=== PATIENT | female | born 1955 | race American Indian/Alaskan Native ===

== ENCOUNTER 2016-07-18 22:16 | Emergency (ER) | payer OTHER ==
[2016-07-18 22:27] VITALS: BMI 42.6
--- NOTE | 2016-07-18 23:24 | PDOC ---
History of Present Illness - History of Present Illness Initial Comments: 07/18/16 23:39 Patient is a 61 year old female with significant medical hx of asthma, HTN, and DVT who is presenting to the ED for concern of DVT. Patient reports a history of left lower extremity DVT nine months ago, for which she was treated with blood thinners up until six months ago. She states that her right leg is becoming restless and developing bruising similar to her last DVT. The patient put bengay on her leg with little relief. She was told by PMD to come to the ED for rule out ultrasound. Patient denies any lower extremity swelling or pain, shortness of breath, chest pain, lightheadedness, or dizziness. PMD: Edith Durant <Lesley Day - Last Filed: 07/19/16 01:17> <Portillo Swift - Last Filed: 07/19/16 01:23> - General Chief Complaint: Pain, Acute Stated Complaint: PAIN Time Seen by Provider: 07/18/16 23:08 Past History <Lesley Day - Last Filed: 07/19/16 01:17> - Past Medical History Asthma: Yes COPD: Yes HTN: Yes Suicide Attempt (Hx): No - Immunization History Immunization Up to Date: Yes - Psycho/Social/Smoking Cessation Hx Anxiety: No Suicidal Ideation: No Smoking Status: No Smoking History: Never smoked Have you smoked in the past 12 months: No Number of Cigarettes Smoked Daily: 0 If you are a former smoker, when did you quit?: 30 years ago Information on smoking cessation initiated: No Hx Alcohol Use: No Drug/Substance Use Hx: No Substance Use Type: None <Portillo Swift - Last Filed: 07/19/16 01:23> - Past Medical History Allergies/Adverse Reactions: Allergies Allergy/AdvReac Type Severity Reaction Status Date / Time erythromycin base Allergy Hives Verified 07/18/16 22:27 [Erythromycin Base] Home Medications: Ambulatory Orders Montelukast Na [Singulair -] 10 mg PO HS #0 tablet 01/03/13 Valsartan [Diovan] 160 mg PO DAILY #0 tablet 01/03/13 Albuterol Sulfate Inhaler - [Ventolin HFA Inhaler -] 2 inh PO Q4HWA PRN Aspirin [ASA -] 81 mg PO DAILY 08/20/14 Fluticasone/Salmeterol [Advair Hfa 230-21 Mcg Inhaler] 1 inh PO BID 08/20/14 Albuterol 2.5/Ipratropium 0.5 [Duoneb -] 1 neb IH BID 11/25/14 Review of Systems - Review of Systems Comments:: 07/18/16 23:46 GENERAL/CONSTITUTIONAL: No fever or chills. No weakness. HEAD, EYES, EARS, NOSE AND THROAT: No change in vision. No ear pain or discharge. No sore throat. CARDIOVASCULAR: No chest pain or shortness of breath. RESPIRATORY: No cough, wheezing, or hemoptysis. GASTROINTESTINAL: No nausea, vomiting, diarrhea or constipation. GENITOURINARY: No dysuria, frequency, or change in urination. MUSCULOSKELETAL: Right leg restlessness and bruising. No joint or muscle swelling or pain. No neck or back pain. SKIN: No rash NEUROLOGIC: No headache, vertigo, loss of consciousness, or change in strength/ sensation. <Lesley Day - Last Filed: 07/19/16 01:17> *Physical Exam - Vital Signs Last Vital Signs Temp Pulse Resp BP Pulse Ox 97.6 F 98 H 18 127/82 95 07/18/16 22:20 07/18/16 22:20 07/18/16 22:20 07/18/16 22:20 07/18/16 22:20 - Physical Exam Comments: 07/18/16 23:47 GENERAL: Awake, alert, and fully oriented, in no acute distress HEAD: No signs of trauma EYES: PERRLA, EOMI, sclera anicteric, conjunctiva clear ENT: Auricles normal inspection, hearing grossly normal, nares patent, oropharynx clear without exudates. Moist mucosa NECK: Normal ROM, supple, no lymphadenopathy, JVD, or masses LUNGS: Breath sounds equal, clear to auscultation bilaterally. No wheezes, and no crackles HEART: Regular rate and rhythm, normal S1 and S2, no murmurs, rubs or gallops ABDOMEN: Soft, nontender, normoactive bowel sounds. No guarding, no rebound. No masses EXTREMITIES: Two bruises, one on each leg just below the knees. No swelling, no pain. No clubbing or cyanosis. NEUROLOGICAL: Cranial nerves II through XII grossly intact. Normal speech, normal gait SKIN: Warm, Dry, normal turgor, no rashes or lesions noted. ENDOCRINE: No increased thirst. No abnormal weight change. HEMATOLOGIC/LYMPHATIC: No anemia, easy bleeding, or history of blood clots. ALLERGIC/IMMUNOLOGIC: No hives or skin allergy. <Lesley Day - Last Filed: 07/19/16 01:17> - Vital Signs Last Vital Signs Temp Pulse Resp BP Pulse Ox 97.6 F 98 H 18 127/82 95 07/18/16 22:20 07/18/16 22:20 07/18/16 22:20 07/18/16 22:20 07/18/16 22:20 <Portillo Swift - Filed: 07/19/16 01:23> ED Treatment Course - RADIOLOGY Radiograph Interpretation: 07/19/16 01:17 Net Developer Software Engineer C: (osman) Report Date: 07/18/2016 23:32:00 Report Status: Preliminary Begin of Report Content Referring Physician: Portillo Swift Patient Name: Paulette Kerr THIS IS A PRELIMINARYREPORT FROM [facility]LE OPERATOR EXAM: Venous duplex bilateral lower extremities IMAGES: 41 I NDICATION: Rule out DVT DATE OF SERVICE: 2016-07-18 23:32:46.0 COMPARISON: none FINDINGS: There is no DVT in the right or left lower extremity. IMPRESSION: No DVT. THIS DOCUMENT HAS BEEN ELECTRONICALLY SIGNED Tomy Velasco MD 07/19/2016 00:14 SHELBY Kessler Please call [facility] Installation Engineer [phone] with questions. End of Report Content <Lesley Day - Last Filed: 07/19/16 01:17> - RADIOLOGY Radiology Studies Ordered: Category Date Time Status DUPLEX VASCUL US-2LEGS [US] Stat Ultrasound 07/18/16 23:12 Ordered <Portillo Swift - Last Filed: 07/19/16 01:23> Medical Decision Making - Medical Decision Making 07/19/16 01:21 Duplex negative for both legs <Portillo Swift - Last Filed: 07/19/16 01:23> *DC/Admit/Observation/Transfer - Attestations Scribe Attestion: 07/18/16 23:55 Documentation prepared by Lesley Day, acting as medical radiation therapist for Portillo Swift MD. <Lesley Day - Last Filed: 07/19/16 01:17> - Discharge Dispostion Admit: No - Attestations Physician Attestion: 07/18/16 23:24 I, Dr. Portillo Swift, attest that this document has been prepared under my direction and personally reviewed by me in its entirety. I further attest, that it accurately reflects all work, treatment, procedures and medical decision -making performed by me. <Portillo Swift - Last Filed: 07/19/16 01:23> Diagnosis at time of Disposition: Multiple bruises - Discharge Dispostion Disposition: HOME Condition at time of disposition: Good - Referrals Referrals: Edith Durant [Primary Care Provider] - - Patient Instructions Printed Discharge Instructions: Easy Bruising (Alternative Therapy), DI for Contusion Additional Instructions: Ms. Kerr- Please follow up with your regular doctor. Your Ultrasounds were both negative. No Blood CLots Best- DR. Portillo Swift
[2016-07-19 01:47] VITALS: BP 123/80; PULSE 75; TEMP 98.3
== END 2016-07-19 01:46 | disposition home or self-care (01) ==
LOC: JER 22:16
DX: T14.8 Other injury of unspecified body region (principal); J45.909 Unspecified asthma, uncomplicated; I10 Essential (primary) hypertension; Z86.718 Personal history of other venous thrombosis and embolism; Z87.891 Personal history of nicotine dependence
CPT/HCPCS: 93970-TC; 99281-25

== ENCOUNTER 2016-11-11 20:32 | Emergency (ER) | payer OTHER ==
[2016-11-11 20:57] VITALS: BP 125/55; PULSE 80; TEMP 98.2; BMI 44.3
--- NOTE | 2016-11-11 21:23 | PDOC ---
Attending Attestation - Resident Resident Name: Agapito Vera - ED Attending Attestation I have performed the following: I have examined & evaluated the patient, The case was reviewed & discussed with the resident, I agree w/resident's findings & plan, Exceptions are as noted - HPI HPI: 11/11/16 21:21 "lung pain, on and off past 48Hours - Physicial Exam PE: 11/11/16 21:21 VSS/NAD No Hypoxia - Medical Decision Making 11/11/16 21:[address] Vera Assessment and plan
--- NOTE | 2016-11-11 21:45 | PDOC ---
History of Present Illness - General Chief Complaint: Pain Stated Complaint: LUNG PAIN Time Seen by Provider: 11/11/16 21:11 History Source: Patient Exam Limitations: No Limitations - History of Present Illness Initial Comments: 61yo F with PMH asthma/COPD, HTN, DVT presents c/o lung pain/chest pain. Pain started 3 hrs ago while pt was in a friend's basement office, and pt had chills at the time. Pt took her Ventolin inhaler which did not relieve pain. Pain is described as constant, pressure, radiating from Left lower lung to mid sub- sternum, rated 8/10. Pt has had similar lung pain before when she had bronchitis. Pt reports her asthma has been acting up for the last 2 days which she attributes to the change in weather and to trying to adjust her Singulair dosing to nighttime, but then she would forget to take it. Pt denies fever, SOB , sick contacts. 11/11/16 21:42 Timing/Duration: 1-3 hours Severity: moderate Associated Symptoms: reports: chest pain. denies: cough, diaphoresis, headaches , shortness of breath, syncope Past History - Past Medical History Allergies/Adverse Reactions: Allergies Allergy/AdvReac Type Severity Reaction Status Date / Time erythromycin base Allergy Hives Verified 11/11/16 20:54 [Erythromycin Base] Home Medications: Ambulatory Orders Montelukast Na [Singulair -] 10 mg PO HS #0 tablet 01/03/13 Valsartan [Diovan] 160 mg PO DAILY #0 tablet 01/03/13 Albuterol Sulfate Inhaler - [Ventolin HFA Inhaler -] 2 inh PO Q4HWA PRN Fluticasone/Salmeterol [Advair Hfa 230-21 Mcg Inhaler] 1 inh PO BID 08/20/14 Albuterol 2.5/Ipratropium 0.5 [Duoneb -] 1 neb IH BID 11/25/14 Celebrex 0 mg PO DAILY 11/11/16 Asthma: Yes COPD: Yes DVT: Yes HTN: Yes Suicide Attempt (Hx): No - Immunization History Immunization Up to Date: Yes - Psycho/Social/Smoking Cessation Hx Anxiety: No Suicidal Ideation: No Smoking Status: No Smoking History: Former smoker Have you smoked in the past 12 months: No Number of Cigarettes Smoked Daily: 0 If you are a former smoker, when did you quit?: 30 years ago Information on smoking cessation initiated: No Hx Alcohol Use: No Drug/Substance Use Hx: No Substance Use Type: None Review of Systems - Review of Systems Able to Perform ROS?: Yes Is the patient limited B[place]an proficient: No Constitutional: Yes: Chills. No: Diaphoresis, Fever HEENTM: No: Recent change in vision, Ear Pain, Nose Pain, Throat Pain Respiratory: No: Cough, Orthopnea, Shortness of Breath, Stridor, Wheezing, Hemoptysis Cardiac (ROS): Yes: Chest Pain. No: Edema, Irregular Heart Rate, Lightheadedness, Palpitations, Syncope ABD/GI: Yes: Nausea (earlier today, slight). No: Abdominal Distended, Constipated, Diarrhea, Rectal Bleeding, Vomiting, Abdominal cramping : No: Burning, Dysuria, Hematuria Musculoskeletal: Yes: Back Pain (chronic), Joint Pain (Right shoulder pain, pt reports hx of bursitis and attributes pain to injection wearing off). No: Muscle Pain Integumentary: No: Dryness, Lesions, Rash Neurological: No: Headache, Weakness, Dizziness *Physical Exam - Vital Signs Last Vital Signs Temp Pulse Resp BP Pulse Ox 98.2 F 80 20 125/55 97 11/11/16 20:55 11/11/16 20:55 11/11/16 20:55 11/11/16 20:55 11/11/16 20:55 - Physical Exam General Appearance: Yes: Nourished, Appropriately Dressed, Moderate Distress, Obese HEENT: positive: EOMI, Normal Voice, Other (moist mucous membranes). negative: Pale Conjunctivae, Scleral Icterus (R), Scleral Icterus (L) Neck: positive: Trachea midline, Supple Respiratory/Chest: positive: Lungs Clear, Normal Breath Sounds. negative: Chest Tender (non tender to palpation, pt could localize where chest/lung pain originated as Left lower lung in her back), Respiratory Distress, Accessory Muscle Use Cardiovascular: positive: Regular Rhythm, Regular Rate, S1, S2. negative: Murmur Vascular Pulses: Dorsalis-Pedis (R): 3+, Doralis-Pedis (L): 3+ Gastrointestinal/Abdominal: positive: Soft. negative: Distended, Guarding, Rebound, Tenderness Extremity: positive: Swelling (Left LE +1 pitting edema). negative: Calf Tenderness, Erythema Integumentary: positive: Dry, Warm. negative: Rash Neurologic: positive: Fully Oriented, Alert, Normal Response, Motor Strength 5/5 ED Treatment Course - LABORATORY CBC & Chemistry Diagram: 11/11/16 22:10 11/11/16 22:10 Medical Decision Making - Medical Decision Making 61yo F with PMH asthma/COPD, HTN, DVT presenting with lung pain/chest pain. Pt moderately distressed and tearful on exam. Chest non-tender to palpation. Pt localizes origin of pain to Left lower lung in her back radiating to mid sub sternal. Pt reports that pain feels similar to last time she had bronchitis. Left LE +1 pitting edema noted on exam. EKG CXR ignacio LE Duplex US CBC with diff, CMP Trop d-dimer INR 11/11/16 22:07 11/12/16 00:39 CBC with diff - WBC 12.0 CMP unremarkable Trop (-) d-dimer (-) INR wnl EKG - sinus rhythm with 1st degree AV block, prolonged QTc 483. 11/12/16 01:20 CXR sans acute pathology, official report pending. Duplex US negative bilaterally for DVT. Tylenol 1g IVPB given for pain. Pt resting comfortably on f/u. Pt can go home. Advised to take Tylenol for pain. *DC/Admit/Observation/Transfer Diagnosis at time of Disposition: Atypical chest pain - Discharge Dispostion Disposition: HOME Condition at time of disposition: Improved Admit: No - Patient Instructions Printed Discharge Instructions: DI for Atypical Chest Pain Additional Instructions: Please return to hospital for persistent or worsening symptoms. Please follow-up with Primary Care Doctor. Please take Tylenol for pain.
[2016-11-11 22:23] LABS: BASOPHIL 0.5 % (0-2.0); MCH 28.5 pg (25.7-33.7); MCHC 33.2 g/dl (32.0-36.0); MEAN CELL VOLUME 85.8 fl (80-96); MEAN PLT VOLUME 9.1 fl (7.5-11.1); NEUTROPHILS 65.2 % (42.8-82.8); PLATELET COUNT 222 K/MM3 (134-434); RDW 14.4 % (11.6-15.6)
[2016-11-11 22:35] LABS: INR 1.01 (0.82-1.09)
[2016-11-11 22:38] LABS: D-DIMER < 200 ng/ml (<200-235)
[2016-11-11 23:00] LABS: ALBUMIN 3.4 g/dl (3.4-5.0); ANION GAP 10 (8-16); BILIRUBIN,TOTAL 0.3 mg/dL (0.2-1.0); CALCIUM 8.9 mg/dL (8.5-10.1); CO2 25 mmol/L (21-32); CREATININE 1.2 mg/dL (0.55-1.02); GLUCOSE,RANDOM 108 mg/dL (74-106); SGOT/AST 15 U/L (15-37); SGPT/ALT 20 U/L (12-78); TOT PROT 6.6 g/dl (6.4-8.2)
[2016-11-11 23:02] LABS: ALK PHOS 113 U/L (45-117); CPK 159 IU/L (26-192); TROPONIN I < 0.02 ng/ml (0.00-0.05)
[2016-11-11] MEDS ORDERED: morphine CARPU-JECT 2 MG/1 ML DISP.SYRIN IVPUSH ONE (23:35)
[2016-11-11] MEDS ORDERED: KETOROLAC TROMETHAMINE 60 MG/2 ML VIAL IVPUSH ONE (23:47)
[2016-11-11] MEDS ORDERED: ACETAMINOPHEN 1000 MG/100 ML VIAL (NON FORMULARY) IVPB ONE (23:50)
[2016-11-11] MEDS ORDERED: ACETAMINOPHEN INJECTION 100 ML IVPB ONE (23:56)
--- NOTE | 2016-11-12 17:39 | EKG ---
Test Reason : Blood Pressure : / mmHG Vent. Rate : 082 BPM Atrial Rate : 082 BPM P-R Int : 250 ms QRS Dur : 088 ms QT Int : 414 ms P-R-T Axes : 059 006 016 degrees QTc Int : 483 ms SINUS RHYTHM WITH 1ST DEGREE A-V BLOCK NONSPECIFIC ST AND T WAVE ABNORMALITY PROLONGED QT ABNORMAL ECG WHEN COMPARED WITH ECG OF 05-NOV-2014 01:54, ST-T ABNORMALITIES IN PRECORDIAL LEADS REPEAT EKG IF CLINICALLY INDICATED Confirmed by JADA CARTER MD ([id number]) on 11/12/2016 5:39:17 PM Referred By: Confirmed By:JADA CARTER MD
== END 2016-11-12 01:49 | disposition home or self-care (01) ==
LOC: JER 20:32
PROC: 3E033NZ Introduction of Analgesics, Hypnotics, Sedatives into Peripheral Vein, Percutaneous Approach (ICD-10-PCS; principal; 2016-11-11)
DX: R07.89 Other chest pain (principal); J45.909 Unspecified asthma, uncomplicated; J44.9 Chronic obstructive pulmonary disease, unspecified; I10 Essential (primary) hypertension; Z86.718 Personal history of other venous thrombosis and embolism; Z87.891 Personal history of nicotine dependence
CPT/HCPCS: 36415; 71010-TC; 80053; 82553; 84484; 85025; 85379; 85610; 93005; 93010; 93970-TC; 99284-25

== ENCOUNTER 2017-06-02 08:00 | Inpatient (IN) | payer BC ==
[2017-05-29 15:03] VITALS: BMI 47.3
[2017-06-02] MEDS ORDERED: methylPREDNISolone NA SUCC 40 MG/1 ML VIAL ONE (10:47)
[2017-06-02] MEDS ORDERED: methylPREDNISolone NA SUCC 40 MG/1 ML VIAL IVPUSH ONE ×2 (10:52)
[2017-06-02] MEDS ORDERED: ALBUTEROL SO4 0.083% IH SOL 2.5 MG/3 ML VIAL.NEB. NEB ONE ×3 (11:33→21:18)
[2017-06-02] MEDS ORDERED: MIDAZOLAM HCL 2 MG/2 ML SINGLE DOSE VIAL ONE (12:31)
[2017-06-02] MEDS ORDERED: BUPIVACAINE HCL/PF 0.5% (5MG/ML) 10 ML VIAL ONE (12:37)
[2017-06-02] MEDS ORDERED: ceFAZolin SODIUM 1 GM VIAL ONE (12:49)
[2017-06-02] MEDS ORDERED: fentaNYL CITRATE 250 MCG/5 ML VIAL ONE (12:49)
[2017-06-02] MEDS ORDERED: LIDOCAINE HCL/PF 2% SDV 5ML VIAL ONE (12:49)
[2017-06-02] MEDS ORDERED: DEXAMETHASONE SOD PHOSPHATE 4 MG/1 ML VIAL ONE ×2 (12:49→15:14)
[2017-06-02] MEDS ORDERED: PROPOFOL 20 ML ONE ×2 (12:50)
[2017-06-02] MEDS ORDERED: ROCURONIUM BROMIDE 50 MG/5 ML VIAL ONE ×2 (12:50)
[2017-06-02] MEDS ORDERED: ceFAZolin SODIUM 1 GM VIAL IVPB ONE (13:28)
[2017-06-02] MEDS ORDERED: ONDANSETRON 4 MG/2 ML VIAL IVPUSH PRN ×2 (13:32→15:23)
[2017-06-02] MEDS ORDERED: SEVOFLURANE 250 ML BTL ONE (13:35)
[2017-06-02] MEDS ORDERED: BUPIVACAINE HCL/PF 0.5% (5MG/ML) 10 ML VIAL IJ ONE ×2 (14:02→15:12)
--- NOTE | 2017-06-02 15:34 | OP ---
Operative Note - Note: Operative Date: 06/02/17 Pre-Operative Diagnosis: Morbid Obesity. Hypertension. Sleep Apnea Operation: Laparoscopic Vertical Sleeve Gastrectomy. Wedge Biopsy of Liver. Diagnostic Laparoscopy Findings: Greater curve sleeve gastrectomy performed with #[address] Wedge Biopsy performed on enlarged left lobe of liver Post-Operative Diagnosis: Same as Pre-op (Hepatomegaly) Surgeon: Salas Farrell Author Agent: Sanjuanita Brown Anesthesia: General Specimens Removed: Greater curve of stomach. Wedge biopsy of left liver Estimated Blood Loss (mls): 30 Operative Report Dictated: Yes
[2017-06-02] MEDS ORDERED: ONDANSETRON 4 MG/2 ML VIAL ONE (15:45)
[2017-06-02] MEDS ORDERED: FAMOTIDINE 20 MG/50 ML IVPB 20 MG/50 ML MG IVPB ONE (15:46)
[2017-06-02] MEDS ORDERED: METOCLOPRAMIDE HCL INJECTION 10 MG/2 ML VIAL ONE (15:46)
--- NOTE | 2017-06-02 15:52 | SURG ---
Surgery Food Processing Chemist Note Food Processing Chemist: Sanjuanita rBown PA-C Date of Service: 06/02/17 Diagnosis: morbid obesity Procedure: Laparoscopic Vertical Sleeve Gastrectomy. Wedge Biopsy of Liver. Diagnostic Laparoscopy I was present for the entirety of the operative procedure. For further detail, please refer to operative report. Visit type - Case Type Case Type: Scheduled Admission - Emergency Emergency Visit: No - New patient This patient is new to me today: Yes Date on this admission: 06/02/17
[2017-06-02] MEDS ORDERED: FAMOTIDINE 20 MG PREMIXED IVPB IVPB ONE (15:55)
[2017-06-02] MEDS ORDERED: ONDANSETRON 4 MG/2 ML VIAL IVPUSH ONE (16:15)
[2017-06-02] MEDS ORDERED: ALBUTEROL SO4 0.083% IH SOL 2.5 MG/3 ML VIAL.NEB. NEB PRN (16:16)
--- NOTE | 2017-06-02 16:40 | OP ---
DATE OF OPERATION: 06/02/2017 PREOPERATIVE DIAGNOSES: 1. Morbid obesity. 2. Hypertension. 3. Sleep apnea. POSTOPERATIVE DIAGNOSES: 1. Morbid obesity. 2. Hypertension. 3. Sleep apnea. 4. Hepatomegaly. PROCEDURE PERFORMED: 1. Laparoscopic vertical sleeve gastrectomy. 2. Wedge biopsy of the left lobe of the liver. 3. Diagnostic laparoscopy. OPERATING SURGEON: Angie Farrell MD ADJUNCT PROFESSOR OF VOICE: QUAN Camacho ANESTHESIA: General. OPERATIVE PROCEDURE: The patient was brought in to the operating room, placed on the OR table in a supine position. All precautions were taken initially including padding for the back and the feet and Venodyne boots were placed on both lower extremities. At that point the abdomen was prepped and draped in the usual manner. A Veress needle was placed in the left upper quadrant and a pneumoperitoneum was established. A number 12 bladeless trocar was placed in the left upper quadrant. Through that trocar, a laparoscopic camera was placed. Under direct vision, a number 15 bladeless trocar was placed in the midline in a supraumbilical position, followed by a number 5 bladeless trocar in the right upper quadrant and a number 5 bladeless trocar below the left costal margin. A Erica liver retractor was placed in the epigastrium to retract the left lobe of the liver. The left lobe was noted to be extremely enlarged and very difficult to retract even with the liver retractor. The liver had a slightly irregular texture to it, although nothing obvious. It was decided that a biopsy would be performed. At that point, the LigaSure device was used to dissect a piece off the edge of the left lobe of the liver. This was a triangular-shaped piece and was sent to pathology as a specimen. The liver parenchyma, any minor oozing was easily controlled with the electrocautery. At this juncture, Anesthesia placed the patient in 20-degree reverse Trendelenburg position. The pylorus was noted on the distal stomach and, from there, 6 cm was measured proximally. Here, the operating surgeon lifted the stomach toward the anterior abdominal wall as the phlebotomy lab assistant surgeon retracted the gastrocolic ligament inferiorly. The LigaSure device was used to dissect the gastrocolic ligament off the greater curve of the stomach. This then continued in a superior and vertical direction, dissecting the short gastric vessels off the greater curve until a final short gastric vessel was divided between the superior pole of the spleen and the proximal fundus. At this juncture, Anesthesia advanced a number 40 bougie, which had been sitting in the proximal stomach. With the bougie held along the lesser curvature, a series of nat were performed, the 1st two being black load nat 6 cm in length along the bougie. This was followed by a series of purple load nat, also 6 cm in length, until a final staple was fired in the left upper quadrant and the greater curve was now completely detached from the lesser curve. It should be noted that prior to firing these nat, both the anterior and posterior gallagher were checked that they were equal, and in area of esophagogastric junction, approximately 1 to 1.5 cm of serosa remained on the anterior and posterior surfaces. At this juncture, saline was placed around the staple line. Anesthesia then inflated the bougie to 35 mm of pressure. There was found to be no leaks from anywhere in the staple line and the stomach distended all the way to the pylorus, showing no obstruction. At this juncture, Anesthesia removed the bougie and the resected greater curvature was removed through the number 15 trocar site, sent off the field as specimen to Pathology. Under direct vision, the number 15 trocar site was closed with endo-closure device to prevent internal hernia and to prevent bleeding. Under direct vision, all trocars were then removed and pneumoperitoneum was released. All trocar sites received 0.25% Marcaine, were closed with 4-0 Biosyn in subcuticular fashion. Dressings were applied. Patient awoke from anesthesia and transferred out of the operating room to the recovery room in stable condition. Anesthesia in the case was general. Surgeon, Dr. Farrell. Cistern Room Working Supervisor was Sanjuanita Brown, physician's phlebotomy lab assistant. Expected blood loss was 30 mL. Patient transferred to recovery room in stable condition. ANGIE FARRELL M.D. STEVEN/[id number]
[2017-06-02] MEDS ORDERED: METOCLOPRAMIDE HCL INJECTION 10 MG/2 ML VIAL IVPB ONE (16:53)
[2017-06-02 16:55] LABS: HEMOGLOBIN 14.2 GM/dL (10.7-15.3); MCH 29.6 pg (25.7-33.7); MCHC 33.8 g/dl (32.0-36.0); MEAN CELL VOLUME 87.6 fl (80-96); MEAN PLT VOLUME 9.3 fl (7.5-11.1); PLATELET COUNT 265 K/MM3 (134-434); RDW 14.8 % (11.6-15.6); WHITE BLOOD COUNT 10.4 K/mm3 (4.0-10.0)
[2017-06-02 17:38] LABS: ALBUMIN 3.6 g/dl (3.4-5.0); ANION GAP 10 (8-16); BILIRUBIN,TOTAL 0.3 mg/dL (0.2-1.0); BLOOD UREA NITROGEN 22 mg/dL (7-18); CALCIUM 8.7 mg/dL (8.5-10.1); CHLORIDE 104 mmol/L (98-107); CO2 26 mmol/L (21-32); CREATININE 1.2 mg/dL (0.55-1.02); GLUCOSE,RANDOM 214 mg/dL (74-106); POTASSIUM 3.9 mmol/L (3.5-5.1); SGOT/AST 68 U/L (15-37); SGPT/ALT 59 U/L (12-78); SODIUM 140 mmol/L (136-145); TOT PROT 6.8 g/dl (6.4-8.2)
[2017-06-02 17:39] LABS: ALK PHOS 94 U/L (45-117)
[2017-06-02] MEDS: ENOXAPARIN NA (PORCINE) 40 MG/0.4 ML DISP.SYRIN SQ SCH ×2 (18:30→21:17)
[2017-06-02] MEDS: LACTATED RINGERS SOLUTION 1,000 ML IV SCH (18:31)
[2017-06-02] MEDS: METOCLOPRAMIDE HCL INJECTION 10 MG/2 ML VIAL IVPUSH SCH ×2 (18:31→21:15)
[2017-06-02] MEDS: SODIUM CHLORIDE 1,000 ML IV SCH (18:31)
[2017-06-02] MEDS ORDERED: ALBUTEROL SO4 2.5/IPRATROPIUM 0.5 INH SOL 3 ML VIAL.NEB. NEB ONE (21:17)
[2017-06-02] MEDS: FAMOTIDINE 20 MG/50 ML IVPB 20 MG/50 ML MG IVPB SCH (21:20)
[2017-06-02] MEDS: MEPERIDINE HCL CARPU-JECT 50 MG/1 ML DISP.SYRIN IM PRN (21:37)
[2017-06-02] MEDS: ALBUTEROL SO4 0.083% IH SOL 2.5 MG/3 ML VIAL.NEB. NEB PRN (22:00)
[2017-06-03] MEDS: METOCLOPRAMIDE HCL INJECTION 10 MG/2 ML VIAL IVPUSH SCH ×4 (03:42→22:33)
[2017-06-03] MEDS: MEPERIDINE HCL CARPU-JECT 50 MG/1 ML DISP.SYRIN IM PRN ×2 (03:50→16:27)
[2017-06-03] MEDS ORDERED: ALBUTEROL SO4 0.083% IH SOL 2.5 MG/3 ML VIAL.NEB. NEB ONE ×2 (05:30→14:33)
[2017-06-03] MEDS: ALBUTEROL SO4 0.083% IH SOL 2.5 MG/3 ML VIAL.NEB. NEB PRN ×3 (05:40→20:35)
[2017-06-03 07:22] LABS: HEMATOCRIT 39.2 % (32.4-45.2); HEMOGLOBIN 12.9 GM/dL (10.7-15.3); MCHC 32.9 g/dl (32.0-36.0); MEAN CELL VOLUME 88.4 fl (80-96); MEAN PLT VOLUME 9.2 fl (7.5-11.1); PLATELET COUNT 248 K/MM3 (134-434); RBC 4.44 M/mm3 (3.60-5.2); RDW 14.8 % (11.6-15.6); WHITE BLOOD COUNT 13.9 K/mm3 (4.0-10.0)
[2017-06-03] MEDS ORDERED: INSULIN (NOVOLOG) ASPART 100 UNITS/ML 10ML VIAL ONE (07:44)
[2017-06-03 07:49] LABS: ALBUMIN 3.3 g/dl (3.4-5.0); ANION GAP 8 (8-16); BILIRUBIN,TOTAL 0.5 mg/dL (0.2-1.0); BLOOD UREA NITROGEN 20 mg/dL (7-18); CALCIUM 8.1 mg/dL (8.5-10.1); CHLORIDE 108 mmol/L (98-107); CO2 28 mmol/L (21-32); CREATININE 1.1 mg/dL (0.55-1.02); GLUCOSE,RANDOM 126 mg/dL (74-106); POTASSIUM 4.1 mmol/L (3.5-5.1); SGOT/AST 47 U/L (15-37); SGPT/ALT 50 U/L (12-78); SODIUM 144 mmol/L (136-145); TOT PROT 6.3 g/dl (6.4-8.2)
[2017-06-03 07:50] LABS: ALK PHOS 82 U/L (45-117)
[2017-06-03] MEDS: FAMOTIDINE 20 MG/50 ML IVPB 20 MG/50 ML MG IVPB SCH ×2 (09:19→22:33)
[2017-06-03] MEDS: ENOXAPARIN NA (PORCINE) 40 MG/0.4 ML DISP.SYRIN SQ SCH ×2 (09:19→22:33)
[2017-06-03] MEDS: SODIUM CHLORIDE 1,000 ML IV SCH ×2 (09:20→12:00)
--- NOTE | 2017-06-03 11:43 | PN ---
Progress Note (short form) - Note Progress Note: Patient asleep in chair easily aroused . States she feeling better than last nite. Denies any nausea. Incisions intact. Upper GI reviewed will start clear liquids. Encouraged patient to ambulate every hour around the unit. reviewed with patient post op diet and plan for discharge. Patient lives alone plan for discharge in AM Friday.
--- NOTE | 2017-06-03 15:17 | PN ---
Progress Note (short form) - Note Progress Note: Post op day#1.S/P Laproscopic gastric sleeve placement under Ga uneventful.Patient stable.No any anesthesia related problem.Patient DC from the anesthesia care.
[2017-06-03] MEDS: LACTATED RINGERS SOLUTION 1,000 ML IV SCH (16:42)
--- NOTE | 2017-06-03 17:52 | PN ---
Progress Note (short form) - Note Progress Note: POD#1 Afebrile; VSS P- 81-88 BP-110/71 Pt doing well No N/V Tolerating po clear liquids- 2 oz po tid Ambulating ok- slightly limited UGI- no leak, no obstruction WBC-13.9 (slight increase) H/H-12.9/39.2 P- Increase ambulation Cont DVT prophylaxis- SCD, Lovenox Check labs tomorrow
[2017-06-04] MEDS: METOCLOPRAMIDE HCL INJECTION 10 MG/2 ML VIAL IVPUSH SCH ×4 (03:30→21:07)
[2017-06-04 07:07] LABS: HEMATOCRIT 37.9 % (32.4-45.2); HEMOGLOBIN 12.4 GM/dL (10.7-15.3); MCH 28.8 pg (25.7-33.7); MCHC 32.7 g/dl (32.0-36.0); MEAN CELL VOLUME 88.1 fl (80-96); PLATELET COUNT 227 K/MM3 (134-434); RDW 15.1 % (11.6-15.6); WHITE BLOOD COUNT 12.9 K/mm3 (4.0-10.0)
[2017-06-04 07:26] LABS: ALBUMIN 3.4 g/dl (3.4-5.0); ANION GAP 7 (8-16); BLOOD UREA NITROGEN 17 mg/dL (7-18); CALCIUM 8.3 mg/dL (8.5-10.1); CHLORIDE 111 mmol/L (98-107); CO2 27 mmol/L (21-32); GLUCOSE,RANDOM 96 mg/dL (74-106); POTASSIUM 3.6 mmol/L (3.5-5.1); SGOT/AST 34 U/L (15-37); SGPT/ALT 43 U/L (12-78); SODIUM 145 mmol/L (136-145)
[2017-06-04 07:28] LABS: ALK PHOS 77 U/L (45-117); BILIRUBIN,TOTAL 0.4 mg/dL (0.2-1.0); TOT PROT 6.2 g/dl (6.4-8.2)
[2017-06-04] MEDS: ALBUTEROL SO4 0.083% IH SOL 2.5 MG/3 ML VIAL.NEB. NEB PRN ×3 (09:00→20:21)
[2017-06-04] MEDS ORDERED: PT OWN MED DRAWER 7, Y5N ONE (09:26)
[2017-06-04] MEDS: FAMOTIDINE 20 MG/50 ML IVPB 20 MG/50 ML MG IVPB SCH ×2 (09:27→21:08)
[2017-06-04] MEDS: VALSARTAN 160 MG TABLET (UD) PO SCH (09:27)
[2017-06-04] MEDS: ENOXAPARIN NA (PORCINE) 40 MG/0.4 ML DISP.SYRIN SQ SCH ×3 (09:28→21:07)
--- NOTE | 2017-06-04 16:00 | PATH ---
Surgical Pathology Report Patient Name: ASHISH NGO Med. Rec. #: [id number] /Age/Gender: 1955 (Age: 62) / F Account: [id number] Location: 4 W TELEMETRY U Taken: 06/01/2017 Received: 06/03/2017 Reported: 06/04/2017 Physicians: Salas Farrell M.D. Specimen(s) Received A: GREATER CURVATURE STOMACH B: LIVER BIOPSY Clinical History Morbid obesity Final Diagnosis A. STOMACH, GREATER CURVATURE, LAPAROSCOPIC VERTICAL SLEEVE GASTRECTOMY: PORTION OF STOMACH WITH MILD CHRONIC GASTRITIS. IMMUNOHISTOCHEMICAL STAIN FOR H. PYLORI IS NEGATIVE. B. LIVER, BIOPSY: LIVER PARENCHYMA WITH MILD STEATOSIS (~20%). MILD FOCAL INCREASE IN IRON SEEN WITHIN RARE HEPATOCYTES AND KUPFFER CELLS HIGHLIGHTED BY IRON SPECIAL STAIN. NO INCREASE IN FIBROSIS ON TRICHROME STAIN. Electronically Signed Mami Carter M.D. Gross Description A. Received in formalin, labeled "greater curvature of stomach," is a 86 gram, 15.0 x 3.8 x 3.0 cm. portion of stomach with a stapled margin of resection. The serosa is graf-terrazas with minimal attached fat. The mucosa is graf-pink with normal folds. No mucosal masses are identified. Disaster Recovery Consultant sections are submitted in one cassette. B. Received in formalin labeled "liver biopsy," graf, irregular portion of soft tissue, consistent with a liver biopsy. Disaster Recovery Consultant sections are submitted in one cassette. /06/03/2017 saudi06/03/2017
[2017-06-04] MEDS: ACETAMINOPHEN 325 MG TABLET (FP) PO PRN (16:31)
[2017-06-04] MEDS: oxyCODONE HCL 5 MG TABLET PO PRN (16:31)
[2017-06-04] MEDS: SODIUM CHLORIDE 1,000 ML IV SCH (16:40)
[2017-06-04] MEDS: LACTATED RINGERS SOLUTION 1,000 ML IV SCH (16:40)
[2017-06-05] MEDS: ACETAMINOPHEN 325 MG TABLET (FP) PO PRN ×2 (01:06→08:57)
[2017-06-05] MEDS: oxyCODONE HCL 5 MG TABLET PO PRN ×2 (01:06→08:57)
[2017-06-05 03:16] VITALS: PULSE 79
[2017-06-05] MEDS: METOCLOPRAMIDE HCL INJECTION 10 MG/2 ML VIAL IVPUSH SCH ×2 (03:45→08:57)
--- NOTE | 2017-06-05 08:25 | PN ---
Progress Note (short form) - Note Progress Note: POD#3 Afebrile; VSS Pt OOB-chair Tolerating po clear liquids- 3oz po TID P/E- Ext- no swelling Abd- trocar sites healing well WBC-12.9 (06/04/)(slight decrease) H/H-12.4/37.9 BUN/CR- 17/1.0 (decreased) P- D/C home Cont Lovenox at home F/U in 1 week
[2017-06-05] MEDS: ALBUTEROL SO4 0.083% IH SOL 2.5 MG/3 ML VIAL.NEB. NEB PRN (08:28)
[2017-06-05 08:54] VITALS: BP 142/88; TEMP 98.5
[2017-06-05] MEDS: FAMOTIDINE 20 MG/50 ML IVPB 20 MG/50 ML MG IVPB SCH (08:59)
[2017-06-05] MEDS: ENOXAPARIN NA (PORCINE) 40 MG/0.4 ML DISP.SYRIN SQ SCH (08:59)
[2017-06-05] MEDS: VALSARTAN 160 MG TABLET (UD) PO SCH (08:59)
== END 2017-06-05 11:17 | disposition home or self-care (01) | DRG 621 ==
LOC: EDSTATUS 08:00 → JSAMEDAYSX 09:25 → J4W 17:35
PROVIDERS: ADMIT Surgery; ATTEND Surgery
PROC: 0DB64Z3 Excision of Stomach, Percutaneous Endoscopic Approach, Vertical (ICD-10-PCS; principal; 2017-06-02 11:00)
PROC: 0FB24ZX Excision of Left Lobe Liver, Percutaneous Endoscopic Approach, Diagnostic (ICD-10-PCS; 2017-06-02 11:00)
DX: E66.01 Morbid (severe) obesity due to excess calories (principal); I10 Essential (primary) hypertension; R16.0 Hepatomegaly, not elsewhere classified; Z68.42 Body mass index [BMI] 45.0-49.9, adult; G47.30 Sleep apnea, unspecified
CPT/HCPCS: 36415; 74241-TC-FY; 80053; 85027; 86850; 86900; 86901; 88307-TC; 94010; 94640; 94760; J7030

== ENCOUNTER 2017-06-11 00:45 | Inpatient (IN) | payer BC ==
--- NOTE | 2017-06-11 02:21 | PDOC ---
History of Present Illness - General History Source: Patient, Old Records Exam Limitations: No Limitations - History of Present Illness Initial Comments: 06/11/17 03:52 Patient is a 62 year old female with a significant past medical history of HTN, and Asthma, s/p gastric sleeve may 27, 2017. who presents to the ED with complaints of shortness of breath that began 2 days ago. Patient reports experiencing increased Sob on exertion, as well as at baseline. She reports experiencing associated symptoms of decreased appetite of both liquid and solid ingestion, lethargy, and left lower extremity pain. Patient reports having a hx of DVT in her LLE, but is unsure if this pain is similar to past experiences. Patient states while in the ED, while the Nurse was administering the nasal cannula she began to feel better. As per patient, Post gastric sleeve, youre not supposed to eat solids, and she is able to do that. Stating the Real pain is the left lower extremity. Denies chest pain. Denies fevers, chills. Denies contact with sick individuals, out of state travelling. Denies any other symptoms. Allergies: Erythromycin. Social history: No smoking. No alcohol. No illicit drugs. Surgical history: Gastric sleeve. PMD: Dr. Durant <Girish Lyle - Last Filed: 06/11/17 06:28> - General History Source: Patient <Fabricio Thao - Last Filed: 06/11/17 19:44> - General Chief Complaint: Shortness of Breath Stated Complaint: WEAKNESS Time Seen by Provider: 06/11/17 02:17 Past History <Girish Lyle - Last Filed: 06/11/17 06:28> - Past Medical History Anemia: No Asthma: Yes Cancer: No Cardiac Disorders: No CVA: No COPD: Yes CHF: No DVT: Yes Dementia: No Diabetes: No GI Disorders: No Disorders: No HTN: Yes Hypercholesterolemia: No Liver Disease: No Seizures: No Thyroid Disease: No - Immunization History Immunization Up to Date: Yes - Suicide/Smoking/Psychosocial Hx Smoking Status: No Smoking History: Never smoked Have you smoked in the past 12 months: No Number of Cigarettes Smoked Daily: 0 If you are a former smoker, when did you quit?: 30 years ago Information on smoking cessation initiated: No Hx Alcohol Use: No Drug/Substance Use Hx: No Substance Use Type: None Hx Substance Use Treatment: No <MianletyFabricio - Last Filed: 06/11/17 19:44> - Past Medical History Allergies/Adverse Reactions: Allergies Allergy/AdvReac Type Severity Reaction Status Date / Time erythromycin base Allergy Hives Verified 06/11/17 01:54 [Erythromycin Base] Home Medications: Ambulatory Orders Montelukast Na [Singulair -] 10 mg PO HS #0 tablet 01/03/13 Valsartan [Diovan] 160 mg PO DAILY #0 tablet 01/03/13 Albuterol 0.083% Nebulizer Lorna [Ventolin 0.083%] 1 neb NEB Q4H PRN 06/11/17 Albuterol Sulfate Inhaler - [Ventolin Hfa Inhaler -] 1 - 2 inh PO Q4H PRN Famotidine [Pepcid] 20 mg PO DAILY 06/11/17 Oxycodone HCl/Acetaminophen [Percocet 5-325 mg Tablet] 1 tab PO Q6H PRN Review of Systems - Review of Systems Able to Perform ROS?: Yes Comments:: 06/11/17 03:52 CONSTITUTIONAL: Absent: fever, no chills, no fatigue EYES: Absent: visual changes ENT: Absent: ear pain, no sore throat CARDIOVASCULAR: Absent: chest pain, no palpitations RESPIRATORY: Absent: cough, no SOB GI: +Nausea. +vomiting. Absent: abdominal pain, no constipation, no diarrhea GENITOURINARY: Absent: dysuria, no frequency, no hematuria MUSCULOSKELETAL: +Left lower extremity pain. Absent: back pain, SKIN: Absent: rash <Girish Lyle - Last Filed: 06/11/17 06:28> *Physical Exam - Vital Signs Last Vital Signs Temp Pulse Resp BP Pulse Ox 97.5 F L 75 18 139/68 98 06/11/17 01:51 06/11/17 01:51 06/11/17 01:51 06/11/17 01:51 06/11/17 01:51 - Physical Exam Comments: 06/11/17 03:53 GENERAL: +Morbidly obese. Well-appearing, well-nourished. No apparent distress. HEENT: Normocephalic, atraumatic. PERRL, EOM intact. CARDIOVASCULAR: Normal S1, S2. Regular rate and rhythm. PULMONARY: Clear to auscultation bilaterally. ABDOMEN: +Well healed wound on abdomen. +Mild tenderness throughout abdomen. Soft, non-distended, non-tender. EXTREMITIES: +Left lower extremity tenderness to left calf. Normal ROM in all four extremities. No gross deformities. SKIN: Warm, dry. No rash NEUROLOGICAL: No focal neurological deficits. <Girish Lyle - Last Filed: 06/11/17 06:28> - Vital Signs Last Vital Signs Temp Pulse Resp BP Pulse Ox 97.5 F L 75 18 139/68 98 06/11/17 01:51 06/11/17 01:51 06/11/17 01:51 06/11/17 01:51 06/11/17 01:51 <Fabricio Thao - Last Filed: 06/11/17 19:44> Heart Score/ECG Review - ECG Intrepretation Comment:: 06/11/17 06:28 Sinus rhythm with 1st degress AV block ST & T wave abnormality, consider inferior ischemia ST & T wave abnormality, consider anterolateral ischemia Prolonged QT Abnormal ECG Vent. rate 79 bpm [place] interval 216 ms QRS duration 90 ms <Girish Lyle - Last Filed: 06/11/17 06:28> ED Treatment Course - LABORATORY CBC & Chemistry Diagram: 06/11/17 02:35 06/11/17 02:35 - ADDITIONAL ORDERS Additional order review: Laboratory Results 06/11/17 06/11/17 06/11/17 02:35 02:35 02:35 PT with INR 13.90 H INR 1.23 H D-Dimer 1705 H Sodium 141 Potassium 3.6 Chloride 102 Carbon Dioxide 24 Anion Gap 15 BUN 33 H Creatinine 2.2 H Creat Clearance w eGFR 22.69 Random Glucose 83 Calcium 8.9 Magnesium 2.1 Total Bilirubin 0.6 D AST 17 ALT 32 Alkaline Phosphatase 99 Creatine Kinase 211 H Troponin I < 0.02 B-Natriuretic Peptide 47.9 Total Protein 6.7 Albumin 3.6 Lipase 140 06/11/17 02:35 RBC 4.52 MCV 87.5 MCHC 33.5 RDW 14.7 MPV 8.8 Neutrophils % 71.3 Lymphocytes % 17.7 D Monocytes % 8.7 Eosinophils % 1.7 Basophils % 0.6 <Girish Lyle - Last Filed: 06/11/17 06:28> - LABORATORY CBC & Chemistry Diagram: 06/11/17 02:35 06/11/17 02:35 <Fabricio Thao - Last Filed: 06/11/17 19:44> Medical Decision Making - Medical Decision Making 06/11/17 19:44 Dr. Thao: The scribe's documentation has been prepared under my direction and personally reviewed by me in its entirery. I confirm that the note above accurately reflects all work, treatment, procedures, and medical decision making performed by me. <Fabricio Thao - Last Filed: 06/11/17 19:44> *DC/Admit/Observation/Transfer - Attestations Scribe Attestion: 06/11/17 03:54 Documentation prepared by Girish Lyle, acting as medical unit secretary for Fabricio Thao MD/DO. <Girish Lyle - Last Filed: 06/11/17 06:28> <Fabricio Thao - Last Filed: 06/11/17 19:44> Diagnosis at time of Disposition: Shortness of breath Acute renal failure Qualifiers: Acute renal failure type: unspecified Qualified Code(s): N17.9 - Acute kidney failure, unspecified - Discharge Dispostion Condition at time of disposition: Stable
[2017-06-11 02:53] LABS: BASO % 0.6 % (0-2.0); EOS % 1.7 % (0-4.5); HEMATOCRIT 39.6 % (32.4-45.2); HEMOGLOBIN 13.3 GM/dL (10.7-15.3); LYMPH % 17.7 % (8-40); MCH 29.4 pg (25.7-33.7); MCHC 33.5 g/dl (32.0-36.0); MEAN CELL VOLUME 87.5 fl (80-96); MEAN PLT VOLUME 8.8 fl (7.5-11.1); MONO % 8.7 % (3.8-10.2); NEUT % 71.3 % (42.8-82.8); PLATELET COUNT 260 K/MM3 (134-434); RBC 4.52 M/mm3 (3.60-5.2); RDW 14.7 % (11.6-15.6); WHITE BLOOD COUNT 13.6 K/mm3 (4.0-10.0)
[2017-06-11 03:13] LABS: INR 1.23 (0.82-1.09); PROTHROMBIN TIME (PATIENT) 13.9 SEC (9.98-11.88)
[2017-06-11 03:37] LABS: ALBUMIN 3.6 g/dl (3.4-5.0); ANION GAP 15 (8-16); BLOOD UREA NITROGEN 33 mg/dL (7-18); CALCIUM 8.9 mg/dL (8.5-10.1); CHLORIDE 102 mmol/L (98-107); CO2 24 mmol/L (21-32); CREATININE 2.2 mg/dL (0.55-1.02); GLUCOSE,RANDOM 83 mg/dL (74-106); MAGNESIUM 2.1 mg/dL (1.8-2.4); POTASSIUM 3.6 mmol/L (3.5-5.1); SGOT/AST 17 U/L (15-37); SGPT/ALT 32 U/L (12-78); SODIUM 141 mmol/L (136-145)
[2017-06-11 03:40] LABS: ALK PHOS 99 U/L (45-117); BILIRUBIN,TOTAL 0.6 mg/dL (0.2-1.0); TOT PROT 6.7 g/dl (6.4-8.2)
[2017-06-11 03:41] LABS: N-TERMINAL BNP 47.9 pg/ml (5-125)
[2017-06-11] MEDS ORDERED: ENOXAPARIN NA (PORCINE) 60 MG/0.6 ML DISP.SYRIN SQ ONE (03:56)
[2017-06-11] MEDS ORDERED: ENOXAPARIN NA (PORCINE) 120 MG/0.8 ML DISP.SYRIN SQ SCH (04:00)
[2017-06-11] MEDS ORDERED: SODIUM CHLORIDE 500 ML IV STA ×2 (07:27→09:55)
--- NOTE | 2017-06-11 11:35 | PDOC ---
*Physical Exam - Vital Signs Last Vital Signs Temp Pulse Resp BP Pulse Ox 98.4 F 95 H 18 117/72 98 06/11/17 06:52 06/11/17 06:52 06/11/17 06:52 06/11/17 06:52 06/11/17 08:11 - Physical Exam Comments: 06/11/17 11:32 Patient was endorsed to me by Dr. willoughby. Patient is a 62-year-old female with history of morbid obesity, hypertension, asthma, status post gastric sleeve 2 weeks previously who presented to the ER with atraumatic bilateral lower extremity pain (left greater than right) as well as worsening shortness of breath. Patient reports that she missed a dose of subcutaneous Lovenox the day after receiving the gastric sleeve. Patient also reports significantly decreased intake of by mouth solids and liquids. In the ER, patient is awake and alert, normotensive, with EKG showing sinus rhythm with first-degree AV block and T wave inversions in V3-v6 which appear new when compared to an EKG from November 2016. D-dimer is also significantly elevated. Chest x-ray reveals no evidence of infiltrate or effusion and first set of cardiac enzymes is within normal limit. Left lower extremity Doppler ultrasound shows no evidence of DVT. Patient's BUN and creatinine is elevated when compared to baseline consistent with acute renal insufficiency. I suspect PE. Patient has received a dose of Lovenox-120 mg subcutaneous at 4 AM for suspected DVT/PE. Case discussed with Dr. De La Torre. We will continue to hydrate. Patient will be admitted to telemetry further evaluation and treatment. ED Treatment Course - LABORATORY CBC & Chemistry Diagram: 06/11/17 02:35 06/11/17 02:35 - ADDITIONAL ORDERS Additional order review: Laboratory Results 06/11/17 06/11/17 06/11/17 02:35 02:35 02:35 PT with INR 13.90 H INR 1.23 H D-Dimer 1705 H Sodium Potassium Chloride Carbon Dioxide Anion Gap BUN Creatinine Creat Clearance w eGFR Random Glucose Calcium Magnesium Total Bilirubin AST ALT Alkaline Phosphatase Creatine Kinase Creatine Kinase Index CK-MB (CK-2) Troponin I B-Natriuretic Peptide 47.9 Total Protein Albumin Lipase 140 Blood Type O POSITIVE Antibody Screen Negative 06/11/17 02:35 PT with INR INR D-Dimer Sodium 141 Potassium 3.6 Chloride 102 Carbon Dioxide 24 Anion Gap 15 BUN 33 H Creatinine 2.2 H Creat Clearance w eGFR 22.69 Random Glucose 83 Calcium 8.9 Magnesium 2.1 Total Bilirubin 0.6 D AST 17 ALT 32 Alkaline Phosphatase 99 Creatine Kinase 211 H Creatine Kinase Index 0.8 CK-MB (CK-2) 1.714 Troponin I < 0.02 B-Natriuretic Peptide Total Protein 6.7 Albumin 3.6 Lipase Blood Type Antibody Screen 06/11/17 02:35 RBC 4.52 MCV 87.5 MCHC 33.5 RDW 14.7 MPV 8.8 Neutrophils % 71.3 Lymphocytes % 17.7 D Monocytes % 8.7 Eosinophils % 1.7 Basophils % 0.6 - Medications Given in the ED: ED Medications Discontinued Medications Generic Name Dose Route Start Last Admin Trade Name Freq PRN Reason Stop Dose Admin Sodium Chloride 500 mls @ 500 mls/hr 06/11/17 07:27 06/11/17 09:18 Normal Saline - IV 06/11/17 08:26 500 mls/hr ASDIR STA Administration Sodium Chloride 500 mls @ 500 mls/hr 06/11/17 09:55 06/11/17 10:00 Normal Saline - IV 06/11/17 10:54 500 mls/hr ASDIR STA Administration *DC/Admit/Observation/Transfer Diagnosis at time of Disposition: Shortness of breath Acute renal failure Qualifiers: Acute renal failure type: unspecified Qualified Code(s): N17.9 - Acute kidney failure, unspecified - Discharge Dispostion Condition at time of disposition: Fair Admit: Yes - Referrals Referrals: Edith Durant [Primary Care Provider] - - Patient Instructions - Post Discharge Activity
--- NOTE | 2017-06-11 12:25 | EKG ---
Test Reason : Blood Pressure : / mmHG Vent. Rate : 079 BPM Atrial Rate : 079 BPM P-R Int : 216 ms QRS Dur : 090 ms QT Int : 426 ms P-R-T Axes : 066 005 -34 degrees QTc Int : 488 ms SINUS RHYTHM WITH 1ST DEGREE A-V BLOCK PROLONGED QT ABNORMAL ECG WHEN COMPARED WITH ECG OF 12-NOV-2016 00:26, T WAVE INVERSION NOW EVIDENT IN LATERAL LEADS Confirmed by BRONSON MUSE, ERLIN ([id number]) on 06/11/2017 12:24:51 PM Referred By: Confirmed By:ERLIN DOBSON MD
--- NOTE | 2017-06-11 13:05 | CONSULT ---
Consult Consult Specialty:: Nephrology Reason for Consultation:: COOKIE - History of Present Illness Chief Complaint: shortness of breath and lower ext edema History of Present Illness: Pt is a 62 year old female with pmhx of obesity, HTN, asthma and gastric sleeve on 05/27/17 who presents to the ER with shortness of breath and with lower ext edema. She says that she gets the edema when she stands and that is goes awake when she lays down. She was found to have elevated creatinine and I was called to evaluate her. She denies dysuria or hematuria. She say that she has not been eating or drinking for the last several days. She is currently being treated and worked up for PE. She denies history of kidney disease. She denies nsaid use. She does have abdominal discomfort. 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 History of Recent Travel: No Home Medications - Allergies Allergies/Adverse Reactions: Allergies Allergy/AdvReac Type Severity Reaction Status Date / Time erythromycin base Allergy Hives Verified 06/11/17 01:54 [Erythromycin Base] - Home Medications Home Medications: Ambulatory Orders Montelukast Na [Singulair -] 10 mg PO HS #0 tablet 01/03/13 Valsartan [Diovan] 160 mg PO DAILY #0 tablet 01/03/13 Albuterol 0.083% Nebulizer Lorna [Ventolin 0.083%] 1 neb NEB Q4H PRN 06/11/17 Albuterol Sulfate Inhaler - [Ventolin Hfa Inhaler -] 1 - 2 inh PO Q4H PRN Famotidine [Pepcid] 20 mg PO DAILY 06/11/17 Oxycodone HCl/Acetaminophen [Percocet 5-325 mg Tablet] 1 tab PO Q6H PRN Family Disease History - Family Disease History Family Disease History: Diabetes: Father ([place]), Mother ([place]), Heart Disease: Father, Mother, Respiratory: Brother, Sister Review of Systems - Review of Systems Constitutional: reports: Malaise Eyes: reports: No Symptoms HENT: reports: No Symptoms Neck: reports: No Symptoms Cardiovascular: reports: Edema, Shortness of Breath. denies: Palpitations Respiratory: reports: SOB, SOB on Exertion. denies: Cough Gastrointestinal: reports: Abdominal Pain Genitourinary: reports: No Symptoms Musculoskeletal: reports: No Symptoms Integumentary: reports: No Symptoms Neurological: reports: No Symptoms Endocrine: reports: No Symptoms Hematology/Lymphatic: reports: No Symptoms Psychiatric: reports: No Symptoms Physical Exam Vital Signs: Vital Signs Temperature 98.4 F 06/11/17 06:52 Pulse Rate 95 H 06/11/17 06:52 Respiratory Rate 18 06/11/17 06:52 Blood Pressure 117/72 06/11/17 06:52 O2 Sat by Pulse Oximetry (%) 98 06/11/17 08:11 Constitutional: Yes: Calm Eyes: Yes: Conjunctiva Clear HENT: Yes: Atraumatic Neck: Yes: Supple Cardiovascular: Yes: S1, S2 Respiratory: Yes: CTA Bilaterally, On Nasal O2 Gastrointestinal: Yes: Soft, Abdomen, Obese, Tenderness Renal/: Yes: WNL Musculoskeletal: Yes: WNL Edema: Yes Edema: LLE: Trace, RLE: Trace Neurological: Yes: Oriented Psychiatric: Yes: Oriented Labs: CBC, BMP 06/11/17 02:35 06/11/17 02:35 Laboratory Tests 11/05/14 11/25/14 05/21/17 07:40 01:41 18:27 WBC Hgb Plt Count Sodium Potassium BUN Creatinine 0.9 D 1.2 D 1.1 H 06/02/17 06/03/17 06/04/17 16:15 06:57 06:40 WBC Hgb Plt Count Sodium Potassium BUN Creatinine 1.2 H 1.1 H 1.0 06/11/17 06/11/17 02:35 02:35 WBC 13.6 H Hgb 13.3 Plt Count 260 Sodium 141 Potassium 3.6 BUN 33 H Creatinine 2.2 H Imaging - Results Chest X-ray: Report Reviewed Ultrasound: Report Reviewed (neg dvt) Problem List - Problems (1) Acute renal failure Code(s): N17.9 - ACUTE KIDNEY FAILURE, UNSPECIFIED Qualifiers: Acute renal failure type: unspecified Qualified Code(s): N17.9 - Acute kidney failure, unspecified (2) Shortness of breath Code(s): R06.02 - SHORTNESS OF BREATH (3) Benign essential hypertension Code(s): I10 - ESSENTIAL (PRIMARY) HYPERTENSION (4) Morbid obesity Code(s): E66.01 - MORBID (SEVERE) OBESITY DUE TO EXCESS CALORIES Assessment/Plan Current Medications Generic Name Dose Route Start Last Admin Trade Name Freq PRN Reason Stop Dose Admin Enoxaparin Sodium 120 mg 06/11/17 04:00 06/11/17 04:00 Lovenox - SQ 120 mg ONCE VINNIE Administration Impression 1. COOKIE 2. obesity 3. dyspnea 4. r/o PE 5. HTN Plan - agree with hydration - will restart fluids - check ua and lytes - will get renal ultrasound once abd pain is improved - will follow Dr Jimenez
[2017-06-11 13:38] VITALS: BMI 43.4
--- NOTE | 2017-06-11 15:45 | PN ---
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
[2017-06-11] MEDS: SODIUM CHLORIDE 1,000 ML IV SCH (15:55)
[2017-06-11] MEDS: ALBUTEROL SO4 2.5/IPRATROPIUM 0.5 INH SOL 3 ML VIAL.NEB. NEB SCH ×2 (16:05→21:14)
--- NOTE | 2017-06-11 16:43 | CONS ---
DATE OF CONSULTATION: 06/11/2017 PULMONARY CONSULTATION REFERRING PHYSICIAN: Leisa De La Torre M.D. HISTORY OF PRESENT ILLNESS: The patient is a 62-year-old black female known to me from previous hospitalization as well as followup, with past medical history of morbid obesity, status post laparoscopic gastric sleeve 2 weeks ago, hypertension, asthma, intubated, nonsmoker, admitted to [facility] with a complaint of a 1-day history of increasing shortness of breath, dyspnea on exertion and palpitations. The patient states she was doing well since surgery, but having difficulty eating and drinking liquids. The past day or so, she started noticing increasing lower extremity edema, which increases when sitting and standing, and resolves when lying down. She apparently was on subcutaneous Lovenox at home, but missed a dose the day after receiving the gastric sleeve. She states that she has had increased shortness of breath. She always mild shortness of breath which is relieved by her inhaled bronchodilator. Yesterday she started developing marked dyspnea with minimal exertion, and chest heaviness as well as palpitations, at which time she presented to the emergency room. In the ER, she received a dose of Lovenox 120 mg. She underwent a duplex of her lower extremities, which revealed no evidence of DVT. So she was transferred to the medical telemetry unit for monitoring. She denies any history of tobacco use earlier. There is no history of occupational exposure to chemicals or fumes. PAST MEDICAL HISTORY: Again, includes chronic asthma, maintained on inhaled bronchodilators, hypertension, morbid obesity, status post laparoscopic gastric sleeve. REVIEW OF SYSTEMS: Positive dyspnea. No cough. No chest pain. No palpitations. Positive chest heaviness. No nausea. No vomiting. Positive decreased p.o. intake. Positive lower extremity edema. CURRENT MEDICATIONS: Lovenox 120 x1, normal saline. PHYSICAL EXAMINATION: General: The patient is an obese female, awake, alert, in no acute distress. Vitals: She is currently afebrile. Blood pressure is 99/55. Respiratory rate is 18. Weight is 312 pounds. O2 saturation is 97% on 3 L. HEENT: Normocephalic, atraumatic. Neck: Supple. Heart: Regular S1, S2. Chest: Clear. Abdomen: Soft. Bowel sounds are positive. Extremities: No cyanosis or edema. LABORATORY STUDIES: WBC is 13.6, hemoglobin 13.3, hematocrit 39.6, platelet count 260,000. INR is 1.23. D-dimer is 1705. Chemistry: BUN 33, creatinine 2.2. BNP is 47. Chest x-ray reveals no infiltrates and no effusions. IMPRESSION: 1. Dyspnea. Possible pulmonary embolism. The patient is at increased risk secondary to recent surgery as well as morbid obesity. 2. History of asthma. 3. Mild obstructive sleep apnea on sleep study, apnea-hypopnea index 5.1. 4. Acute kidney injury. 5. Hypertension. PLAN: IV fluids, inhaled bronchodilators, anticoagulation until the patient can undergo a CTA and/or VQ scan. Monitor electrolytes, renal function. MARSHA ALLEN M.D. [id number]
[2017-06-11] MEDS: HEPARIN NA (PORCINE) 5,000 UNITS/ML 1ML VIAL IVPUSH PRN (21:33)
[2017-06-11] MEDS: HEPARIN SOD,PORK IN 0.45% NACL 25,000 UNITS/500 ML INFUS.BAG IVPB SCH (21:33)
[2017-06-12] MEDS: ALBUTEROL SO4 2.5/IPRATROPIUM 0.5 INH SOL 3 ML VIAL.NEB. NEB SCH ×4 (07:50→20:06)
[2017-06-12 07:58] LABS: CHLORIDE 106 mmol/L (98-107); POTASSIUM 3.6 mmol/L (3.5-5.1); SODIUM 145 mmol/L (136-145)
[2017-06-12 08:04] LABS: ANION GAP 16 (8-16); BLOOD UREA NITROGEN 24 mg/dL (7-18); CALCIUM 8.6 mg/dL (8.5-10.1); CO2 23 mmol/L (21-32); CREATININE 1.1 mg/dL (0.55-1.02); GLUCOSE,RANDOM 76 mg/dL (74-106)
[2017-06-12] MEDS: FAMOTIDINE 20 MG/50 ML IVPB 20 MG/50 ML MG IVPB SCH ×2 (09:08→21:37)
[2017-06-12 09:38] LABS: TOT PROT 6.2 g/dl (6.4-8.2)
[2017-06-12 09:39] LABS: ALBUMIN 3.2 g/dl (3.4-5.0); ALK PHOS 88 U/L (45-117); BILIRUBIN,TOTAL 0.8 mg/dL (0.2-1.0); MAGNESIUM 2.2 mg/dL (1.8-2.4); SGOT/AST 16 U/L (15-37); SGPT/ALT 27 U/L (12-78)
[2017-06-12] MEDS ORDERED: FAMOTIDINE IV 20 MG/12 ML VIAL IVPUSH SCH (10:00)
--- NOTE | 2017-06-12 11:25 | HP ---
Admitting History and Physical - Primary Care Physician PCP: Leisa De La Torre - Admission Chief Complaint: SOB History of Present Illness: Patient was endorsed to me by Dr. willoughby. Patient is a 62-year-old female with history of morbid obesity, hypertension, asthma, status post gastric sleeve 2 weeks previously who presented to the ER with atraumatic bilateral lower extremity pain (left greater than right) as well as worsening shortness of breath. Patient reports that she missed a dose of subcutaneous Lovenox the day after receiving the gastric sleeve. Patient also reports significantly decreased intake of by mouth solids and liquids. In the ER, patient is awake and alert, normotensive, with EKG showing sinus rhythm with first-degree AV block and T wave inversions in V3-v6 which appear new when compared to an EKG from November 2016. D-dimer is also significantly elevated. Chest x-ray reveals no evidence of infiltrate or effusion and first set of cardiac enzymes is within normal limit. Left lower extremity Doppler ultrasound shows no evidence of DVT. Patient's BUN and creatinine is elevated when compared to baseline consistent with acute renal insufficiency. I suspect PE. Patient has received a dose of Lovenox-120 mg subcutaneous at 4 AM for suspected DVT/PE. Case discussed with Dr. De La Torre. We will continue to hydrate. Patient will be admitted to telemetry further evaluation and treatment. 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 History of Recent Travel: No Home Medications - Allergies Allergies/Adverse Reactions: Allergies Allergy/AdvReac Type Severity Reaction Status Date / Time erythromycin base Allergy Hives Verified 06/11/17 01:54 [Erythromycin Base] - Home Medications Home Medications: Ambulatory Orders Montelukast Na [Singulair -] 10 mg PO HS #0 tablet 01/03/13 Valsartan [Diovan] 160 mg PO DAILY #0 tablet 01/03/13 Albuterol 0.083% Nebulizer Lorna [Ventolin 0.083%] 1 neb NEB Q4H PRN 06/11/17 Albuterol Sulfate Inhaler - [Ventolin Hfa Inhaler -] 1 - 2 inh PO Q4H PRN Famotidine [Pepcid] 20 mg PO DAILY 06/11/17 Oxycodone HCl/Acetaminophen [Percocet 5-325 mg Tablet] 1 tab PO Q6H PRN Family Disease History - Family Disease History Family Disease History: Diabetes: Father ([place]), Mother ([place]), Heart Disease: Father, Mother, Respiratory: Brother, Sister Review of Systems - Review of Systems Constitutional: reports: Lethargy, Malaise, Weakness Eyes: reports: No Symptoms HENT: reports: No Symptoms Neck: reports: No Symptoms Cardiovascular: reports: Chest Pain, Palpitations, Shortness of Breath Respiratory: reports: Cough, SOB Gastrointestinal: reports: No Symptoms Genitourinary: reports: No Symptoms Musculoskeletal: reports: Muscle Weakness Integumentary: reports: No Symptoms Neurological: reports: No Symptoms Endocrine: reports: No Symptoms Hematology/Lymphatic: reports: No Symptoms Psychiatric: reports: No Symptoms Physical Examination Vital Signs: Vital Signs Temperature 97.2 F L 06/12/17 10:18 Pulse Rate 81 06/12/17 10:18 Respiratory Rate 20 06/12/17 10:18 Blood Pressure 93/54 06/12/17 10:18 O2 Sat by Pulse Oximetry (%) 100 06/12/17 09:00 Constitutional: Yes: Mild Distress Eyes: Yes: WNL HENT: Yes: WNL Neck: Yes: WNL Cardiovascular: Yes: WNL Respiratory: Yes: WNL, On Nasal O2 Gastrointestinal: Yes: WNL Renal/: Yes: WNL Musculoskeletal: Yes: WNL Extremities: Yes: WNL Peripheral Pulses WNL: Yes Wound/Incision: Yes: Open to air, Excoriated Neurological: Yes: WNL ...Motor Strength: WNL Psychiatric: Yes: WNL Labs: CBC, BMP 06/11/17 02:35 06/12/17 05:35 Imaging - Results X-ray: Report Reviewed Problem List - Problems (1) Pulmonary embolism Assessment/Plan: TO RULE OUT Code(s): I26.99 - OTHER PULMONARY EMBOLISM WITHOUT ACUTE COR PULMONALE Qualifiers: Pulmonary embolism type: other Chronicity: unspecified (2) Acute renal failure Code(s): N17.9 - ACUTE KIDNEY FAILURE, UNSPECIFIED Qualifiers: Acute renal failure type: unspecified Qualified Code(s): N17.9 - Acute kidney failure, unspecified (3) Asthma Code(s): J45.909 - UNSPECIFIED ASTHMA, UNCOMPLICATED (4) HTN (hypertension) Code(s): I10 - ESSENTIAL (PRIMARY) HYPERTENSION (5) S/P laparoscopic sleeve gastrectomy Code(s): Z98.84 - BARIATRIC SURGERY STATUS (6) Shortness of breath Code(s): R06.02 - SHORTNESS OF BREATH (7) Angina Code(s): I20.9 - ANGINA PECTORIS, UNSPECIFIED (8) Morbid obesity Code(s): E66.01 - MORBID (SEVERE) OBESITY DUE TO EXCESS CALORIES Assessment/Plan IV HEPARIN FOR PE SUSPECTED CAN NOT HAVE CT ANGIO BECAUSE OF RENAL FAILURE AWAIT V/Q SCAN RENAL/PULM DIET TELE NO ALARMS 02 SUPPORT
--- NOTE | 2017-06-12 12:54 | PN ---
Progress Note (short form) - Note Progress Note: PULMONARY States breathing is improving. +cough with yellow sputum. No fevers or chills. Last Vital Signs Temp Pulse Resp BP Pulse Ox 97.2 F L 81 20 93/54 100 06/12/17 10:18 06/12/17 10:18 06/12/17 10:18 06/12/17 10:18 06/12/17 09:00 Gen: NAD at rest Heart: RRR Lung: distant breath sounds Abd: soft, nontender Ext: no edema CBC, BMP 06/11/17 02:35 06/12/17 05:35 Active Medications Albuterol/Ipratropium (Duoneb -) 1 amp NEB RQID VINNIE Last Admin: 06/12/17 11:30 Dose: Not Given Amino Acids (Prosource No Carb Liquid Pkt) 30 ml PO BID@0800,1730 VINNIE Heparin Sodium (Porcine) (Heparin -) 1,000 unit IVPUSH PRN PRN PRN Reason: Heparin Heparin Sodium (Porcine) (Heparin -) 5,000 unit IVPUSH PRN PRN PRN Reason: Heparin Last Admin: 06/11/17 21:33 Dose: 5,000 unit Sodium Chloride (Normal Saline -) 1,000 mls @ 100 mls/hr IV ASDIR VINNIE Last Admin: 06/11/17 15:55 Dose: 100 mls/hr HEPARIN SOD,PORK IN 0.45% NACL (Heparin-1/2ns 25,000 Units/500) 25,000 units in 500 mls @ 20 mls/hr IVPB TITR VINNIE; 1,000 UNITS/HR PRN Reason: Protocol Last Admin: 06/11/17 21:33 Dose: 1,000 units/hr, 20 mls/hr Famotidine/Sodium Chloride (Pepcid 20 Mg Premixed Ivpb -) 20 mg in 50 mls @ 100 mls/hr IVPB BID VINNIE Last Admin: 06/12/17 09:08 Dose: 100 mls/hr A/P Acute Bronchitis Asthma Morbid Obesity Acute Kidney Injury improving HTN - will start azithromycin - IVF - monitor urine output, creatinine - for CTA when renal function improved
[2017-06-12] MEDS: BUDESONIDE/FORMETEROL FUMARATE 160/4.5 mcg INHALER IH SCH ×2 (13:19→21:39)
--- NOTE | 2017-06-12 16:24 | PN ---
Progress Note, Physician History of Present Illness: Pt seen and examined at bedside. She is awake and alert. She feels that her breathing is improved. - Current Medication List Current Medications: Active Medications Albuterol/Ipratropium (Duoneb -) 1 amp NEB RQID [facility] Last Admin: 06/12/17 11:30 Dose: Not Given Amino Acids (Prosource No Carb Liquid Pkt) 30 ml PO BID@0800,1730 [facility] Budesonide/Formoterol Fumarate (Symbicort 160/4.5mcg -) 2 puff IH BID [facility] Last Admin: 06/12/17 13:19 Dose: Not Given Heparin Sodium (Porcine) (Heparin -) 1,000 unit IVPUSH PRN PRN PRN Reason: Heparin Heparin Sodium (Porcine) (Heparin -) 5,000 unit IVPUSH PRN PRN PRN Reason: Heparin Last Admin: 06/11/17 21:33 Dose: 5,000 unit Sodium Chloride (Normal Saline -) 1,000 mls @ 100 mls/hr IV ASDIR [facility] Last Admin: 06/11/17 15:55 Dose: 100 mls/hr HEPARIN SOD,PORK IN 0.45% NACL (Heparin-1/2ns 25,000 Units/500) 25,000 units in 500 mls @ 20 mls/hr IVPB TITR VINNIE; 1,000 UNITS/HR PRN Reason: Protocol Last Admin: 06/11/17 21:33 Dose: 1,000 units/hr, 20 mls/hr Famotidine/Sodium Chloride (Pepcid 20 Mg Premixed Ivpb -) 20 mg in 50 mls @ 100 mls/hr IVPB BID [facility] Last Admin: 06/12/17 09:08 Dose: 100 mls/hr Levofloxacin (Levaquin -) 250 mg PO DAILY@0600 [facility] Stop: 06/16/17 06:01 Last Admin: 06/12/17 13:19 Dose: 250 mg - Objective Vital Signs: Vital Signs Temperature 97.2 F L 06/12/17 10:18 Pulse Rate 81 06/12/17 10:18 Respiratory Rate 20 06/12/17 10:18 Blood Pressure 93/54 06/12/17 10:18 O2 Sat by Pulse Oximetry (%) 100 06/12/17 09:00 Constitutional: Yes: Calm Eyes: Yes: Conjunctiva Clear HENT: Yes: Atraumatic Neck: Yes: Supple Cardiovascular: Yes: S1, S2 Respiratory: Yes: CTA Bilaterally Gastrointestinal: Yes: Soft, Abdomen, Obese Genitourinary: Yes: WNL Musculoskeletal: Yes: WNL Edema: Yes Edema: LLE: 1+, RLE: 1+ Neurological: Yes: Oriented Psychiatric: Yes: Oriented Labs: CBC, BMP 06/11/17 02:35 06/12/17 05:35 INR, PTT INR 1.23 (0.82-1.09) H 06/11/17 02:35 Problem List - Problems (1) Acute renal failure Code(s): N17.9 - ACUTE KIDNEY FAILURE, UNSPECIFIED Qualifiers: Acute renal failure type: unspecified Qualified Code(s): N17.9 - Acute kidney failure, unspecified (2) Shortness of breath Code(s): R06.02 - SHORTNESS OF BREATH (3) Benign essential hypertension Code(s): I10 - ESSENTIAL (PRIMARY) HYPERTENSION (4) Morbid obesity Code(s): E66.01 - MORBID (SEVERE) OBESITY DUE TO EXCESS CALORIES Assessment/Plan Current Medications Generic Name Dose Route Start Last Admin Trade Name Freq PRN Reason Stop Dose Admin Albuterol/Ipratropium 1 amp 06/11/17 16:00 06/12/17 11:30 Duoneb - NEB Not Given RQID VINNIE Amino Acids 30 ml 06/12/17 17:30 Prosource No Carb Liquid Pkt PO BID@0800,1730 [facility] Budesonide/Formoterol Fumarate 2 puff 06/12/17 13:30 06/12/17 13:19 Symbicort 160/4.5mcg - IH Not Given BID VINNIE Heparin Sodium (Porcine) 1,000 unit 06/11/17 15:49 Heparin - IVPUSH PRN PRN Heparin Heparin Sodium (Porcine) 5,000 unit 06/11/17 15:49 06/11/17 21:33 Heparin - IVPUSH 5,000 unit PRN PRN Administration Heparin Sodium Chloride 1,000 mls @ 100 mls/hr 06/11/17 13:45 06/11/17 15:55 Normal Saline - IV 100 mls/hr ASDIR VINNIE Administration HEPARIN SOD,PORK IN 0.45% NACL 25,000 units in 500 mls @ 20 mls/hr 06/11/17 16 :00 06/11/17 21:33 Heparin-1/2ns 25,000 Units/500 IVPB 1,000 units/hr TITR VINNIE 20 mls/hr Protocol Administration 1,000 UNITS/HR Famotidine/Sodium Chloride 20 mg in 50 mls @ 100 mls/hr 06/12/17 10:00 09:08 Pepcid 20 Mg Premixed Ivpb - IVPB 100 mls/hr BID VINNIE Administration Levofloxacin 250 mg 06/12/17 13:00 06/12/17 13:19 Levaquin - PO 06/16/17 06:01 250 mg DAILY@0600 VINNIE Administration Impression 1. COOKIE 2. obesity 3. dyspnea 4. r/o PE 5. HTN 6. hx DVT 7. dehydration Plan - will change fluids to 1/2 ns today as sodium is rising - repeat labs in am - urine studies are not back - likely COOKIE from dehydration and pre-renal disease - check renal ultrasound - will follow Dr Jimenez
[2017-06-12] MEDS: SODIUM CHLORIDE 1,000 ML IV SCH (16:48)
[2017-06-12] MEDS: SODIUM CHLORIDE 0.45% 1,000 ML IV SCH (16:52)
[2017-06-12] MEDS: AMINO ACIDS/PROTEIN HYDROLYS 30 ML LIQUID.PKT PO SCH (16:53)
--- NOTE | 2017-06-12 17:39 | CONSULT ---
Consult - text type - Consultation Consultation Note: 62 yo woman 10 days S/P SLeeve Gastrectomy Pt c/o leg swelling (R>L) and was instructed to arrive to ER Pt with previous hx of DVT Pt discharged 06/05/2017 on sub-Q injections of Lovenox at home Pt not taking adequate PO at home though she denies Vomiting BUN/CR-33/2.2 on arrival After hydration, 24/1.1 today Pt tolerating PO liquids plus apple sauce No N/V Pt in bed, encouraged to be OOB to chair and ambulate P/E-Abd- all incisions clean, dry Ext- no swelling or edema Mouth- dry mucosa I- Dehydration- now improved R/O DVT, PE Rec- full liquid diet, will advance to soft in 3 days Pul to evaluate for PE Will follow
[2017-06-12] MEDS: HEPARIN SOD,PORK IN 0.45% NACL 25,000 UNITS/500 ML INFUS.BAG IVPB SCH (20:11)
[2017-06-13 06:55] LABS: HEMATOCRIT 36.5 % (32.4-45.2); HEMOGLOBIN 12.3 GM/dL (10.7-15.3); MCH 29.5 pg (25.7-33.7); MCHC 33.6 g/dl (32.0-36.0); MEAN CELL VOLUME 87.7 fl (80-96); MEAN PLT VOLUME 9.8 fl (7.5-11.1); PLATELET COUNT 218 K/MM3 (134-434); RBC 4.16 M/mm3 (3.60-5.2); RDW 14.4 % (11.6-15.6); WHITE BLOOD COUNT 8.7 K/mm3 (4.0-10.0)
[2017-06-13] MEDS: ALBUTEROL SO4 2.5/IPRATROPIUM 0.5 INH SOL 3 ML VIAL.NEB. NEB SCH ×4 (07:04→20:40)
[2017-06-13 07:13] LABS: ANION GAP 13 (8-16); BLOOD UREA NITROGEN 13 mg/dL (7-18); CALCIUM 8.4 mg/dL (8.5-10.1); CHLORIDE 104 mmol/L (98-107); CO2 24 mmol/L (21-32); GLUCOSE,RANDOM 83 mg/dL (74-106); MAGNESIUM 1.7 mg/dL (1.8-2.4); POTASSIUM 3.3 mmol/L (3.5-5.1); SODIUM 141 mmol/L (136-145)
[2017-06-13 07:16] LABS: CREATININE 0.8 mg/dL (0.55-1.02)
[2017-06-13] MEDS: AMINO ACIDS/PROTEIN HYDROLYS 30 ML LIQUID.PKT PO SCH ×2 (07:57→17:12)
[2017-06-13] MEDS: HEPARIN NA (PORCINE) 5,000 UNITS/ML 1ML VIAL IVPUSH PRN ×3 (08:59→23:00)
[2017-06-13] MEDS: HEPARIN SOD,PORK IN 0.45% NACL 25,000 UNITS/500 ML INFUS.BAG IVPB SCH ×2 (08:59→14:41)
[2017-06-13] MEDS ORDERED: POTASSIUM CHLORIDE TABS 20 MEQ TABLET.ER (FP) PO ONE (09:30)
[2017-06-13] MEDS: FAMOTIDINE 20 MG/50 ML IVPB 20 MG/50 ML MG IVPB SCH ×2 (10:40→21:34)
[2017-06-13] MEDS: MAGNESIUM OXIDE 400 MG TABLET (FP) PO SCH ×2 (10:40→21:34)
[2017-06-13] MEDS: BUDESONIDE/FORMETEROL FUMARATE 160/4.5 mcg INHALER IH SCH ×2 (10:44→21:35)
--- NOTE | 2017-06-13 11:17 | PN ---
Progress Note, Physician Chief Complaint: CTA NEGATIVE FOR PE AWAKE ALERT SITTING UP FEELING BETTER - Current Medication List Current Medications: Active Medications Albuterol/Ipratropium (Duoneb -) 1 amp NEB RQID [facility] Last Admin: 06/13/17 11:01 Dose: 1 amp Amino Acids (Prosource No Carb Liquid Pkt) 30 ml PO BID@0800,1730 [facility] Last Admin: 06/13/17 07:57 Dose: 30 ml Budesonide/Formoterol Fumarate (Symbicort 160/4.5mcg -) 2 puff IH BID [facility] Last Admin: 06/13/17 10:44 Dose: Not Given Heparin Sodium (Porcine) (Heparin -) 1,000 unit IVPUSH PRN PRN PRN Reason: Heparin Heparin Sodium (Porcine) (Heparin -) 5,000 unit IVPUSH PRN PRN PRN Reason: Heparin Last Admin: 06/13/17 08:59 Dose: 5,000 unit HEPARIN SOD,PORK IN 0.45% NACL (Heparin-1/2ns 25,000 Units/500) 25,000 units in 500 mls @ 20 mls/hr IVPB TITR VINNIE; 1,000 UNITS/HR PRN Reason: Protocol Last Admin: 06/13/17 08:59 Dose: 1,150 units/hr, 23 mls/hr Famotidine/Sodium Chloride (Pepcid 20 Mg Premixed Ivpb -) 20 mg in 50 mls @ 100 mls/hr IVPB BID [facility] Last Admin: 06/13/17 10:40 Dose: 100 mls/hr Sodium Chloride (1/2 Normal Saline) 1,000 mls @ 115 mls/hr IV ASDIR [facility] Last Admin: 06/12/17 16:52 Dose: 115 mls/hr Levofloxacin (Levaquin -) 250 mg PO DAILY@0600 [facility] Stop: 06/16/17 06:01 Last Admin: 06/13/17 05:37 Dose: 250 mg Magnesium Oxide (Mag-Ox -) 400 mg PO BID [facility] Last Admin: 06/13/17 10:40 Dose: 400 mg - Objective Vital Signs: Vital Signs Temperature 98 F 06/13/17 10:00 Pulse Rate 78 06/13/17 10:00 Respiratory Rate 18 06/13/17 10:00 Blood Pressure 136/74 06/13/17 10:00 O2 Sat by Pulse Oximetry (%) 99 06/12/17 21:00 Constitutional: Yes: Mild Distress Eyes: Yes: WNL HENT: Yes: WNL Neck: Yes: WNL Cardiovascular: Yes: WNL Respiratory: Yes: WNL Gastrointestinal: Yes: WNL Musculoskeletal: Yes: WNL Extremities: Yes: WNL Edema: Yes Edema: LLE: 1+, RLE: 1+ Peripheral Pulses WNL: Yes Integumentary: Yes: WNL Wound/Incision: Yes: Clean/Dry Neurological: Yes: WNL ...Motor Strength: WNL Psychiatric: Yes: WNL Labs: CBC, BMP 06/13/17 06:15 06/13/17 06:15 INR, PTT INR 1.23 (0.82-1.09) H 06/11/17 02:35 Problem List - Problems (1) Pulmonary embolism Code(s): I26.99 - OTHER PULMONARY EMBOLISM WITHOUT ACUTE COR PULMONALE Qualifiers: Pulmonary embolism type: other Chronicity: unspecified (2) Acute renal failure Code(s): N17.9 - ACUTE KIDNEY FAILURE, UNSPECIFIED Qualifiers: Acute renal failure type: unspecified Qualified Code(s): N17.9 - Acute kidney failure, unspecified (3) Asthma Code(s): J45.909 - UNSPECIFIED ASTHMA, UNCOMPLICATED (4) HTN (hypertension) Code(s): I10 - ESSENTIAL (PRIMARY) HYPERTENSION (5) S/P laparoscopic sleeve gastrectomy Code(s): Z98.84 - BARIATRIC SURGERY STATUS (6) Shortness of breath Code(s): R06.02 - SHORTNESS OF BREATH (7) Angina Code(s): I20.9 - ANGINA PECTORIS, UNSPECIFIED (8) Morbid obesity Code(s): E66.01 - MORBID (SEVERE) OBESITY DUE TO EXCESS CALORIES Assessment/Plan CTA NEGATIVE FOR PE STOP HEPARIN LOVENOC DVT PROPHYLAXIS RENAL AND PULM FOLLOW UP 02 SUPPORT/NEBS DC PLANNING TOMORROW CHECK BUN/CREAT POST CTA CONTRAST
--- NOTE | 2017-06-13 11:23 | PN ---
Progress Note, Physician History of Present Illness: PULMONARY ALERT,FEELING BETTER,LESS DYSPNEIC,+ COUGH - Current Medication List Current Medications: Active Medications Albuterol/Ipratropium (Duoneb -) 1 amp NEB RQID [facility] Last Admin: 06/13/17 11:01 Dose: 1 amp Amino Acids (Prosource No Carb Liquid Pkt) 30 ml PO BID@0800,1730 [facility] Last Admin: 06/13/17 07:57 Dose: 30 ml Budesonide/Formoterol Fumarate (Symbicort 160/4.5mcg -) 2 puff IH BID [facility] Last Admin: 06/13/17 10:44 Dose: Not Given Heparin Sodium (Porcine) (Heparin -) 1,000 unit IVPUSH PRN PRN PRN Reason: Heparin Heparin Sodium (Porcine) (Heparin -) 5,000 unit IVPUSH PRN PRN PRN Reason: Heparin Last Admin: 06/13/17 08:59 Dose: 5,000 unit HEPARIN SOD,PORK IN 0.45% NACL (Heparin-1/2ns 25,000 Units/500) 25,000 units in 500 mls @ 20 mls/hr IVPB TITR VINNIE; 1,000 UNITS/HR PRN Reason: Protocol Last Admin: 06/13/17 08:59 Dose: 1,150 units/hr, 23 mls/hr Famotidine/Sodium Chloride (Pepcid 20 Mg Premixed Ivpb -) 20 mg in 50 mls @ 100 mls/hr IVPB BID [facility] Last Admin: 06/13/17 10:40 Dose: 100 mls/hr Sodium Chloride (1/2 Normal Saline) 1,000 mls @ 115 mls/hr IV ASDIR [facility] Last Admin: 06/12/17 16:52 Dose: 115 mls/hr Levofloxacin (Levaquin -) 250 mg PO DAILY@0600 [facility] Stop: 06/16/17 06:01 Last Admin: 06/13/17 05:37 Dose: 250 mg Magnesium Oxide (Mag-Ox -) 400 mg PO BID [facility] Last Admin: 06/13/17 10:40 Dose: 400 mg - Objective Vital Signs: Vital Signs Temperature 98 F 06/13/17 10:00 Pulse Rate 78 06/13/17 10:00 Respiratory Rate 18 06/13/17 10:00 Blood Pressure 136/74 06/13/17 10:00 O2 Sat by Pulse Oximetry (%) 99 06/12/17 21:00 Constitutional: Yes: Calm, Obese Eyes: Yes: WNL HENT: Yes: WNL Neck: Yes: WNL Cardiovascular: Yes: Regular Rate and Rhythm, S1, S2 Respiratory: Yes: Diminished Gastrointestinal: Yes: Normal Bowel Sounds, Soft Extremities: Yes: WNL Edema: No Labs: CBC, BMP 06/13/17 06:15 06/13/17 06:15 INR, PTT INR 1.23 (0.82-1.09) H 06/11/17 02:35 Problem List - Problems (1) S/P laparoscopic sleeve gastrectomy Code(s): Z98.84 - BARIATRIC SURGERY STATUS (2) Acute renal failure Code(s): N17.9 - ACUTE KIDNEY FAILURE, UNSPECIFIED Qualifiers: Acute renal failure type: unspecified Qualified Code(s): N17.9 - Acute kidney failure, unspecified (3) Shortness of breath Code(s): R06.02 - SHORTNESS OF BREATH (4) Morbid obesity Code(s): E66.01 - MORBID (SEVERE) OBESITY DUE TO EXCESS CALORIES (5) Asthma Code(s): J45.909 - UNSPECIFIED ASTHMA, UNCOMPLICATED (6) HTN (hypertension) Code(s): I10 - ESSENTIAL (PRIMARY) HYPERTENSION Assessment/Plan IMP DYSPNEA /TACHYCARDIA, R/O PE ASTHMA MORBID OBESITY S/P LAP SLEEVE MILD OSAS HTN COOKIE PLAN IV FLUIDS INHALED BRONCHODILATORS AC V/Q vs CTA WHEN RENAL FUNCTION IMPROVES O2 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
[2017-06-13] MEDS: SODIUM CHLORIDE 0.45% 1,000 ML IV SCH (12:30)
[2017-06-13] MEDS ORDERED: PT OWN MED DRAWER 7, Y5N ONE ×2 (14:37→16:44)
--- NOTE | 2017-06-13 15:55 | PN ---
Progress Note, Physician History of Present Illness: Pt seen and examined at bedside. She is awake and alert. She is willing to go for CTA, she understands the risks of contrast. - Current Medication List Current Medications: Active Medications Albuterol/Ipratropium (Duoneb -) 1 amp NEB RQID [facility] Last Admin: 06/13/17 11:01 Dose: 1 amp Amino Acids (Prosource No Carb Liquid Pkt) 30 ml PO BID@0800,1730 [facility] Last Admin: 06/13/17 07:57 Dose: 30 ml Budesonide/Formoterol Fumarate (Symbicort 160/4.5mcg -) 2 puff IH BID [facility] Last Admin: 06/13/17 10:44 Dose: Not Given Heparin Sodium (Porcine) (Heparin -) 1,000 unit IVPUSH PRN PRN PRN Reason: Heparin Last Admin: 06/13/17 14:41 Dose: 1,000 unit Heparin Sodium (Porcine) (Heparin -) 5,000 unit IVPUSH PRN PRN PRN Reason: Heparin Last Admin: 06/13/17 08:59 Dose: 5,000 unit HEPARIN SOD,PORK IN 0.45% NACL (Heparin-1/2ns 25,000 Units/500) 25,000 units in 500 mls @ 20 mls/hr IVPB TITR VINNIE; 1,000 UNITS/HR PRN Reason: Protocol Last Admin: 06/13/17 14:41 Dose: 1,250 units/hr, 25 mls/hr Famotidine/Sodium Chloride (Pepcid 20 Mg Premixed Ivpb -) 20 mg in 50 mls @ 100 mls/hr IVPB BID [facility] Last Admin: 06/13/17 10:40 Dose: 100 mls/hr Sodium Chloride (1/2 Normal Saline) 1,000 mls @ 115 mls/hr IV ASDIR [facility] Last Admin: 06/13/17 12:30 Dose: 115 mls/hr Levofloxacin (Levaquin -) 250 mg PO DAILY@0600 [facility] Stop: 06/16/17 06:01 Last Admin: 06/13/17 05:37 Dose: 250 mg Magnesium Oxide (Mag-Ox -) 400 mg PO BID [facility] Last Admin: 06/13/17 10:40 Dose: 400 mg Potassium Chloride (Potassium Chloride Oral Liquid) 40 meq PO ONCE ONE Stop: 06/13/17 16:31 - Objective Vital Signs: Vital Signs Temperature 98.4 F 06/13/17 14:00 Pulse Rate 87 06/13/17 14:00 Respiratory Rate 18 06/13/17 10:00 Blood Pressure 134/82 06/13/17 14:00 O2 Sat by Pulse Oximetry (%) 98 06/13/17 09:00 Constitutional: Yes: Calm Eyes: Yes: Conjunctiva Clear HENT: Yes: Atraumatic Neck: Yes: Supple Cardiovascular: Yes: S1, S2 Respiratory: Yes: CTA Bilaterally Gastrointestinal: Yes: Soft, Abdomen, Obese Genitourinary: Yes: WNL Musculoskeletal: Yes: WNL Edema: LLE: Trace, RLE: Trace Integumentary: Yes: WNL Neurological: Yes: Oriented Psychiatric: Yes: Oriented Labs: CBC, BMP 06/13/17 06:15 06/13/17 06:15 INR, PTT INR 1.23 (0.82-1.09) H 06/11/17 02:35 Problem List - Problems (1) Acute renal failure Code(s): N17.9 - ACUTE KIDNEY FAILURE, UNSPECIFIED Qualifiers: Acute renal failure type: unspecified Qualified Code(s): N17.9 - Acute kidney failure, unspecified (2) Shortness of breath Code(s): R06.02 - SHORTNESS OF BREATH (3) Benign essential hypertension Code(s): I10 - ESSENTIAL (PRIMARY) HYPERTENSION (4) Morbid obesity Code(s): E66.01 - MORBID (SEVERE) OBESITY DUE TO EXCESS CALORIES Assessment/Plan Current Medications Generic Name Dose Route Start Last Admin Trade Name Rafael PRN Reason Stop Dose Admin Albuterol/Ipratropium 1 amp 06/11/17 16:00 06/13/17 11:01 Duoneb - NEB 1 amp RQID VINNIE Administration Amino Acids 30 ml 06/12/17 17:30 06/13/17 07:57 Prosource No Carb Liquid Pkt PO 30 ml BID@0800,1730 VINNIE Administration Budesonide/Formoterol Fumarate 2 puff 06/12/17 13:30 06/13/17 10:44 Symbicort 160/4.5mcg - IH Not Given BID [facility] Heparin Sodium (Porcine) 1,000 unit 06/11/17 15:49 06/13/17 14:41 Heparin - IVPUSH 1,000 unit PRN PRN Administration Heparin Heparin Sodium (Porcine) 5,000 unit 06/11/17 15:49 06/13/17 08:59 Heparin - IVPUSH 5,000 unit PRN PRN Administration Heparin HEPARIN SOD,PORK IN 0.45% NACL 25,000 units in 500 mls @ 20 mls/hr 06/11/17 16 :00 06/13/17 14:41 Heparin-1/2ns 25,000 Units/500 IVPB 1,250 units/hr TITR VINNIE 25 mls/hr Protocol Administration 1,000 UNITS/HR Famotidine/Sodium Chloride 20 mg in 50 mls @ 100 mls/hr 06/12/17 10:00 10:40 Pepcid 20 Mg Premixed Ivpb - IVPB 100 mls/hr BID VINNIE Administration Sodium Chloride 1,000 mls @ 115 mls/hr 06/12/17 16:30 06/13/17 12:30 1/2 Normal Saline IV 115 mls/hr ASDIR VINNIE Administration Levofloxacin 250 mg 06/12/17 13:00 06/13/17 05:37 Levaquin - PO 06/16/17 06:01 250 mg DAILY@0600 VINNIE Administration Magnesium Oxide 400 mg 06/13/17 10:00 06/13/17 10:40 Mag-Ox - PO 400 mg BID VINNIE Administration Potassium Chloride 40 meq 06/13/17 16:30 Potassium Chloride Oral Liquid PO 06/13/17 16:31 ONCE ONE Impression 1. COOKIE 2. obesity 3. dyspnea 4. r/o PE 5. HTN 6. hx DVT 7. dehydration Plan - replace potassium - keep pt on fluids - check air brake man at 48 hrs - pt understands risks for radha and agrees to ct scan - will re-order urine studies - will follow Dr Jimenez
[2017-06-13] MEDS ORDERED: POTASSIUM CHLORIDE ORAL LIQUID 20 MEQ/15 ML PO ONE (16:30)
[2017-06-14 07:28] LABS: HEMATOCRIT 35.9 % (32.4-45.2); HEMOGLOBIN 12.2 GM/dL (10.7-15.3); MCH 29.6 pg (25.7-33.7); MCHC 34.1 g/dl (32.0-36.0); MEAN CELL VOLUME 86.9 fl (80-96); MEAN PLT VOLUME 9.7 fl (7.5-11.1); PLATELET COUNT 199 K/MM3 (134-434); RBC 4.14 M/mm3 (3.60-5.2); RDW 14.4 % (11.6-15.6); WHITE BLOOD COUNT 8.6 K/mm3 (4.0-10.0)
[2017-06-14] MEDS: AMINO ACIDS/PROTEIN HYDROLYS 30 ML LIQUID.PKT PO SCH (07:52)
[2017-06-14] MEDS: ALBUTEROL SO4 2.5/IPRATROPIUM 0.5 INH SOL 3 ML VIAL.NEB. NEB SCH ×3 (07:53→15:38)
[2017-06-14] MEDS: BUDESONIDE/FORMETEROL FUMARATE 160/4.5 mcg INHALER IH SCH (09:33)
[2017-06-14] MEDS: MAGNESIUM OXIDE 400 MG TABLET (FP) PO SCH (09:42)
[2017-06-14] MEDS: FAMOTIDINE 20 MG/50 ML IVPB 20 MG/50 ML MG IVPB SCH (09:43)
--- NOTE | 2017-06-14 09:59 | PN ---
Progress Note, Physician History of Present Illness: PULMONARY ALERT,NAD,-CP,SOB IMPROVED. CHEST CTA -PE - Current Medication List Current Medications: Active Medications Albuterol/Ipratropium (Duoneb -) 1 amp NEB RQID [facility] Last Admin: 06/14/17 07:53 Dose: 1 amp Amino Acids (Prosource No Carb Liquid Pkt) 30 ml PO BID@0800,1730 [facility] Last Admin: 06/14/17 07:52 Dose: 30 ml Budesonide/Formoterol Fumarate (Symbicort 160/4.5mcg -) 2 puff IH BID [facility] Last Admin: 06/14/17 09:33 Dose: Not Given Heparin Sodium (Porcine) (Heparin -) 1,000 unit IVPUSH PRN PRN PRN Reason: Heparin Last Admin: 06/13/17 23:00 Dose: 1,000 unit Heparin Sodium (Porcine) (Heparin -) 5,000 unit IVPUSH PRN PRN PRN Reason: Heparin Last Admin: 06/13/17 08:59 Dose: 5,000 unit HEPARIN SOD,PORK IN 0.45% NACL (Heparin-1/2ns 25,000 Units/500) 25,000 units in 500 mls @ 20 mls/hr IVPB TITR VINNIE; 1,000 UNITS/HR PRN Reason: Protocol Last Titration: 06/13/17 23:00 Dose: 1,350 units/hr, 27 mls/hr Famotidine/Sodium Chloride (Pepcid 20 Mg Premixed Ivpb -) 20 mg in 50 mls @ 100 mls/hr IVPB BID [facility] Last Admin: 06/14/17 09:43 Dose: 100 mls/hr Sodium Chloride (1/2 Normal Saline) 1,000 mls @ 115 mls/hr IV ASDIR [facility] Last Admin: 06/13/17 12:30 Dose: 115 mls/hr Levofloxacin (Levaquin -) 250 mg PO DAILY@0600 [facility] Stop: 06/16/17 06:01 Last Admin: 06/14/17 06:35 Dose: 250 mg Magnesium Oxide (Mag-Ox -) 400 mg PO BID [facility] Last Admin: 06/14/17 09:42 Dose: 400 mg - Objective Vital Signs: Vital Signs Temperature 98.5 F 06/14/17 06:00 Pulse Rate 78 06/14/17 06:00 Respiratory Rate 20 04/07/18 06:00 Blood Pressure 111/60 06/14/17 06:00 O2 Sat by Pulse Oximetry (%) 98 06/13/17 21:00 Constitutional: Yes: Well Nourished, Calm, Obese Eyes: Yes: WNL HENT: Yes: WNL Neck: Yes: WNL Cardiovascular: Yes: Regular Rate and Rhythm, S1, S2 Respiratory: Yes: CTA Bilaterally Gastrointestinal: Yes: Normal Bowel Sounds, Soft Extremities: Yes: WNL Edema: No Labs: CBC, BMP 06/14/17 05:00 - ....Imaging Cat Scan: Report Reviewed, Image Reviewed Problem List - Problems (1) S/P laparoscopic sleeve gastrectomy Code(s): Z98.84 - BARIATRIC SURGERY STATUS (2) Acute renal failure Code(s): N17.9 - ACUTE KIDNEY FAILURE, UNSPECIFIED Qualifiers: Acute renal failure type: unspecified Qualified Code(s): N17.9 - Acute kidney failure, unspecified (3) Shortness of breath Code(s): R06.02 - SHORTNESS OF BREATH (4) Morbid obesity Code(s): E66.01 - MORBID (SEVERE) OBESITY DUE TO EXCESS CALORIES (5) Asthma Code(s): J45.909 - UNSPECIFIED ASTHMA, UNCOMPLICATED (6) HTN (hypertension) Code(s): I10 - ESSENTIAL (PRIMARY) HYPERTENSION Assessment/Plan IMP DYSPNEA /TACHYCARIA RESOLVED ASTHMA MORBID OBESITY S/P LAP SLEEVE MILD OSAS HTN COOKIE PLAN IV FLUIDS PER RENAL INHALED BRONCHODILATORS DC HEPARIN O2 INCENTIVE SPIROMETER DVT PROPHYLAXIS DR ALLEN Problem List - Problems (1) S/P laparoscopic sleeve gastrectomy Code(s): Z98.84 - BARIATRIC SURGERY STATUS (2) Acute renal failure Code(s): N17.9 - ACUTE KIDNEY FAILURE, UNSPECIFIED Qualifiers: Acute renal failure type: unspecified Qualified Code(s): N17.9 - Acute kidney failure, unspecified (3) Shortness of breath Code(s): R06.02 - SHORTNESS OF BREATH (4) Morbid obesity Code(s): E66.01 - MORBID (SEVERE) OBESITY DUE TO EXCESS CALORIES (5) Asthma Code(s): J45.909 - UNSPECIFIED ASTHMA, UNCOMPLICATED (6) HTN (hypertension) Code(s): I10 - ESSENTIAL (PRIMARY) HYPERTENSION
[2017-06-14 10:15] LABS: ANION GAP 11 (8-16); BLOOD UREA NITROGEN 7 mg/dL (7-18); CALCIUM 8.6 mg/dL (8.5-10.1); CHLORIDE 108 mmol/L (98-107); CO2 25 mmol/L (21-32); CREATININE 0.8 mg/dL (0.55-1.02); GLUCOSE,RANDOM 82 mg/dL (74-106); POTASSIUM 3.9 mmol/L (3.5-5.1); SODIUM 144 mmol/L (136-145)
[2017-06-14 12:58] LABS: URINE APPEARANCE CLEAR; URINE BILIRUBIN NEGATIVE (<2.0 mg/dL); URINE BLOOD 2+ (NEGATIVE); URINE COLOR STRAW; URINE GLUCOSE (UA) NEGATIVE (NEGATIVE); URINE KETONE 1+ (NEGATIVE); URINE NITRITE NEGATIVE (NEGATIVE); URINE PROTEIN NEGATIVE (NEGATIVE); URINE UROBILINOGEN NEGATIVE mg/dL (0.2-1.0)
[2017-06-14 13:14] LABS: URINE LEUK ESTERASE 2+ (NEGATIVE)
[2017-06-14 13:15] LABS: EPI CELLS RARE /HPF (FEW); URINE MUCUS RARE
--- NOTE | 2017-06-14 14:36 | DS ---
Physical Examination Vital Signs: Vital Signs Temperature 98.5 F 06/14/17 06:00 Pulse Rate 78 06/14/17 06:00 Respiratory Rate 20 06/14/17 06:00 Blood Pressure 111/60 06/14/17 06:00 O2 Sat by Pulse Oximetry (%) 98 06/14/17 09:00 Constitutional: Yes: No Distress Eyes: Yes: WNL HENT: Yes: WNL Neck: Yes: WNL Cardiovascular: Yes: WNL Respiratory: Yes: WNL Gastrointestinal: Yes: WNL Renal/: Yes: WNL Musculoskeletal: Yes: WNL Extremities: Yes: WNL Edema: No Peripheral Pulses WNL: Yes Integumentary: Yes: WNL Wound/Incision: Yes: Clean/Dry Neurological: Yes: WNL ...Motor Strength: WNL Psychiatric: Yes: WNL Labs: CBC, BMP 06/14/17 05:00 06/14/17 09:55 Discharge Summary Reason For Visit: ACUTE RENAL FAILURE Current Active Problems Acute renal failure (Acute) Asthma (Acute) HTN (hypertension) (Acute) Pulmonary embolism (Acute) S/P laparoscopic sleeve gastrectomy (Acute) Shortness of breath (Acute) Procedures: Principal: cta lungs Hospital Course: admitted for acute sob rule out pe, dyspnea cta lungs negative for pe, can dc home, arf resolved Condition: Stable - Instructions Diet, Activity, Other Instructions: stage 2 bariatric see your primary doctor in 2-3 days Referrals: Edith Durant [Primary Care Provider] - Disposition: HOME - Home Medications Comprehensive Discharge Medication List: Ambulatory Orders Montelukast Na [Singulair -] 10 mg PO HS #0 tablet 01/03/13 Valsartan [Diovan] 160 mg PO DAILY #0 tablet 01/03/13 Albuterol 0.083% Nebulizer Lorna [Ventolin 0.083%] 1 neb NEB Q4H PRN 06/11/17 Albuterol Sulfate Inhaler - [Ventolin Hfa Inhaler -] 1 - 2 inh PO Q4H PRN Famotidine [Pepcid] 20 mg PO DAILY 06/11/17 Oxycodone HCl/Acetaminophen [Percocet 5-325 mg Tablet] 1 tab PO Q6H PRN
[2017-06-14 14:56] VITALS: BP 150/90; PULSE 81; TEMP 98.3
[2017-06-15] MEDS ORDERED: ENOXAPARIN NA (PORCINE) 40 MG/0.4 ML DISP.SYRIN SQ SCH (10:00)
== END 2017-06-14 16:24 | disposition home or self-care (01) | DRG 683 ==
LOC: JER 00:45 → JERBED 11:35 → J4W 14:00
PROVIDERS: ADMIT Family Medicine; ATTEND Family Medicine
DX: N17.9 Acute kidney failure, unspecified (principal); Z68.41 Body mass index [BMI] 40.0-44.9, adult; I10 Essential (primary) hypertension; J45.909 Unspecified asthma, uncomplicated; E66.01 Morbid (severe) obesity due to excess calories; I44.0 Atrioventricular block, first degree; I45.81 Long QT syndrome; G47.33 Obstructive sleep apnea (adult) (pediatric); R00.0 Tachycardia, unspecified; J20.9 Acute bronchitis, unspecified; E86.0 Dehydration
CPT/HCPCS: 36415; 71046-TC-FY; 71275-TC; 76775-TC; 80048; 80053; 81003; 81015; 82436; 82550; 82553; 82570; 83690; 83735; 83880; 84133; 84300; 84484; 85025; 85027; 85379; 85610; 85730; 86850; 86900; 86901; 93005; 93010; 93971-TC; 94640; 99284-25; J1644; J7030

== ENCOUNTER 2017-07-27 17:17 | Inpatient (IN) | payer BC ==
[2017-07-27 17:20] VITALS: BMI 41.8
[2017-07-27] MEDS ORDERED: ACETAMINOPHEN 1000 MG/100 ML VIAL (NON FORMULARY) IVPB ONE (18:31)
--- NOTE | 2017-07-27 18:48 | PDOC ---
History of Present Illness - General Chief Complaint: Chest Pain Stated Complaint: CHEST PAIN Time Seen by Provider: 07/27/17 18:24 - History of Present Illness Initial Comments: 07/27/17 18:48 "Pt is a 62 yo F with a PMHx of Morbid Obesity, Asthma, COPD, DVT, and HTN who presents to the ED with chest pain since last night. Patient reports L sided reproducible constant chest pain. Denies SOB. Denies pleuritic or exertional chest pain. Patient endorses bilateral LE edema which has been worsening over the past week. Denies unilateral leg swelling. Patient denies nausea, vomiting, abdominal pain. Patient denies fever/chills, cough. Past History - Past Medical History Allergies/Adverse Reactions: Allergies Allergy/AdvReac Type Severity Reaction Status Date / Time erythromycin base Allergy Hives Verified 07/27/17 17:20 [Erythromycin Base] Home Medications: Ambulatory Orders Montelukast Na [Singulair -] 10 mg PO HS #0 tablet 01/03/13 Albuterol 0.083% Nebulizer Lorna [Ventolin 0.083% Nebulizer Soln -] 1 neb NEB Q4H PRN 06/11/17 Albuterol Sulfate Inhaler - [Ventolin HFA Inhaler -] 1 - 2 inh PO Q4H PRN Advair 500/50 1 puff IH BID 07/03/17 Anemia: No Asthma: Yes Cancer: No Cardiac Disorders: No CVA: No COPD: Yes CHF: No DVT: Yes Dementia: No Diabetes: No GI Disorders: No Disorders: No HTN: Yes Hypercholesterolemia: No Liver Disease: No Seizures: No Thyroid Disease: No - Surgical History Abdominal Surgery: Yes (GASTRIC SLEEVE 06/02/17) - Immunization History Immunization Up to Date: Yes - Suicide/Smoking/Psychosocial Hx Smoking Status: No Smoking History: Never smoked Have you smoked in the past 12 months: No Number of Cigarettes Smoked Daily: 0 If you are a former smoker, when did you quit?: 30 years ago Hx Alcohol Use: No Drug/Substance Use Hx: No Substance Use Type: None Hx Substance Use Treatment: No Cardiac Specific PMH - Complaint Specific PMHX Pacemaker: No Review of Systems - Review of Systems Comments:: 07/27/17 18:52 "GENERAL/CONSTITUTIONAL: No fever or chills. No weakness. HEAD, EYES, EARS, NOSE AND THROAT: No change in vision. No ear pain or discharge. No sore throat. CARDIOVASCULAR: + chest pain, no shortness of breath. RESPIRATORY: No cough, wheezing, or hemoptysis. GASTROINTESTINAL: No nausea, vomiting, diarrhea or constipation. GENITOURINARY: No dysuria, frequency, or change in urination. MUSCULOSKELETAL: No joint or muscle swelling or pain. No neck or back pain. SKIN: No rash NEUROLOGIC: No headache, vertigo, loss of consciousness, or change in strength/ sensation. ENDOCRINE: No increased thirst. No abnormal weight change. HEMATOLOGIC/LYMPHATIC: No anemia, easy bleeding, or history of blood clots. ALLERGIC/IMMUNOLOGIC: No hives or skin allergy. " *Physical Exam - Vital Signs Last Vital Signs Temp Pulse Resp BP Pulse Ox 98.4 F 78 20 150/99 97 07/28/17 20:00 07/28/17 20:00 07/28/17 20:00 07/28/17 20:00 07/28/17 17:25 - Physical Exam Comments: 07/27/17 18:53 "GENERAL: Awake, alert, and fully oriented, in no acute distress. HEAD: No signs of trauma EYES: PERRLA, EOMI, sclera anicteric, conjunctiva clear ENT: Auricles normal inspection, hearing grossly normal, nares patent, oropharynx clear without exudates. Moist mucosa NECK: Nontender, no stepoffs, Normal ROM, supple, no lymphadenopathy, JVD, or masses LUNGS: Breath sounds equal, clear to auscultation bilaterally. No wheezes, and no crackles HEART: Regular rate and rhythm, normal S1 and S2, no murmurs, rubs or gallops ABDOMEN: Soft, nontender, normoactive bowel sounds. No guarding, no rebound. No masses EXTREMITIES: Normal range of motion, no edema. No clubbing or cyanosis. No cords, erythema, or tenderness NEUROLOGICAL: Cranial nerves II through XII intact. 5/5 strength and sensation in all extremities, Normal speech, normal gait, normal cerebellar function SKIN: Warm, Dry, normal turgor, no rashes or lesions noted. " Heart Score/ECG Review - History History: Slightly suspicious - Electrocardiogram EKG: Non specific repolarization disturbance - Age Age: 45-65 - Risk Factors Risk Factors Heart Score: Yes Hx Hypertension, Yes Hx Obesity Based on the list above the patient has:: 1-2 risk factors - Troponin Troponin: </= normal limit - Score Heart Score - Total: 3 - ECG Impressions Comment:: 07/27/17 19:16 NSR, no HARSHAL/STDs, TWI in V1-V3 (seen on prior EKG), intervals wnl, axis wnl, rate 77 Moderate Sedation - Procedure Monitoring Vital Signs: Vital Signs Temp Pulse Resp BP Pulse Ox 98.4 F 78 20 150/99 97 07/28/17 20:00 07/28/17 20:00 07/28/17 20:00 07/28/17 20:00 07/28/17 17:25 ED Treatment Course - LABORATORY CBC & Chemistry Diagram: 07/28/17 09:30 07/28/17 09:30 - ADDITIONAL ORDERS Additional order review: Laboratory Results 07/27/17 19:30 Sodium 144 Potassium 3.2 L Chloride 108 H Carbon Dioxide 28 Anion Gap 8 BUN 9 Creatinine 0.9 Creat Clearance w eGFR > 60 Random Glucose 103 Calcium 9.1 Phosphorus Cancelled Magnesium Cancelled Total Bilirubin 0.7 AST 17 ALT 21 Alkaline Phosphatase 80 Total Protein 6.7 Albumin 3.6 07/28/17 07/27/17 09:30 19:30 RBC 4.53 4.69 MCV 86.7 86.7 MCHC 33.4 32.8 RDW 15.6 15.7 H MPV 9.0 9.0 Neutrophils % 72.8 74.1 Lymphocytes % 17.7 18.5 Monocytes % 7.2 6.1 Eosinophils % 2.0 D 0.8 Basophils % 0.3 0.5 - RADIOLOGY Radiology Studies Ordered: Category Date Time Status CHEST PA & LAT [RAD] Stat Radiology 07/27/17 18:31 Completed - Medications Given in the ED: ED Medications Discontinued Medications Generic Name Dose Route Start Last Admin Trade Name Freq PRN Reason Stop Dose Admin Acetaminophen 1,000 mg 07/27/17 18:31 07/27/17 20:21 Ofirmev Injection - IVPB 07/27/17 18:32 1,000 mg ONCE ONE Administration Ketorolac Tromethamine 15 mg 07/27/17 22:01 07/27/17 22:10 Toradol Injection - IVPUSH 07/27/17 22:02 15 mg ONCE ONE Administration Potassium Chloride 40 meq 07/28/17 02:45 07/28/17 15:50 K-Dur - PO 07/28/17 14:46 40 meq Q12H VINNIE Administration Medical Decision Making - Medical Decision Making 07/27/17 18:53 62 F with atypical midsternal chest pain x 1 day. Low suspicion for ACS as pain is not exertional. EKG unchanged. Should consider PE as pt has h/o DVT, though clinically no signs of it currently. Pt also with normal vitals and no pleuritic chest pain to suggest PE. - Labs, trop, ddimer - CXR - Tylenol *DC/Admit/Observation/Transfer Diagnosis at time of Disposition: Chest pain, Abdominal pain - Discharge Dispostion Condition at time of disposition: Stable - Referrals - Patient Instructions - Post Discharge Activity - Attestations Physician Attestion: 07/29/17 00:20 I, Dr. Ranjan Vega MD, attest that this document has been prepared under my direction and personally reviewed by me in its entirety. I further attest, that it accurately reflects all work, treatment, procedures and medical decision -making performed by me.
[2017-07-27 19:36] LABS: BASO % 0.5 % (0-2.0); EOS % 0.8 % (0-4.5); HEMATOCRIT 40.7 % (32.4-45.2); HEMOGLOBIN 13.3 GM/dL (10.7-15.3); LYMPH % 18.5 % (8-40); MCH 28.4 pg (25.7-33.7); MCHC 32.8 g/dl (32.0-36.0); MEAN CELL VOLUME 86.7 fl (80-96); MONO % 6.1 % (3.8-10.2); NEUT % 74.1 % (42.8-82.8); PLATELET COUNT 302 K/MM3 (134-434); RBC 4.69 M/mm3 (3.60-5.2); RDW 15.7 % (11.6-15.6); WHITE BLOOD COUNT 12.7 K/mm3 (4.0-10.0)
[2017-07-27 19:50] LABS: INR 1.1 (0.82-1.09); PROTHROMBIN TIME (PATIENT) 12.4 SEC (9.7-13.0)
[2017-07-27 19:53] LABS: ACTIVATED PTT 31.5 SECONDS (26.9-34.4)
[2017-07-27 20:00] LABS: ALBUMIN 3.6 g/dl (3.4-5.0); ALK PHOS 80 U/L (45-117); ANION GAP 8 (8-16); BILIRUBIN,TOTAL 0.7 mg/dL (0.2-1.0); BLOOD UREA NITROGEN 9 mg/dL (7-18); CALCIUM 9.1 mg/dL (8.5-10.1); CHLORIDE 108 mmol/L (98-107); CO2 28 mmol/L (21-32); CREATININE 0.9 mg/dL (0.55-1.02); GLUCOSE,RANDOM 103 mg/dL (74-106); POTASSIUM 3.2 mmol/L (3.5-5.1); SGOT/AST 17 U/L (15-37); SGPT/ALT 21 U/L (12-78); SODIUM 144 mmol/L (136-145); TOT PROT 6.7 g/dl (6.4-8.2)
[2017-07-27] MEDS ORDERED: ACETAMINOPHEN INJECTION 100 ML IVPB ONE ×2 (20:13→20:14)
[2017-07-27] MEDS ORDERED: KETOROLAC TROMETHAMINE 15 MG/ML VIAL IVPUSH ONE (22:01)
[2017-07-27] MEDS ORDERED: KETOROLAC TROMETHAMINE 30 MG/1 ML VIAL ONE (22:02)
--- NOTE | 2017-07-28 01:37 | PDOC ---
*Physical Exam - Vital Signs Last Vital Signs Temp Pulse Resp BP Pulse Ox 98.8 F 81 17 125/62 99 07/27/17 17:18 07/28/17 00:02 07/28/17 00:02 07/28/17 00:02 07/28/17 00:02 - Physical Exam Comments: 07/28/17 01:33 Care received from day attending at 1900 Briefly, patient presents emergency department with substernal reproducible chest pain. Patient was being worked up for acute coronary syndrome and PE. Troponin 2 is negative, d-dimer was positive and thus a CTA was done which was negative for pulmonary embolism, however revealed possible cholecystitis. On reevaluation, patient reports chest pain has gone from an 8 out of 10 to a 3 out of 10 after Toradol. Repeat exam is remarkable for right upper quadrant tenderness to palpation and a positive Clemens sign. At this time, a right upper quadrant ultrasound was ordered and the patient was admitted to the hospitalist for further disposition and management. Case discussed with Dr. Gray and Dr. Lopez, and accepted to med/surg observation. Case discussed in detail with admitting physician including history, physical exam and ancillary studies. Admitting physician has assumed care for the patient, will follow all pending diagnostics and will complete the evaluation and treatment. ED Treatment Course - LABORATORY CBC & Chemistry Diagram: 07/27/17 19:30 07/27/17 19:30 - ADDITIONAL ORDERS Additional order review: Laboratory Results 07/27/17 07/27/17 07/27/17 22:50 19:30 19:30 PT with INR 12.40 INR 1.10 PTT (Actin FS) 31.5 D D-Dimer Sodium Potassium Chloride Carbon Dioxide Anion Gap BUN Creatinine Creat Clearance w eGFR Random Glucose Calcium Total Bilirubin AST ALT Alkaline Phosphatase Creatine Kinase Troponin I < 0.02 B-Natriuretic Peptide 1061.26 H Total Protein Albumin 07/27/17 07/27/17 07/27/17 19:30 19:30 19:30 PT with INR INR PTT (Actin FS) D-Dimer 1671 H Sodium 144 Potassium 3.2 L Chloride 108 H Carbon Dioxide 28 Anion Gap 8 BUN 9 Creatinine 0.9 Creat Clearance w eGFR > 60 Random Glucose 103 Calcium 9.1 Total Bilirubin 0.7 AST 17 ALT 21 Alkaline Phosphatase 80 Creatine Kinase 129 Troponin I < 0.02 B-Natriuretic Peptide Total Protein 6.7 Albumin 3.6 07/27/17 19:30 RBC 4.69 MCV 86.7 MCHC 32.8 RDW 15.7 H MPV 9.0 Neutrophils % 74.1 Lymphocytes % 18.5 Monocytes % 6.1 Eosinophils % 0.8 Basophils % 0.5 - RADIOLOGY Radiology Studies Ordered: Category Date Time Status CHEST CTA [CT] Stat CT Scan 07/28/17 00:06 Taken - Medications Given in the ED: ED Medications Discontinued Medications Generic Name Dose Route Start Last Admin Trade Name Rafael PRN Reason Stop Dose Admin Acetaminophen 1,000 mg 07/27/17 18:31 07/27/17 20:21 Ofirmev Injection - IVPB 07/27/17 18:32 1,000 mg ONCE ONE Administration Ketorolac Tromethamine 15 mg 07/27/17 22:01 07/27/17 22:10 Toradol Injection - IVPUSH 07/27/17 22:02 15 mg ONCE ONE Administration *DC/Admit/Observation/Transfer Diagnosis at time of Disposition: Chest pain, Abdominal pain - Discharge Dispostion Condition at time of disposition: Stable Decision to Admit order: Yes - Referrals - Patient Instructions - Post Discharge Activity - Attestations Physician Attestion: 07/28/17 01:37 I, Dr. Pradip Richards MD, attest that this document has been prepared under my direction and personally reviewed by me in its entirety. I further attest, that it accurately reflects all work, treatment, procedures and medical decision -making performed by me.
--- NOTE | 2017-07-28 02:46 | PN ---
Teaching Attending Note Name of Resident: Elias Gray ATTENDING PHYSICIAN STATEMENT I saw and evaluated the patient. I reviewed the resident's note and discussed the case with the resident. I agree with the resident's findings and plan as documented. SUBJECTIVE: Patient is a 62 year old wpoman who presented with chief complaint of chest pain for 1 day. Elevated d-dimer prompted CTPA which ruled out Pulmonary embolism but showed suspected cholecystitis. Her chest pain has since resolved. She has history of Morbid Obesity, Asthma, left leg DVT, HTN and recent gastric sleeve surgery. OBJECTIVE: Alert and in no acute distress. Morbidly obese. HEENT: No Jaundice, eye redness or discharge, PERRLA, EOMI. External ears are normal and hearing is grossly intact. No nasal discharge. Neck: Supple, nontender. No palpable adenopathy or thyromegaly. No JVD Chest: Good effort. Clear to auscultation and percussion. Heart: Regular. No S3, rub or murmur Abdomen: Obese, diffuse upper abdominall tenderness. Not distended, soft, and no HSM. No rebound or guarding. Normoactive bowel sounds. Ext: Peripheral pulses intact. No leg edema. Skin: Warm and dry. No petechiae, rash or ecchymosis. Neuro: Alert. Oriented x3. CN 2-12 grossly intact. Sensation grossly intact in all four extremities and DTR are symmetric. Home Medications Medication Instructions Recorded Montelukast Na [Singulair -] 10 mg PO HS #0 tablet 01/03/13 Albuterol 0.083% Nebulizer Lorna 1 neb NEB Q4H PRN 06/11/17 [Ventolin 0.083% Nebulizer Soln -] Albuterol Sulfate Inhaler - 1 - 2 inh PO Q4H PRN 06/11/17 [Ventolin HFA Inhaler -] Advair 500/50 1 puff IH BID 07/03/17 Laboratory Results - last 24 hr 07/27/17 07/27/17 07/27/17 19:30 19:30 19:30 WBC 12.7 H D RBC 4.69 Hgb 13.3 Hct 40.7 MCV 86.7 MCH 28.4 MCHC 32.8 RDW 15.7 H Plt Count 302 D MPV 9.0 Neutrophils % 74.1 Lymphocytes % 18.5 Monocytes % 6.1 Eosinophils % 0.8 Basophils % 0.5 PT with INR INR PTT (Actin FS) D-Dimer Sodium 144 Potassium 3.2 L Chloride 108 H Carbon Dioxide 28 Anion Gap 8 BUN 9 Creatinine 0.9 Creat Clearance w eGFR > 60 Random Glucose 103 Calcium 9.1 Total Bilirubin 0.7 AST 17 ALT 21 Alkaline Phosphatase 80 Creatine Kinase 129 Troponin I < 0.02 B-Natriuretic Peptide Total Protein 6.7 Albumin 3.6 07/27/17 07/27/17 07/27/17 19:30 19:30 19:30 WBC RBC Hgb Hct MCV MCH MCHC RDW Plt Count MPV Neutrophils % Lymphocytes % Monocytes % Eosinophils % Basophils % PT with INR 12.40 INR 1.10 PTT (Actin FS) 31.5 D D-Dimer 1671 H Sodium Potassium Chloride Carbon Dioxide Anion Gap BUN Creatinine Creat Clearance w eGFR Random Glucose Calcium Total Bilirubin AST ALT Alkaline Phosphatase Creatine Kinase Troponin I B-Natriuretic Peptide 1061.26 H Total Protein Albumin 07/27/17 22:50 WBC RBC Hgb Hct MCV MCH MCHC RDW Plt Count MPV Neutrophils % Lymphocytes % Monocytes % Eosinophils % Basophils % PT with INR INR PTT (Actin FS) D-Dimer Sodium Potassium Chloride Carbon Dioxide Anion Gap BUN Creatinine Creat Clearance w eGFR Random Glucose Calcium Total Bilirubin AST ALT Alkaline Phosphatase Creatine Kinase Troponin I < 0.02 B-Natriuretic Peptide Total Protein Albumin ASSESSMENT AND PLAN: 1. Cholecystitis - Being admitted as an observation case for further workup to include HIDA scan and/or MRCP after GI evaluation. Will also consult surgery. AT this time there is no urgent need to start antibiotics. Will repeat CBC and if leukocytosis worsens, then may begin IV antibiotics. 2. Hypokalemia - Likely due to poor intake and continued losses. Will give oral KCL and check magnesium level. 3. Remote DVT - will find out from her PCP what drug she got and why is is not on anticoagulation for DVT, especially with her major risk factors for VTE. 4. Asthma - Stable. Continue her usual home regimen. 5. DVT prophylaxis - Heparin 5000u sq tid 6. Advance directives - Full code
[2017-07-28] MEDS ORDERED: ALBUTEROL SO4 18 GM HFA INHALER IH PRN (02:49)
--- NOTE | 2017-07-28 02:51 | HP ---
CHIEF COMPLAINT: chest pain PCP:Dr. Durant(covered by ) HISTORY OF PRESENT ILLNESS: 62 yr old woman with asthma, morbid obesity(s/p recent gastric sleeve 06/02/2017 ) presents with substernal chest pain since Friday night. She was sleeping and was woken up with continuous, nonradiating, nonpositional, without alleviating/exacerbating factors. described as "gnawing" pain, that continued throughout Friday morning. has chronic dry cough due to her asthma, no recent exacerbations. denies associated sob, n/v, abdominal pain, dysuria, fevers. ER course was notable for: (1) Chest CTA prelim report with concern for possible cholecytitis (2) (3) Recent Travel: none PAST MEDICAL HISTORY: asthma hx of right leg DVT 2.5 yrs ago, says she was treated and is not longer under treatment PAST SURGICAL HISTORY: gastric sleeve 06/02/2017 Social History: Smoking: denies Alcohol: denies Drugs: denies Family History: parents from [place]'s approx age 60 Allergies erythromycin base [Erythromycin Base] Allergy (Verified 07/27/17 17:20) Hives HOME MEDICATIONS: Home Medications Medication Instructions Recorded Montelukast Na [Singulair -] 10 mg PO HS #0 tablet 01/03/13 Albuterol 0.083% Nebulizer Lorna 1 neb NEB Q4H PRN 06/11/17 [Ventolin 0.083% Nebulizer Soln -] Albuterol Sulfate Inhaler - 1 - 2 inh PO Q4H PRN 06/11/17 [Ventolin HFA Inhaler -] Advair 500/50 1 puff IH BID 07/03/17 REVIEW OF SYSTEMS CONSTITUTIONAL: Absent: fever, chills, diaphoresis, generalized weakness, malaise, loss of appetite, weight change HEENT: Absent: rhinorrhea, nasal congestion, throat pain, throat swelling, difficulty swallowing, mouth swelling, visual changes CARDIOVASCULAR: Present:chest pain,peripheral edema Absent: syncope, palpitations, irregular heart rate, lightheadedness, RESPIRATORY: Present:cough, Absent: shortness of breath, dyspnea with exertion, orthopnea, wheezing, stridor , hemoptysis GASTROINTESTINAL: Absent: abdominal pain, abdominal distension, nausea, vomiting, diarrhea, constipation, melena, hematochezia GENITOURINARY: Absent: dysuria, frequency, urgency, hesitancy, hematuria, flank pain, genital pain MUSCULOSKELETAL: Absent: myalgia, arthralgia, joint swelling, back pain, neck pain SKIN: Absent: rash, itching, pallor HEMATOLOGIC/IMMUNOLOGIC: Absent: easy bleeding, easy bruising, lymphadenopathy, frequent infections ENDOCRINE: Absent: unexplained weight gain, unexplained weight loss, heat intolerance, cold intolerance NEUROLOGIC: Absent: headache, focal weakness or paresthesias, dizziness, unsteady gait, seizure, mental status changes, bladder or bowel incontinence PHYSICAL EXAMINATION Vital Signs - 24 hr 07/27/17 07/27/17 07/28/17 17:18 18:14 00:02 Temperature 98.8 F Pulse Rate 87 Pulse Rate [ 81 Apical] Respiratory 18 17 Rate Blood Pressure 146/78 Blood Pressure 125/62 [Left Arm] O2 Sat by Pulse 96 96 99 Oximetry (%) GENERAL: Awake, alert, and fully oriented, in no acute distress. HEAD: Normal with no signs of trauma. EYES: Pupils equal, round and reactive to light, extraocular movements intact, sclera anicteric, conjunctiva clear. No lid lag. EARS, NOSE, THROAT: oropharynx clear without exudates. Moist mucous membranes. NECK: Normal range of motion, supple without lymphadenopathy, JVD, or masses. LUNGS: Breath sounds equal, clear to auscultation bilaterally. No wheezes, and no crackles. No accessory muscle use. CHEST: TTP in right upper quadrant chest(2inchest below clavicle above breast), TTP over sternum HEART: distant heart sounds, RRR ABDOMEN: morbidly obese, Soft,+tender in RUQ +brandt's, ttp at incision sites, not distended, normoactive bowel sounds, no guarding, no rebound, no masses. well-healing lap scars. MUSCULOSKELETAL: No bony deformities or tenderness. No CVA tenderness. UPPER EXTREMITIES: 2+ radial pulses, warm, well-perfused. No cyanosis. No clubbing. No peripheral edema. LOWER EXTREMITIES: 2+ dp pulses, warm, well-perfused. No calf tenderness. + trace b/l edema NEUROLOGICAL: Cranial nerves II-XII intact. Normal speech. facial symmetry PSYCHIATRIC: Cooperative. Good eye contact. Appropriate mood and affect. SKIN: Warm, dry, normal turgor, no rashes or lesions noted, normal capillary refill. Laboratory Results - last 24 hr 07/27/17 07/27/17 07/27/17 19:30 19:30 19:30 WBC 12.7 H D RBC 4.69 Hgb 13.3 Hct 40.7 MCV 86.7 MCH 28.4 MCHC 32.8 RDW 15.7 H Plt Count 302 D MPV 9.0 Neutrophils % 74.1 Lymphocytes % 18.5 Monocytes % 6.1 Eosinophils % 0.8 Basophils % 0.5 PT with INR INR PTT (Actin FS) D-Dimer Sodium 144 Potassium 3.2 L Chloride 108 H Carbon Dioxide 28 Anion Gap 8 BUN 9 Creatinine 0.9 Creat Clearance w eGFR > 60 Random Glucose 103 Calcium 9.1 Total Bilirubin 0.7 AST 17 ALT 21 Alkaline Phosphatase 80 Creatine Kinase 129 Troponin I < 0.02 B-Natriuretic Peptide Total Protein 6.7 Albumin 3.6 07/27/17 07/27/17 07/27/17 19:30 19:30 19:30 WBC RBC Hgb Hct MCV MCH MCHC RDW Plt Count MPV Neutrophils % Lymphocytes % Monocytes % Eosinophils % Basophils % PT with INR 12.40 INR 1.10 PTT (Actin FS) 31.5 D D-Dimer 1671 H Sodium Potassium Chloride Carbon Dioxide Anion Gap BUN Creatinine Creat Clearance w eGFR Random Glucose Calcium Total Bilirubin AST ALT Alkaline Phosphatase Creatine Kinase Troponin I B-Natriuretic Peptide 1061.26 H Total Protein Albumin 07/27/17 22:50 WBC RBC Hgb Hct MCV MCH MCHC RDW Plt Count MPV Neutrophils % Lymphocytes % Monocytes % Eosinophils % Basophils % PT with INR INR PTT (Actin FS) D-Dimer Sodium Potassium Chloride Carbon Dioxide Anion Gap BUN Creatinine Creat Clearance w eGFR Random Glucose Calcium Total Bilirubin AST ALT Alkaline Phosphatase Creatine Kinase Troponin I < 0.02 B-Natriuretic Peptide Total Protein Albumin Active Medications Albuterol Sulfate (Ventolin Hfa Inhaler -) 1 - 2 puff IH Q4H PRN PRN Reason: SHORT OF BREATH/WHEEZING Heparin Sodium (Porcine) (Heparin -) 5,000 unit SQ TID [facility] Montelukast Sodium (Singulair -) 10 mg PO HS VINNIE Non-Formulary Medication (Advair 500/50 ) 1 puff IH BID [facility] Potassium Chloride (K-Dur -) 40 meq PO Q12H VINNIE Stop: 07/28/17 14:46 Last Admin: 07/28/17 03:27 Dose: 40 meq ASSESSMENT/PLAN: 62 yr old woman with asthma, morbid obesity with chest pain and on CTA was found to have possible cholecystitis. #chest pain, pt has been ruled out for PE - CTA was negative, unlikely ACS as trops x2 have been negative - reproducible chest pain, R>L, possible referred pain from gallbladder, vs musculoskeletal #Cholecystitis - no abnormal LFT's, however +RUQ tenderness - surgical and GI evaluation - await final read of CT scan, dedicated ultrasound for further evaluation( ordered in ED, pending official read) - keep npo incase of surgical intervention in the AM #Mild leucocytosis - pt afebrile, repeat in the AM, monitor off antibiotics for now, if increase may need coverage for cholecytitis #Asthma - controlled, continue singular and ventolin #Hypokalemia - replete po #hx of DVT - will need to confirm with PCP about use of anticoagulation for hx of DVT #DVt prophylaxis - heparin subq TID #Diet: NPO until further evaluation by surgery/GI Visit type - Emergency Visit Emergency Visit: Yes ED Registration Date: 07/28/17 Care time: The patient presented to the Emergency Department on the above date and was hospitalized for further evaluation of their emergent condition. - New Patient This patient is new to me today: Yes Date on this admission: 07/28/17 - Critical Care Critical Care patient: No Hospitalist Screening - Colonoscopy Questionnaire Colonoscopy Questionnaire: Colonoscopy Questionnaire - Patient: 50 - 75 years old and never had a screening colonoscopy: Unknown History of colon or rectal polyps, or CA: Unknown History of IBD, Crohn's disease or UC: Unknown History of abdominal radiation therapy as a child: Unknown - Relative: 1 with colon or rectal CA, or polyps at age 60 or younger: Unknown Colon or rectal CA diagnosed at age 45 or younger: Unknown Multiple relatives with colon or rectal CA: Unknown - Outcome: Screening Result: Negative Screen
[2017-07-28] MEDS: POTASSIUM CHLORIDE TABS 20 MEQ TABLET.ER (FP) PO SCH ×2 (03:27→15:50)
[2017-07-28] MEDS: HEPARIN NA (PORCINE) 5,000 UNITS/ML 1ML VIAL SQ SCH ×3 (06:43→21:30)
[2017-07-28] MEDS ORDERED: HEPARIN NA (PORCINE) 5,000 UNITS/ML 1ML VIAL ONE ×2 (06:52→07:27)
[2017-07-28] MEDS ORDERED: POTASSIUM CHLORIDE TABS 20 MEQ TABLET.ER (FP) PO ONE (06:52)
[2017-07-28 08:24] LABS: MAGNESIUM 2.1 mg/dL (1.8-2.4); PHOSPHOROUS 4.4 mg/dL (2.5-4.9)
--- NOTE | 2017-07-28 09:27 | PN ---
Progress Note, Physician - Current Medication List Current Medications: Active Medications Albuterol Sulfate (Ventolin Hfa Inhaler -) 1 - 2 puff IH Q4H PRN PRN Reason: SHORT OF BREATH/WHEEZING Budesonide/Formoterol Fumarate (Symbicort 160/4.5mcg -) 2 puff IH BID VNINIE Heparin Sodium (Porcine) (Heparin -) 5,000 unit SQ TID VINNIE Last Admin: 07/28/17 06:43 Dose: 5,000 unit Montelukast Sodium (Singulair -) 10 mg PO HS VINNIE Potassium Chloride (K-Dur -) 40 meq PO Q12H VINNIE Stop: 07/28/17 14:46 Last Admin: 07/28/17 03:27 Dose: 40 meq - Objective Vital Signs: Vital Signs Temperature 98.8 F 07/27/17 17:18 Pulse Rate 85 07/28/17 07:14 Respiratory Rate 18 07/28/17 07:14 Blood Pressure 116/73 07/28/17 07:14 O2 Sat by Pulse Oximetry (%) 97 07/28/17 07:14 Labs: CBC, BMP 07/27/17 19:30 07/27/17 19:30 INR, PTT INR 1.10 (0.82-1.09) 07/27/17 19:30 Problem List - Problems (1) Abdominal pain Assessment/Plan: -maybe due to Cholecystitis - no abnormal LFT's, however +RUQ tenderness - surgical and GI evaluation - await final read of CT scan, -dedicated ultrasound -cholecystitis - keep npo -leucocytosis - pt afebrile, repeat Code(s): R10.9 - UNSPECIFIED ABDOMINAL PAIN (2) Benign essential hypertension Assessment/Plan: controlled Code(s): I10 - ESSENTIAL (PRIMARY) HYPERTENSION (3) Morbid obesity Code(s): E66.01 - MORBID (SEVERE) OBESITY DUE TO EXCESS CALORIES (4) Atypical chest pain Assessment/Plan: #chest pain, pt has been ruled out for PE - CTA was negative, unlikely ACS as trops x2 have been negative - possible referred pain from gallbladder, vs musculoskeletal -cardio consult Code(s): R07.89 - OTHER CHEST PAIN (5) S/P laparoscopic sleeve gastrectomy Assessment/Plan: -will get surgical follow up Code(s): Z98.84 - BARIATRIC SURGERY STATUS
[2017-07-28] MEDS: BUDESONIDE/FORMETEROL FUMARATE 160/4.5 mcg INHALER IH SCH ×2 (10:10→22:25)
[2017-07-28 10:13] LABS: BASO % 0.3 % (0-2.0); HEMATOCRIT 39.3 % (32.4-45.2); HEMOGLOBIN 13.1 GM/dL (10.7-15.3); LYMPH % 17.7 % (8-40); MCHC 33.4 g/dl (32.0-36.0); MEAN CELL VOLUME 86.7 fl (80-96); MONO % 7.2 % (3.8-10.2); NEUT % 72.8 % (42.8-82.8); PLATELET COUNT 276 K/MM3 (134-434); RBC 4.53 M/mm3 (3.60-5.2); RDW 15.6 % (11.6-15.6); WHITE BLOOD COUNT 11.1 K/mm3 (4.0-10.0)
[2017-07-28 10:33] LABS: ALBUMIN 3.3 g/dl (3.4-5.0); ANION GAP 7 (8-16); BLOOD UREA NITROGEN 8 mg/dL (7-18); CALCIUM 8.7 mg/dL (8.5-10.1); CHLORIDE 106 mmol/L (98-107); CO2 28 mmol/L (21-32); CREATININE 0.9 mg/dL (0.55-1.02); GLUCOSE,RANDOM 112 mg/dL (74-106); POTASSIUM 3.5 mmol/L (3.5-5.1); SGOT/AST 18 U/L (15-37); SGPT/ALT 19 U/L (12-78); SODIUM 141 mmol/L (136-145)
[2017-07-28 10:34] LABS: ALK PHOS 87 U/L (45-117); BILIRUBIN,TOTAL 1.4 mg/dL (0.2-1.0); TOT PROT 6.5 g/dl (6.4-8.2)
--- NOTE | 2017-07-28 11:25 | CON.CARD ---
Consult Consult Specialty:: Cardiology Referred by:: Wil Reason for Consultation:: chest pain - History of Present Illness Chief Complaint: chest pain History of Present Illness: 62 year old woman h/o asthma, morbid obesity(s/p recent gastric sleeve 06/02/2017 ) admited with atypical chest pain. Pt seen and examined in the ER in [facility]. pt states the pain began friday night and persisted until friday night when it was relieved by medication given in the ER. States that she has had some issues with diet and fluid intake since her gastric sleeve but has been overall feeling well. In ER noted to have possible cholecystitis. Denies having had chest pain previously. denies an associated factors. 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 History of Recent Travel: No Home Medications - Allergies Allergies/Adverse Reactions: Allergies Allergy/AdvReac Type Severity Reaction Status Date / Time erythromycin base Allergy Hives Verified 07/27/17 17:20 [Erythromycin Base] - Home Medications Home Medications: Ambulatory Orders Montelukast Na [Singulair -] 10 mg PO HS #0 tablet 01/03/13 Albuterol 0.083% Nebulizer Lorna [Ventolin 0.083% Nebulizer Soln -] 1 neb NEB Q4H PRN 06/11/17 Albuterol Sulfate Inhaler - [Ventolin HFA Inhaler -] 1 - 2 inh PO Q4H PRN Advair 500/50 1 puff IH BID 07/03/17 Family Disease History - Family Disease History Family Disease History: Diabetes: Father (MD), Mother (MD), Heart Disease: Father, Mother, Respiratory: Brother, Sister Review of Systems - Review of Systems Constitutional: denies: No Symptoms, Chills, Diaphoresis, Fever, Lethargy, Loss of Appetite, Malaise, Night Sweats, Unintentional Wgt. Loss, Weakness, Other Eyes: denies: No Symptoms, Blind Spots, Blurred Vision, Double Vision, Eye Pain , Floaters, Photophobia, Recent Change in Vision, Other HENT: denies: No Symptoms, Difficult Swallowing, Ear Discharge, Ear Pain, Epistaxis, Gingival Bleeding, Hearing Loss, Mouth Swelling, Nasal Congestion, Ocular Prosthesis, Throat Pain, Toothache, Ringing in Ears, Other Neck: denies: No Symptoms, Decreased ROM, Lumps, Pain on Movement, Stiffness, Swollen Glands, Tenderness, Other Cardiovascular: reports: Chest Pain. denies: No Symptoms, Edema, Palpitations, Shortness of Breath, Other Respiratory: denies: No Symptoms, Cough, Exercise Intolerance, Hemoptysis, Orthopnea, PND, Snoring, SOB, SOB on Exertion, Wheezing, Other Gastrointestinal: reports: Abdominal Pain, Nausea. denies: No Symptoms, Bloating, Constipation, Diarrhea, Dysphagia, Indigestion, Melena, Rectal Bleeding, Vomiting, Vomiting Blood, Other Genitourinary: denies: No Symptoms, Burning, Discharge, Dysuria, Flank Pain, Frequency, Hematuria, Incontinence, Lesions, Menses, Pain, Testicular Mass, Testicular Pain, Testicular Swelling, Urgency, Vaginal Bleeding, Other Breasts: denies: No Symptoms Reported, See HPI, Breast Implants, Discharge from Nipple, Lumps, Pain, Skin Changes, Other Musculoskeletal: denies: No Symptoms, Back Pain, Crepitus, Decreased ROM, Extremity Pain, Joint Pain, Joint Swelling, Muscle Pain, Muscle Cramps, Muscle Weakness, Other Integumentary: denies: No Symptoms, Blister, Bruising, Change in Color, Eczema, Erythema, Incision, Lesions, Lump, Pallor, Pruritis, Rash, Wound, Other Neurological: denies: No Symptoms, Change in LOC, Change in Speech, Confusion, Dizziness, Headache, Incoordination, Numbness, Parasthesia, Pre-Existing Deficit , Seizure, Syncope, Tremors, Unsteady Gait, Weakness, Other Endocrine: denies: No Symptoms, Excessive Sweating, Flushing, Increased Hunger, Increased Thirst, Intolerance to Cold, Intolerance to Heat, Unexplained Weight Gain, Unexplained Weight Loss, Other Hematology/Lymphatic: denies: No Symptoms, Easily Bruised, Excessive Bleeding, Swollen Glands, Other Psychiatric: denies: No Symptoms, Altered Sleep Pattern, Anxiety, Depression, Hallucinations, Panic, Paranoia, Suicidal, Other Vital Signs: Vital Signs Temperature 98.8 F 07/27/17 17:18 Pulse Rate 85 07/28/17 07:14 Respiratory Rate 18 07/28/17 07:14 Blood Pressure 116/73 07/28/17 07:14 O2 Sat by Pulse Oximetry (%) 97 07/28/17 07:14 Constitutional: Yes: No Distress, Calm, Obese Eyes: Yes: Conjunctiva Clear, EOM Intact, PERRL HENT: Yes: WNL, Atraumatic, Normocephalic Neck: Yes: WNL, Supple, Trachea Midline Respiratory: Yes: Regular, Diminished. No: Rales, Rhonchi, Wheezes Gastrointestinal: Yes: Normal Bowel Sounds, Soft, Tenderness. No: Distention Renal/: Yes: WNL Cardiovascular: Yes: Regular Rate and Rhythm. No: Bradycardia, Tachycardia, Pulse Irregular, Gallop, Rub, Varicosities JVD: No Carotid Bruit: No PMI: Non-Displaced Heart Sounds: Yes: S1, S2. No: Split S2, S3, S4, Clicks, Gallop, Rub, Bruit Murmur: No: Systolic Murmur, Diastolic Murmur Musculoskeletal: Yes: WNL Extremities: Yes: WNL Edema: No Peripheral Pulses WNL: Yes Peripheral Pulses: 2+ Left Doralis Pedis, 2+ Right Dorsalis Pedis Integumentary: Yes: WNL Neurological: Yes: Alert, Oriented Psychiatric: Yes: Alert, Oriented - Other Data Labs, Other Data: CBC, BMP 07/28/17 09:30 07/28/17 09:30 INR, PTT INR 1.10 (0.82-1.09) 07/27/17 19:30 Troponin, BNP 07/27/17 07/27/17 07/27/17 19:30 19:30 22:50 Troponin I < 0.02 < 0.02 B-Natriuretic Peptide 1061.26 H Troponin, BNP 07/27/17 07/27/17 07/27/17 19:30 19:30 22:50 Troponin I < 0.02 < 0.02 B-Natriuretic Peptide 1061.26 H EKG-NSR 1st deg avb, St depressions possible ant ischemia no sig change from past ekgs Echo: Pending Imaging - Results Chest X-ray: Report Reviewed, Image Reviewed EKG: Report Reviewed, Image Reviewed Other: Report Reviewed, Image Reviewed Assessment/Plan 62 year old woman h/o asthma, morbid obesity(s/p recent gastric sleeve 06/02/2017 ) admited with atypical chest pain. Pt seen and examined in the ER in [facility]. pt states the pain began friday night and persisted until friday night when it was relieved by medication given in the ER. States that she has had some issues with diet and fluid intake since her gastric sleeve but has been overall feeling well. In ER noted to have possible cholecystitis. Chest pain-atypical, unlikely cardiac in origin -noted to have symptomatic cholelithiasis -cardiac enzymes wnl, add on another set to this am labs -ekg abnormal but no sig changes compared to prior ekgs -can check echo to evaluate for structural abnl -ischemic work up can be performed as outpatient -can DC tele -If echo shows no sig abnl pt can be discharged from a cardiac standpoint with a plan for outpatient f/up Please call with any additional questions.
--- NOTE | 2017-07-28 12:24 | CON.GI ---
Consult Consult Specialty:: GI Reason for Consultation:: RUQ pain - History of Present Illness History of Present Illness: 62 yr old woman with asthma, morbid obesity (s/p recent gastric sleeve 06/02/2017 ). Lost 40 lb since the surgery. Presents with substernal chest pain since Friday night. Cardiac etiologies are being ruled out. CT chest noted "choelcystitis" and RUQ US confirmed it. Normal liver chemistry, no leukocytosis. No dysphagia, odynophagia, jaundice, fever, or chills. Clemens's positive on exam. 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 History of Recent Travel: No Home Medications - Allergies Allergies/Adverse Reactions: Allergies Allergy/AdvReac Type Severity Reaction Status Date / Time erythromycin base Allergy Hives Verified 07/27/17 17:20 [Erythromycin Base] - Home Medications Home Medications: Ambulatory Orders Montelukast Na [Singulair -] 10 mg PO HS #0 tablet 01/03/13 Albuterol 0.083% Nebulizer Lorna [Ventolin 0.083% Nebulizer Soln -] 1 neb NEB Q4H PRN 06/11/17 Albuterol Sulfate Inhaler - [Ventolin HFA Inhaler -] 1 - 2 inh PO Q4H PRN Advair 500/50 1 puff IH BID 07/03/17 Family Disease History - Family Disease History Family Disease History: Diabetes: Father ([place]), Mother ([place]), Heart Disease: Father, Mother, Respiratory: Brother, Sister Review of Systems Findings/Remarks: as per HPI, H&P Physical Exam-GI Vital Signs: Vital Signs Temperature 98.8 F 07/27/17 17:18 Pulse Rate 85 07/28/17 07:14 Respiratory Rate 18 07/28/17 07:14 Blood Pressure 116/73 07/28/17 07:14 O2 Sat by Pulse Oximetry (%) 97 07/28/17 07:14 Constitutional: Yes: No Distress, Calm, Obese Eyes: Yes: Conjunctiva Clear HENT: Yes: Atraumatic Neck: Yes: Supple Cardiovascular: Yes: Regular Rate and Rhythm Respiratory: Yes: Regular Gastrointestinal Inspection: No: Ascites, Distention ...Auscultate: Yes: Normoactive Bowel Sounds ...Palpate: Yes: Guarding (RUQ), Soft, Tenderness (RUQ). No: Firm/Rigid Neurological: Yes: Alert, Oriented Labs: CBC, BMP 07/28/17 09:30 07/28/17 09:30 INR, PTT INR 1.10 (0.82-1.09) 07/27/17 19:30 Laboratory Last Values WBC 11.1 K/mm3 (4.0-10.0) H 07/28/17 09:30 RBC 4.53 M/mm3 (3.60-5.2) 07/28/17 09:30 Hgb 13.1 GM/dL (10.7-15.3) 07/28/17 09:30 Hct 39.3 % (32.4-45.2) 07/28/17 09:30 MCV 86.7 fl (80-96) 07/28/17 09:30 MCH 29.0 pg (25.7-33.7) 07/28/17 09:30 MCHC 33.4 g/dl (32.0-36.0) 07/28/17 09:30 RDW 15.6 % (11.6-15.6) 07/28/17 09:30 Plt Count 276 K/MM3 (134-434) 07/28/17 09:30 MPV 9.0 fl (7.5-11.1) 07/28/17 09:30 Neutrophils % 72.8 % (42.8-82.8) 07/28/17 09:30 Lymphocytes % 17.7 % (8-40) 07/28/17 09:30 Monocytes % 7.2 % (3.8-10.2) 07/28/17 09:30 Eosinophils % 2.0 % (0-4.5) D 07/28/17 09:30 Basophils % 0.3 % (0-2.0) 07/28/17 09:30 PT with INR 12.40 SEC (9.7-13.0) 07/27/17 19:30 INR 1.10 (0.82-1.09) 07/27/17 19:30 PTT (Actin FS) 31.5 SECONDS (26.9-34.4) D 07/27/17 19:30 D-Dimer 1671 ng/ml (0-500) H 07/27/17 19:30 Sodium 141 mmol/L (136-145) 07/28/17 09:30 Potassium 3.5 mmol/L (3.5-5.1) 07/28/17 09:30 Chloride 106 mmol/L (98-107) 07/28/17 09:30 Carbon Dioxide 28 mmol/L (21-32) 07/28/17 09:30 Anion Gap 7 (8-16) L 07/28/17 09:30 BUN 8 mg/dL (7-18) 07/28/17 09:30 Creatinine 0.9 mg/dL (0.55-1.02) 07/28/17 09:30 Creat Clearance w eGFR > 60 (>60) 07/28/17 09:30 Random Glucose 112 mg/dL (74-106) H 07/28/17 09:30 Hemoglobin A1c % 5.8 % (4.8-6.0) 07/28/17 09:30 Calcium 8.7 mg/dL (8.5-10.1) 07/28/17 09:30 Phosphorus 4.4 mg/dL (2.5-4.9) 07/28/17 07:10 Magnesium 2.1 mg/dL (1.8-2.4) 07/28/17 07:10 Total Bilirubin 1.4 mg/dL (0.2-1.0) H D 07/28/17 09:30 AST 18 U/L (15-37) 07/28/17 09:30 ALT 19 U/L (12-78) 07/28/17 09:30 Alkaline Phosphatase 87 U/L (45-117) 07/28/17 09:30 Creatine Kinase 129 IU/L (26-192) 07/27/17 19:30 Troponin I < 0.02 ng/ml (0.00-0.05) 07/27/17 22:50 B-Natriuretic Peptide 1061.26 pg/ml (5-125) H 07/27/17 19:30 Total Protein 6.5 g/dl (6.4-8.2) 07/28/17 09:30 Albumin 3.3 g/dl (3.4-5.0) L 07/28/17 09:30 Blood Type O POSITIVE 07/28/17 07:10 Antibody Screen Negative 07/28/17 07:10 Imaging - Results Cat Scan: Report Reviewed Ultrasound: Report Reviewed Problem List - Problems (1) Cholelithiasis Code(s): K80.20 - CALCULUS OF GALLBLADDER W/O CHOLECYSTITIS W/O OBSTRUCTION Assessment/Plan Cholecystitis, symptomatic cholelithiasis in settings of rapid weight loss. No obvious cholestatsis, or choledocolithiasis. Sx evalaution, NPO, IVF, Zosyn, antiemetics PRN, Close monitoring. Discussed with the patient
--- NOTE | 2017-07-28 14:45 | CONSULT ---
Addendum entered and electronically signed by Alisa Niño, RESIDENT 15:28: WBC 11.1 today, down from 12.7 yesterday pt remains afebrile f/u blood cultures Original Note: Consultation: REQUESTING PROVIDER: CONSULT REQUEST: We have been asked to medically evaluate this patient for cholecystitis. HISTORY OF PRESENT ILLNESS: 62F with PMH of asthma and morbid obesity (s/p gastric sleeve 05/2017), presented to hospital with atypical chest pain, found to have cholecystitis. Pt seen by Cardiology (Dr. Roberts), trops (-) x 2. Chest pain resolved. Pt reports 30-40 pound wt loss since surgery. Pt reports RUQ pain only with deep palpation and depending on her position. Pt endorses chronic non-productive cough 2/2 asthma. Pt denies chest pain, sob, fever, chills. REVIEW OF SYSTEMS: CONSTITUTIONAL: significant wt loss Absent: fever, chills, diaphoresis HEENT: Absent: rhinorrhea, nasal congestion, ear pain, eye pain, visual changes CARDIOVASCULAR: Absent: chest pain, palpitations, irregular heart rate RESPIRATORY: chronic non-productive cough Absent: shortness of breath, wheezing, stridor GASTROINTESTINAL: Absent: abdominal pain, abdominal distension, nausea, vomiting, diarrhea, constipation GENITOURINARY: Absent: dysuria, frequency, hematuria MUSCULOSKELETAL: Absent: myalgia, arthralgia, joint swelling, back pain, neck pain SKIN: Absent: rash, itching, pallor NEUROLOGIC: Absent: headache, focal weakness or paresthesias, dizziness PSYCHIATRIC: Absent: anxiety, depression PHYSICAL EXAMINATION Vital Signs - 24 hr 07/27/17 07/27/17 07/28/17 17:18 18:14 00:02 Temperature 98.8 F Pulse Rate 87 Pulse Rate [ 81 Apical] Respiratory 18 17 Rate Blood Pressure 146/78 Blood Pressure 125/62 [Left Arm] O2 Sat by Pulse 96 96 99 Oximetry (%) 07/28/17 07/28/17 07:14 13:30 Temperature 98.3 F Pulse Rate Pulse Rate [ 85 81 Apical] Respiratory 18 18 Rate Blood Pressure Blood Pressure 116/73 126/73 [Left Arm] O2 Sat by Pulse 97 97 Oximetry (%) GENERAL: Awake, alert, and fully oriented, in no acute distress. LUNGS: Breath sounds equal, clear to auscultation bilaterally. No wheezes, and no crackles. No accessory muscle use. HEART: Regular rate and rhythm, normal S1 and S2 without murmur, rub or gallop. ABDOMEN: Soft, nontender, not distended, no guarding, no rebound, no masses, (+ ) Clemens's sign. LOWER EXTREMITIES: Warm, well-perfused. No calf tenderness. No peripheral edema. PSYCHIATRIC: Cooperative. Good eye contact. Appropriate mood and affect. Laboratory Results - last 24 hr 07/27/17 07/27/17 07/27/17 19:30 19:30 19:30 WBC 12.7 H D RBC 4.69 Hgb 13.3 Hct 40.7 MCV 86.7 MCH 28.4 MCHC 32.8 RDW 15.7 H Plt Count 302 D MPV 9.0 Neutrophils % 74.1 Lymphocytes % 18.5 Monocytes % 6.1 Eosinophils % 0.8 Basophils % 0.5 PT with INR INR PTT (Actin FS) D-Dimer Sodium 144 Potassium 3.2 L Chloride 108 H Carbon Dioxide 28 Anion Gap 8 BUN 9 Creatinine 0.9 Creat Clearance w eGFR > 60 Random Glucose 103 Hemoglobin A1c % Calcium 9.1 Phosphorus Magnesium Total Bilirubin 0.7 AST 17 ALT 21 Alkaline Phosphatase 80 Creatine Kinase 129 Troponin I < 0.02 B-Natriuretic Peptide Total Protein 6.7 Albumin 3.6 Blood Type Antibody Screen 07/27/17 07/27/17 07/27/17 19:30 19:30 19:30 WBC RBC Hgb Hct MCV MCH MCHC RDW Plt Count MPV Neutrophils % Lymphocytes % Monocytes % Eosinophils % Basophils % PT with INR 12.40 INR 1.10 PTT (Actin FS) 31.5 D D-Dimer 1671 H Sodium Potassium Chloride Carbon Dioxide Anion Gap BUN Creatinine Creat Clearance w eGFR Random Glucose Hemoglobin A1c % Calcium Phosphorus Magnesium Total Bilirubin AST ALT Alkaline Phosphatase Creatine Kinase Troponin I B-Natriuretic Peptide 1061.26 H Total Protein Albumin Blood Type Antibody Screen 07/27/17 07/28/17 07/28/17 22:50 07:10 07:10 WBC RBC Hgb Hct MCV MCH MCHC RDW Plt Count MPV Neutrophils % Lymphocytes % Monocytes % Eosinophils % Basophils % PT with INR INR PTT (Actin FS) D-Dimer Sodium Potassium Chloride Carbon Dioxide Anion Gap BUN Creatinine Creat Clearance w eGFR Random Glucose Hemoglobin A1c % Calcium Phosphorus 4.4 Magnesium 2.1 Total Bilirubin AST ALT Alkaline Phosphatase Creatine Kinase Troponin I < 0.02 B-Natriuretic Peptide Total Protein Albumin Blood Type O POSITIVE Antibody Screen Negative 07/28/17 07/28/17 07/28/17 09:30 09:30 09:30 WBC 11.1 H RBC 4.53 Hgb 13.1 Hct 39.3 MCV 86.7 MCH 29.0 MCHC 33.4 RDW 15.6 Plt Count 276 MPV 9.0 Neutrophils % 72.8 Lymphocytes % 17.7 Monocytes % 7.2 Eosinophils % 2.0 D Basophils % 0.3 PT with INR INR PTT (Actin FS) D-Dimer Sodium 141 Potassium 3.5 Chloride 106 Carbon Dioxide 28 Anion Gap 7 L BUN 8 Creatinine 0.9 Creat Clearance w eGFR > 60 Random Glucose 112 H Hemoglobin A1c % 5.8 Calcium 8.7 Phosphorus Magnesium Total Bilirubin 1.4 H D AST 18 ALT 19 Alkaline Phosphatase 87 Creatine Kinase Troponin I B-Natriuretic Peptide Total Protein 6.5 Albumin 3.3 L Blood Type Antibody Screen Active Medications Generic Name Dose Route Start Last Admin Trade Name Freq PRN Reason Stop Dose Admin Albuterol Sulfate 1 - 2 puff 07/28/17 02:49 07/28/17 10:09 Ventolin Hfa Inhaler - IH 2 puff Q4H PRN Administration SHORT OF BREATH/WHEEZING Budesonide/Formoterol Fumarate 2 puff 07/28/17 10:00 07/28/17 10:10 Symbicort 160/4.5mcg - IH Not Given BID VINNIE Heparin Sodium (Porcine) 5,000 unit 07/28/17 06:00 07/28/17 06:43 Heparin - SQ 5,000 unit TID VINNIE Administration Montelukast Sodium 10 mg 07/28/17 22:00 Singulair - PO HS VINNIE Potassium Chloride 40 meq 07/28/17 02:45 07/28/17 03:27 K-Dur - PO 07/28/17 14:46 40 meq Q12H VINNIE Administration ASSESSMENT/PLAN: 62F with PMH of asthma and morbid obesity (s/p gastric sleeve 05/2017), presented to hospital with atypical chest pain, found to have cholecystitis. # cholecystitis - IV Zosyn - Surgery Consult (Dr. Farrell) - will hold off on surgery for now as gastric sleeve procedure was so recent. # asthma - continue home meds per primary team Dispo: We will continue to follow the patient. Thank you for this consultative opportunity. Visit type - Emergency Visit Emergency Visit: Yes ED Registration Date: 07/28/17 Care time: The patient presented to the Emergency Department on the above date and was hospitalized for further evaluation of their emergent condition. - New Patient This patient is new to me today: Yes Date on this admission: 07/28/17 - Critical Care Critical Care patient: No
--- NOTE | 2017-07-28 15:35 | CONSULT ---
Consult - text type - Consultation Consultation Note: Asked to see this 62 yo female c/o of chest/epigastric pain. Pt is 7 weeks S/P Sleeve Gastrectomy and c/o abdominal/chest pain yesterday. Er work-up showed no cardiac etiology and CT scan of chest R/O PE. CT scan showed biliary calculus and ultrasound showed thickened gallbladder wall with calculus. Pt presently stated pain is relieved, is hungry. No N/V complaints WBC-11.1 (decreased from 12.7) H/H-13/39 LFT- all normal except Jos at 1.4 (increased from 0.7) Cardiology, GI, notes acknowledged P/E- Gen- Awake, alert, no distress with decreased pain Abd- well- healed incisions slight tenderness over Clemens's no rebound, no guarding I- Acute Cholecystitis Rec- Agree with GI recommendation of IV antibiotics NPO except sips of water, advance to low-fat, soft 07/29 if WBC down and asymptomatic Asthma meds as indicated repeat labs, WBC, LFT in AM
[2017-07-28] MEDS ORDERED: DEXTROSE 5%-WATER 100 ML IVPB ONE ×2 (15:44→20:29)
[2017-07-28] MEDS ORDERED: PIPERACILLIN/TAZOBACTAM 4.5 GM VIAL IVPB ONE ×2 (15:44→20:29)
[2017-07-28] MEDS: PIPERACILLIN/TAZOB 4.5 GM 4.5 GM in DEXTROSE 5%-WATER 100 ML IVPB SCH ×2 (15:50→20:50)
[2017-07-28] MEDS ORDERED: PIPERACILLIN/TAZOB 4.5 GM 4.5 GM in DEXTROSE 5%-WATER 100 ML IVPB ONE (16:00)
[2017-07-28] MEDS: ALBUTEROL SO4 0.083% IH SOL 2.5 MG/3 ML VIAL.NEB. NEB PRN (21:28)
[2017-07-28] MEDS: MONTELUKAST NA 10 MG TABLET PO SCH (21:30)
[2017-07-28] MEDS ORDERED: PT OWN MED DRAWER 7, Y5N ONE (23:34)
--- NOTE | 2017-07-28 23:50 | EKG ---
Test Reason : Blood Pressure : / mmHG Vent. Rate : 077 BPM Atrial Rate : 077 BPM P-R Int : 226 ms QRS Dur : 092 ms QT Int : 422 ms P-R-T Axes : 068 -12 002 degrees QTc Int : 477 ms SINUS RHYTHM WITH 1ST DEGREE A-V BLOCK ABNORMAL ECG WHEN COMPARED WITH ECG OF 11-JUN-2017 03:08, T WAVE VARIATION Confirmed by STEVAN GARZA MD ([id number]) on 07/28/2017 11:50:20 PM Referred By: Confirmed By:STEVAN GARZA MD
[2017-07-29] MEDS ORDERED: PIPERACILLIN/TAZOBACTAM 4.5 GM VIAL IVPB ONE ×3 (00:59→17:01)
[2017-07-29] MEDS ORDERED: PIPERACILLIN/TAZOB 4.5 GM 4.5 GM in DEXTROSE 5%-WATER 100 ML IVPB ONE (01:00)
[2017-07-29] MEDS ORDERED: DEXTROSE 5%-WATER 100 ML IVPB ONE ×3 (01:00→17:01)
[2017-07-29] MEDS: ALBUTEROL SO4 0.083% IH SOL 2.5 MG/3 ML VIAL.NEB. NEB PRN ×4 (02:00→21:41)
[2017-07-29] MEDS: PIPERACILLIN/TAZOB 4.5 GM 4.5 GM in DEXTROSE 5%-WATER 100 ML IVPB SCH ×3 (02:37→17:08)
[2017-07-29] MEDS: HEPARIN NA (PORCINE) 5,000 UNITS/ML 1ML VIAL SQ SCH ×3 (06:30→22:51)
[2017-07-29] MEDS ORDERED: PT OWN MED DRAWER 7, Y5N ONE ×3 (08:54→22:47)
[2017-07-29] MEDS: BUDESONIDE/FORMETEROL FUMARATE 160/4.5 mcg INHALER IH SCH ×2 (09:42→22:51)
[2017-07-29] MEDS ORDERED: PIPERACILLIN/TAZOB 4.5 GM 4.5 GM in DEXTROSE 5%-WATER 100 ML IVPB SCH (10:00)
[2017-07-29 11:16] LABS: BASO % 0.4 % (0-2.0); EOS % 2.5 % (0-4.5); HEMATOCRIT 38.8 % (32.4-45.2); HEMOGLOBIN 12.9 GM/dL (10.7-15.3); MCH 28.8 pg (25.7-33.7); MCHC 33.2 g/dl (32.0-36.0); MONO % 6.8 % (3.8-10.2); NEUT % 62.3 % (42.8-82.8); PLATELET COUNT 271 K/MM3 (134-434); RBC 4.46 M/mm3 (3.60-5.2); RDW 15.7 % (11.6-15.6); WHITE BLOOD COUNT 9.7 K/mm3 (4.0-10.0)
[2017-07-29 11:38] LABS: ANION GAP 9 (8-16); BLOOD UREA NITROGEN 8 mg/dL (7-18); CALCIUM 8.4 mg/dL (8.5-10.1); CHLORIDE 109 mmol/L (98-107); CO2 27 mmol/L (21-32); GLUCOSE,RANDOM 133 mg/dL (74-106); POTASSIUM 3.4 mmol/L (3.5-5.1); SODIUM 145 mmol/L (136-145)
[2017-07-29 11:43] LABS: ALK PHOS 91 U/L (45-117); BILIRUBIN,DIRECT 0.5 mg/dL (0.0-0.2); BILIRUBIN,TOTAL 1.8 mg/dL (0.2-1.0); SGOT/AST 22 U/L (15-37); SGPT/ALT 20 U/L (12-78); TOT PROT 6.1 g/dl (6.4-8.2)
--- NOTE | 2017-07-29 13:00 | PN ---
Progress Note (short form) - Note Progress Note: Afebrile; Vss Pt slightly better States still RUQ pain when coughs States she is hungry P/E- Abd- soft, tender on palpation RUQ No rebound or guarding WBC-9.7 (decreased) Jos--1.8 (slight increase from 1.4) LFT-WNL Rec- may begin clear liquids PO and advance as tolerated Encourage OOB/ambulate Antibiotics as ID- suggest continue until taking PO diet, then D/C if no setbacks
--- NOTE | 2017-07-29 13:43 | PN ---
Physical Exam: SUBJECTIVE: Patient seen and examined. Pt endorses RUQ pain only with cough. Pt upgraded to clear liquid diet, but has not received a meal yet. Pt denies chest pain, sob, fever, chills. OBJECTIVE: Vital Signs Period Temp Pulse Resp BP Sys/Calloway Pulse Ox Last 24 Hr 97.8 F-99.2 F 76-82 18-20 126-150/73-99 95-97 GENERAL: Awake, alert, and fully oriented, in no acute distress. LUNGS: Breath sounds equal, clear to auscultation bilaterally. No wheezes, and no crackles. No accessory muscle use. HEART: Regular rate and rhythm, normal S1 and S2 without murmur, rub or gallop. ABDOMEN: Soft, nontender, not distended, no guarding, no rebound, no masses, (+ ) Clemens's sign. LOWER EXTREMITIES: Warm, well-perfused. No calf tenderness. No peripheral edema. PSYCHIATRIC: Cooperative. Good eye contact. Appropriate mood and affect. Laboratory Results - last 24 hr 07/27/17 07/28/17 07/29/17 19:30 16:00 10:50 WBC 9.7 RBC 4.46 Hgb 12.9 Hct 38.8 MCV 87.0 MCH 28.8 MCHC 33.2 RDW 15.7 H Plt Count 271 MPV 9.0 Neutrophils % 62.3 Lymphocytes % 28.0 D Monocytes % 6.8 Eosinophils % 2.5 Basophils % 0.4 Nucleated RBC % 0 Sodium 144 Potassium 3.2 L Chloride 108 H Carbon Dioxide 28 Anion Gap 8 BUN 9 Creatinine 0.9 Creat Clearance w eGFR > 60 Random Glucose 103 Calcium 9.1 Phosphorus Cancelled Magnesium Cancelled Total Bilirubin 0.7 Direct Bilirubin AST 17 ALT 21 Alkaline Phosphatase 80 Creatine Kinase 122 Troponin I < 0.02 Total Protein 6.7 Albumin 3.6 07/29/17 10:50 WBC RBC Hgb Hct MCV MCH MCHC RDW Plt Count MPV Neutrophils % Lymphocytes % Monocytes % Eosinophils % Basophils % Nucleated RBC % Sodium 145 Potassium 3.4 L Chloride 109 H Carbon Dioxide 27 Anion Gap 9 BUN 8 Creatinine 1.0 Creat Clearance w eGFR 56.37 Random Glucose 133 H Calcium 8.4 L Phosphorus Magnesium Total Bilirubin 1.8 H D Direct Bilirubin 0.5 H AST 22 ALT 20 Alkaline Phosphatase 91 Creatine Kinase Troponin I Total Protein 6.1 L Albumin 3.0 L Active Medications Generic Name Dose Route Start Last Admin Trade Name Freq PRN Reason Stop Dose Admin Albuterol Sulfate 1 - 2 puff 07/28/17 02:49 07/28/17 10:09 Ventolin Hfa Inhaler - IH 2 puff Q4H PRN Administration SHORT OF BREATH/WHEEZING Albuterol Sulfate 1 amp 07/28/17 15:40 07/29/17 10:45 Ventolin 0.083% Nebulizer Soln - NEB 1 amp Q6H PRN Administration SHORT OF BREATH/WHEEZING Budesonide/Formoterol Fumarate 2 puff 07/28/17 10:00 07/29/17 09:42 Symbicort 160/4.5mcg - IH 2 puff BID VINNIE Administration Heparin Sodium (Porcine) 5,000 unit 07/28/17 06:00 07/29/17 06:30 Heparin - SQ Not Given TID VINNIE Piperacillin Sod/Tazobactam 100 mls @ 200 mls/hr 07/28/17 15:45 07/29/17 09: 42 Sod 4.5 gm/ Dextrose IVPB 200 mls/hr Q8H-IV VINNIE Administration Protocol Montelukast Sodium 10 mg 07/28/17 22:00 07/28/17 21:30 Singulair - PO 10 mg HS VINNIE Administration ASSESSMENT/PLAN: 62F with PMH of asthma and morbid obesity (s/p gastric sleeve 05/2017), presented to hospital with atypical chest pain, found to have cholecystitis. # cholecystitis - pt remains afebrile - leukocytosis resolved - T. bili increased to 1.8 today, from 1.4. Elevated D. bili noted. - blood cultures (-) x 24 hrs - continue IV Zosyn (Day 2) - Surgery (Dr. Farrell) recs appreciated: clear liquid diet -> advance as tolerated # asthma - continue home meds per primary team # hypokalemia - to be repleted by primary team Plan discussed with Dr. Landon. Visit type - Emergency Visit Emergency Visit: Yes ED Registration Date: 07/28/17 Care time: The patient presented to the Emergency Department on the above date and was hospitalized for further evaluation of their emergent condition. - New Patient This patient is new to me today: No - Critical Care Critical Care patient: No
--- NOTE | 2017-07-29 15:13 | PN ---
Progress Note, Physician Chief Complaint: AWAKE, ALERT STILL HAVING ABD PAIN STARTED CLEAR DIET NO FEVERS - Current Medication List Current Medications: Active Medications Albuterol Sulfate (Ventolin Hfa Inhaler -) 1 - 2 puff IH Q4H PRN PRN Reason: SHORT OF BREATH/WHEEZING Last Admin: 07/28/17 10:09 Dose: 2 puff Albuterol Sulfate (Ventolin 0.083% Nebulizer Soln -) 1 amp NEB Q6H PRN PRN Reason: SHORT OF BREATH/WHEEZING Last Admin: 07/29/17 10:45 Dose: 1 amp Budesonide/Formoterol Fumarate (Symbicort 160/4.5mcg -) 2 puff IH BID VINNIE Last Admin: 07/29/17 09:42 Dose: 2 puff Heparin Sodium (Porcine) (Heparin -) 5,000 unit SQ TID VINNIE Last Admin: 07/29/17 13:34 Dose: 5,000 unit Piperacillin Sod/Tazobactam (Sod 4.5 gm/ Dextrose) 100 mls @ 200 mls/hr IVPB Q8H-IV VINNIE PRN Reason: Protocol Last Admin: 07/29/17 09:42 Dose: 200 mls/hr Montelukast Sodium (Singulair -) 10 mg PO HS VINNIE Last Admin: 07/28/17 21:30 Dose: 10 mg - Objective Vital Signs: Vital Signs Temperature 98.3 F 07/29/17 14:02 Pulse Rate 83 07/29/17 14:02 Respiratory Rate 16 07/29/17 14:02 Blood Pressure 120/83 07/29/17 14:02 O2 Sat by Pulse Oximetry (%) 96 07/29/17 09:00 Constitutional: Yes: Mild Distress Eyes: Yes: WNL HENT: Yes: WNL Neck: Yes: WNL Cardiovascular: Yes: WNL Respiratory: Yes: WNL Gastrointestinal: Yes: Tenderness Genitourinary: Yes: WNL Musculoskeletal: Yes: WNL Extremities: Yes: WNL Edema: No Peripheral Pulses WNL: Yes Integumentary: Yes: WNL Wound/Incision: Yes: Clean/Dry Neurological: Yes: WNL ...Motor Strength: WNL Psychiatric: Yes: WNL Labs: CBC, BMP 07/29/17 10:50 07/29/17 10:50 INR, PTT INR 1.10 (0.82-1.09) 07/27/17 19:30 Problem List - Problems (1) Abdominal pain Code(s): R10.9 - UNSPECIFIED ABDOMINAL PAIN (2) Cholelithiasis Code(s): K80.20 - CALCULUS OF GALLBLADDER W/O CHOLECYSTITIS W/O OBSTRUCTION (3) Benign essential hypertension Code(s): I10 - ESSENTIAL (PRIMARY) HYPERTENSION (4) S/P laparoscopic sleeve gastrectomy Code(s): Z98.84 - BARIATRIC SURGERY STATUS Assessment/Plan IVF AND IV ABX CLEAR DIET SX EVAL OOB TO CHAIR REPLETE KCL
[2017-07-29] MEDS ORDERED: POTASSIUM CHLORIDE TABS 10 MEQ TABLET.ER (FP) PO ONE (17:28)
[2017-07-29] MEDS: MONTELUKAST NA 10 MG TABLET PO SCH (22:51)
[2017-07-30] MEDS ORDERED: PIPERACILLIN/TAZOBACTAM 4.5 GM VIAL IVPB ONE ×3 (01:26→17:23)
[2017-07-30] MEDS ORDERED: DEXTROSE 5%-WATER 100 ML IVPB ONE ×3 (01:26→17:23)
[2017-07-30] MEDS: PIPERACILLIN/TAZOB 4.5 GM 4.5 GM in DEXTROSE 5%-WATER 100 ML IVPB SCH ×3 (02:14→17:33)
[2017-07-30] MEDS: ALBUTEROL SO4 0.083% IH SOL 2.5 MG/3 ML VIAL.NEB. NEB PRN ×3 (02:57→18:26)
[2017-07-30] MEDS: HEPARIN NA (PORCINE) 5,000 UNITS/ML 1ML VIAL SQ SCH ×3 (06:39→21:19)
[2017-07-30 07:50] LABS: ANION GAP 9 (8-16); BLOOD UREA NITROGEN 8 mg/dL (7-18); CALCIUM 8.2 mg/dL (8.5-10.1); CHLORIDE 107 mmol/L (98-107); CO2 27 mmol/L (21-32); GLUCOSE,RANDOM 105 mg/dL (74-106); MAGNESIUM 2.2 mg/dL (1.8-2.4); POTASSIUM 3.4 mmol/L (3.5-5.1); SODIUM 143 mmol/L (136-145)
[2017-07-30] MEDS ORDERED: PT OWN MED DRAWER 7, Y5N ONE ×2 (09:20→21:13)
[2017-07-30] MEDS: BUDESONIDE/FORMETEROL FUMARATE 160/4.5 mcg INHALER IH SCH ×2 (09:23→21:18)
--- NOTE | 2017-07-30 10:56 | PN ---
Progress Note, Physician Chief Complaint: AWAKE ALERT STILL NAUSEA FEELING ON CLEARS - Current Medication List Current Medications: Active Medications Albuterol Sulfate (Ventolin Hfa Inhaler -) 1 - 2 puff IH Q4H PRN PRN Reason: SHORT OF BREATH/WHEEZING Last Admin: 07/28/17 10:09 Dose: 2 puff Albuterol Sulfate (Ventolin 0.083% Nebulizer Soln -) 1 amp NEB Q6H PRN PRN Reason: SHORT OF BREATH/WHEEZING Last Admin: 07/30/17 07:22 Dose: 1 amp Budesonide/Formoterol Fumarate (Symbicort 160/4.5mcg -) 2 puff IH BID VINNIE Last Admin: 07/30/17 09:23 Dose: 2 puff Heparin Sodium (Porcine) (Heparin -) 5,000 unit SQ TID VINNIE Last Admin: 07/30/17 06:39 Dose: 5,000 unit Piperacillin Sod/Tazobactam (Sod 4.5 gm/ Dextrose) 100 mls @ 200 mls/hr IVPB Q8H-IV VINNIE; Protocol Last Admin: 07/30/17 09:23 Dose: 200 mls/hr Montelukast Sodium (Singulair -) 10 mg PO HS VINNIE Last Admin: 07/29/17 22:51 Dose: 10 mg Potassium Chloride (K-Dur -) 10 meq PO ONCE ONE Stop: 07/30/17 10:55 - Objective Vital Signs: Vital Signs Temperature 98.9 F 07/30/17 09:29 Pulse Rate 78 07/30/17 09:29 Respiratory Rate 18 07/30/17 09:29 Blood Pressure 126/67 07/30/17 09:29 O2 Sat by Pulse Oximetry (%) 93 L 07/29/17 21:00 Constitutional: Yes: Mild Distress Eyes: Yes: WNL HENT: Yes: WNL Neck: Yes: WNL Cardiovascular: Yes: WNL Respiratory: Yes: WNL Gastrointestinal: Yes: Tenderness Genitourinary: Yes: WNL Musculoskeletal: Yes: WNL Extremities: Yes: WNL Edema: Yes Peripheral Pulses WNL: Yes Integumentary: Yes: WNL Wound/Incision: Yes: Clean/Dry Neurological: Yes: WNL ...Motor Strength: WNL Psychiatric: Yes: WNL Labs: CBC, BMP 07/29/17 10:50 07/30/17 06:20 INR, PTT INR 1.10 (0.82-1.09) 07/27/17 19:30 Problem List - Problems (1) Abdominal pain Code(s): R10.9 - UNSPECIFIED ABDOMINAL PAIN (2) Cholelithiasis Code(s): K80.20 - CALCULUS OF GALLBLADDER W/O CHOLECYSTITIS W/O OBSTRUCTION (3) Benign essential hypertension Code(s): I10 - ESSENTIAL (PRIMARY) HYPERTENSION (4) S/P laparoscopic sleeve gastrectomy Code(s): Z98.84 - BARIATRIC SURGERY STATUS Assessment/Plan ADVANCE TO FULL LIQUID DIET CHECK LABS REPLETE K+ OOB TO CHAIR DVT PROPHYLAXIS IV ABX CONTINUED
[2017-07-30] MEDS ORDERED: POTASSIUM CHLORIDE TABS 10 MEQ TABLET.ER (FP) PO ONE (11:00)
--- NOTE | 2017-07-30 11:50 | PN ---
Physical Exam: SUBJECTIVE: Patient seen and examined. Pt endorses RUQ pain on palpation only. Pt tolerating clear liquids, diet upgraded to full liquids for lunch. Pt reports one bowel movement yesterday. Pt denies chest pain, sob, fever, chills. OBJECTIVE: Vital Signs Period Temp Pulse Resp BP Sys/Calloway Pulse Ox Last 24 Hr 98.3 F-99.2 F 78-84 16-20 118-126/67-88 93-96 GENERAL: Awake, alert, and fully oriented, in mild distress. LUNGS: Breath sounds equal, clear to auscultation bilaterally. No wheezes, and no crackles. No accessory muscle use. HEART: Regular rate and rhythm, normal S1 and S2 without murmur, rub or gallop. ABDOMEN: RUQ tender to palpation, soft, not distended, (+) Clemens's sign. LOWER EXTREMITIES: Warm, well-perfused. No calf tenderness. No peripheral edema. PSYCHIATRIC: Cooperative. Good eye contact. Appropriate mood and affect. Laboratory Results - last 24 hr 07/29/17 07/30/17 10:50 06:20 Sodium 145 143 Potassium 3.4 L 3.4 L Chloride 109 H 107 Carbon Dioxide 27 27 Anion Gap 9 9 BUN 8 8 Creatinine 1.0 1.0 Creat Clearance w eGFR 56.37 Random Glucose 133 H 105 Calcium 8.4 L 8.2 L Magnesium 2.2 Total Bilirubin 1.8 H D Direct Bilirubin 0.5 H AST 22 ALT 20 Alkaline Phosphatase 91 Total Protein 6.1 L Albumin 3.0 L Active Medications Generic Name Dose Route Start Last Admin Trade Name Freq PRN Reason Stop Dose Admin Albuterol Sulfate 1 - 2 puff 07/28/17 02:49 07/28/17 10:09 Ventolin Hfa Inhaler - IH 2 puff Q4H PRN Administration SHORT OF BREATH/WHEEZING Albuterol Sulfate 1 amp 07/28/17 15:40 07/30/17 07:22 Ventolin 0.083% Nebulizer Soln - NEB 1 amp Q6H PRN Administration SHORT OF BREATH/WHEEZING Budesonide/Formoterol Fumarate 2 puff 07/28/17 10:00 07/30/17 09:23 Symbicort 160/4.5mcg - IH 2 puff BID VINNIE Administration Heparin Sodium (Porcine) 5,000 unit 07/28/17 06:00 07/30/17 06:39 Heparin - SQ 5,000 unit TID VINNIE Administration Piperacillin Sod/Tazobactam 100 mls @ 200 mls/hr 07/28/17 15:45 07/30/17 09: 23 Sod 4.5 gm/ Dextrose IVPB 200 mls/hr Q8H-IV VINNIE Administration Protocol Montelukast Sodium 10 mg 07/28/17 22:00 07/29/17 22:51 Singulair - PO 10 mg HS VINNIE Administration ASSESSMENT/PLAN: 62F with PMH of asthma and morbid obesity (s/p gastric sleeve 05/2017), presented to hospital with atypical chest pain, found to have cholecystitis. # cholecystitis - pt remains afebrile - leukocytosis resolved - blood cultures (-) x 24 hrs - continue IV Zosyn (Day 3) # asthma - continue home meds per primary team # hypokalemia - to be repleted by primary team Plan discussed with Dr. Landon. Visit type - Emergency Visit Emergency Visit: Yes ED Registration Date: 07/28/17 Care time: The patient presented to the Emergency Department on the above date and was hospitalized for further evaluation of their emergent condition. - New Patient This patient is new to me today: No - Critical Care Critical Care patient: No
[2017-07-30] MEDS ORDERED: KETOROLAC TROMETHAMINE 15 MG/ML VIAL IVPUSH PRN (18:05)
[2017-07-30] MEDS ORDERED: PANTOPRAZOLE SODIUM 40 MG VIAL IVPUSH ONE (18:06)
[2017-07-30] MEDS: MONTELUKAST NA 10 MG TABLET PO SCH (21:18)
[2017-07-31] MEDS ORDERED: PIPERACILLIN/TAZOBACTAM 4.5 GM VIAL IVPB ONE ×3 (01:01→17:29)
[2017-07-31] MEDS ORDERED: DEXTROSE 5%-WATER 100 ML IVPB ONE ×3 (01:01→17:29)
[2017-07-31] MEDS: PIPERACILLIN/TAZOB 4.5 GM 4.5 GM in DEXTROSE 5%-WATER 100 ML IVPB SCH ×3 (01:05→17:36)
[2017-07-31] MEDS: HEPARIN NA (PORCINE) 5,000 UNITS/ML 1ML VIAL SQ SCH ×3 (05:15→21:53)
[2017-07-31 06:39] LABS: HEMATOCRIT 36.4 % (32.4-45.2); MCH 28.7 pg (25.7-33.7); MCHC 33.1 g/dl (32.0-36.0); MEAN CELL VOLUME 86.6 fl (80-96); PLATELET COUNT 261 K/MM3 (134-434); RDW 15.5 % (11.6-15.6); WHITE BLOOD COUNT 11.1 K/mm3 (4.0-10.0)
[2017-07-31 07:02] LABS: ALBUMIN 2.8 g/dl (3.4-5.0); ANION GAP 8 (8-16); BLOOD UREA NITROGEN 7 mg/dL (7-18); CALCIUM 8.5 mg/dL (8.5-10.1); CHLORIDE 108 mmol/L (98-107); CO2 28 mmol/L (21-32); GLUCOSE,RANDOM 103 mg/dL (74-106); POTASSIUM 3.4 mmol/L (3.5-5.1); SODIUM 144 mmol/L (136-145)
[2017-07-31 07:06] LABS: ALK PHOS 97 U/L (45-117); BILIRUBIN,TOTAL 1.7 mg/dL (0.2-1.0); CREATININE 0.9 mg/dL (0.55-1.02); SGOT/AST 20 U/L (15-37); SGPT/ALT 21 U/L (12-78); TOT PROT 5.9 g/dl (6.4-8.2)
[2017-07-31] MEDS: ALBUTEROL SO4 0.083% IH SOL 2.5 MG/3 ML VIAL.NEB. NEB PRN ×3 (08:51→21:20)
[2017-07-31] MEDS ORDERED: PT OWN MED DRAWER 7, Y5N ONE ×2 (09:26→21:28)
[2017-07-31] MEDS: BUDESONIDE/FORMETEROL FUMARATE 160/4.5 mcg INHALER IH SCH ×2 (09:52→21:54)
--- NOTE | 2017-07-31 11:27 | PN ---
Progress Note, Physician Chief Complaint: Cholecystitis History of Present Illness: NAD, Stil intermittent pain RUQ and RLQ - Current Medication List Current Medications: Active Medications Albuterol Sulfate (Ventolin Hfa Inhaler -) 1 - 2 puff IH Q4H PRN PRN Reason: SHORT OF BREATH/WHEEZING Last Admin: 07/28/17 10:09 Dose: 2 puff Albuterol Sulfate (Ventolin 0.083% Nebulizer Soln -) 1 amp NEB Q6H PRN PRN Reason: SHORT OF BREATH/WHEEZING Last Admin: 07/31/17 08:51 Dose: 1 amp Budesonide/Formoterol Fumarate (Symbicort 160/4.5mcg -) 2 puff IH BID VINNIE Last Admin: 07/31/17 09:52 Dose: 2 puff Heparin Sodium (Porcine) (Heparin -) 5,000 unit SQ TID VINNIE Last Admin: 07/31/17 05:15 Dose: 5,000 unit Piperacillin Sod/Tazobactam (Sod 4.5 gm/ Dextrose) 100 mls @ 200 mls/hr IVPB Q8H-IV VINNIE; Protocol Last Admin: 07/31/17 09:52 Dose: 200 mls/hr Ketorolac Tromethamine (Toradol Injection -) 15 mg IVPUSH Q6H PRN PRN Reason: PAIN LEVEL 7 - 10 Stop: 08/04/17 18:04 Last Admin: 07/30/17 19:43 Dose: 15 mg Montelukast Sodium (Singulair -) 10 mg PO HS [facility] Last Admin: 07/30/17 21:18 Dose: 10 mg Potassium Chloride (Potassium Chloride Oral Liquid) 20 meq PO DAILY [facility] - Objective Vital Signs: Vital Signs Temperature 99.0 F 07/31/17 09:48 Pulse Rate 81 07/31/17 09:48 Respiratory Rate 20 07/31/17 09:48 Blood Pressure 140/72 07/31/17 09:48 O2 Sat by Pulse Oximetry (%) 94 L 07/31/17 09:00 Labs: CBC, BMP 07/31/17 05:35 07/31/17 05:35 INR, PTT INR 1.10 (0.82-1.09) 07/27/17 19:30 Problem List - Problems (1) Cholecystitis Assessment/Plan: -2/2 to drastic weight loss s/p sleeve gastrectomy -Seen by GI and Surgery -IV abx -ID consult appreciated Code(s): K81.9 - CHOLECYSTITIS, UNSPECIFIED (2) Abdominal pain Assessment/Plan: -Improved, but still intermittent -tolerating po intake -no N/V -had diarrhea x 1 yesterday- likely 2/2 to iv abx Code(s): R10.9 - UNSPECIFIED ABDOMINAL PAIN (3) S/P laparoscopic sleeve gastrectomy Assessment/Plan: advance diet as tolerated Code(s): Z98.84 - BARIATRIC SURGERY STATUS Assessment/Plan see problem list
[2017-07-31] MEDS: POTASSIUM CHLORIDE ORAL LIQUID 20 MEQ/15 ML PO SCH (12:57)
--- NOTE | 2017-07-31 12:59 | PN ---
Physical Exam: SUBJECTIVE: Patient seen and examined. Pt endorses RUQ pain with coughing. Pt reports an episode of chest pain last night, similar to that which prompted her to come to the hospital, rated 4/10, relieved with Toradol. Pt tolerating full liquids. Pt denies chest pain, sob, fever, chills. OBJECTIVE: Vital Signs Period Temp Pulse Resp BP Sys/Calloway Pulse Ox Last 24 Hr 98.2 F-99.2 F 77-89 16-20 134-148/65-86 94-95 GENERAL: Awake, alert, and fully oriented, in mild distress. LUNGS: Breath sounds equal, clear to auscultation bilaterally. No wheezes, and no crackles. No accessory muscle use. HEART: Regular rate and rhythm, normal S1 and S2 without murmur, rub or gallop. ABDOMEN: RUQ tender to palpation, soft, not distended, (+) Clemens's sign. LOWER EXTREMITIES: Warm, well-perfused. No calf tenderness. No peripheral edema. PSYCHIATRIC: Cooperative. Good eye contact. Appropriate mood and affect. Laboratory Results - last 24 hr 07/31/17 07/31/17 05:35 05:35 WBC 11.1 H RBC 4.20 Hgb 12.0 Hct 36.4 MCV 86.6 MCH 28.7 MCHC 33.1 RDW 15.5 Plt Count 261 MPV 9.0 Sodium 144 Potassium 3.4 L Chloride 108 H Carbon Dioxide 28 Anion Gap 8 BUN 7 Creatinine 0.9 Creat Clearance w eGFR > 60 Random Glucose 103 Calcium 8.5 Total Bilirubin 1.7 H AST 20 ALT 21 Alkaline Phosphatase 97 Total Protein 5.9 L Albumin 2.8 L Active Medications Generic Name Dose Route Start Last Admin Trade Name Freq PRN Reason Stop Dose Admin Albuterol Sulfate 1 - 2 puff 07/28/17 02:49 07/28/17 10:09 Ventolin Hfa Inhaler - IH 2 puff Q4H PRN Administration SHORT OF BREATH/WHEEZING Albuterol Sulfate 1 amp 07/28/17 15:40 07/31/17 08:51 Ventolin 0.083% Nebulizer Soln - NEB 1 amp Q6H PRN Administration SHORT OF BREATH/WHEEZING Budesonide/Formoterol Fumarate 2 puff 07/28/17 10:00 07/31/17 09:52 Symbicort 160/4.5mcg - IH 2 puff BID VINNIE Administration Heparin Sodium (Porcine) 5,000 unit 07/28/17 06:00 07/31/17 05:15 Heparin - SQ 5,000 unit TID VINNIE Administration Piperacillin Sod/Tazobactam 100 mls @ 200 mls/hr 07/28/17 15:45 07/31/17 09: 52 Sod 4.5 gm/ Dextrose IVPB 200 mls/hr Q8H-IV VINNIE Administration Protocol Ketorolac Tromethamine 15 mg 07/30/17 18:05 07/30/17 19:43 Toradol Injection - IVPUSH 08/04/17 18:04 15 mg Q6H PRN Administration PAIN LEVEL 7 - 10 Montelukast Sodium 10 mg 07/28/17 22:00 07/30/17 21:18 Singulair - PO 10 mg HS VINNIE Administration Potassium Chloride 20 meq 07/31/17 11:45 Potassium Chloride Oral Liquid PO DAILY VINNIE ASSESSMENT/PLAN: 62F with PMH of asthma and morbid obesity (s/p gastric sleeve 05/2017), presented to hospital with atypical chest pain, found to have cholecystitis. # cholecystitis - continue IV Zosyn (Day 4) - pt remains afebrile - leukocytosis today of 11.1 - blood cultures (-) x 48 hrs - Surgery (Dr. Farrell) recs appreciated # asthma - continue home meds per primary team # hypokalemia - to be repleted by primary team Plan discussed with Dr. Landon. Visit type - Emergency Visit Emergency Visit: Yes ED Registration Date: 07/28/17 Care time: The patient presented to the Emergency Department on the above date and was hospitalized for further evaluation of their emergent condition. - New Patient This patient is new to me today: No - Critical Care Critical Care patient: No
--- NOTE | 2017-07-31 16:19 | PN ---
Progress Note (short form) - Note Progress Note: Pt states had pain last night similar to on admission Pain relieved with Toradol No N/V Tolerating soft diet Still with + Clemens's sign WBC-11.1 (increased) LFT-remain normal P- Hida scan 08/01 Lamb diet Cont abx Encourage OOB and ambulate
[2017-07-31] MEDS ORDERED: ACETAMINOPHEN 325 MG TABLET (FP) PO ONE (16:30)
[2017-07-31] MEDS ORDERED: oxyCODONE HCL 5 MG TABLET PO ONE (16:30)
[2017-07-31] MEDS: MONTELUKAST NA 10 MG TABLET PO SCH (21:54)
[2017-07-31] MEDS ORDERED: ONDANSETRON 4 MG/2 ML VIAL IVPUSH PRN (22:20)
[2017-08-01] MEDS ORDERED: PIPERACILLIN/TAZOBACTAM 4.5 GM VIAL IVPB ONE ×3 (01:39→17:55)
[2017-08-01] MEDS ORDERED: DEXTROSE 5%-WATER 100 ML IVPB ONE ×3 (01:40→17:55)
[2017-08-01] MEDS: PIPERACILLIN/TAZOB 4.5 GM 4.5 GM in DEXTROSE 5%-WATER 100 ML IVPB SCH ×3 (01:42→17:58)
[2017-08-01] MEDS: HEPARIN NA (PORCINE) 5,000 UNITS/ML 1ML VIAL SQ SCH ×3 (05:07→21:04)
[2017-08-01 06:33] LABS: HEMATOCRIT 34.7 % (32.4-45.2); HEMOGLOBIN 11.9 GM/dL (10.7-15.3); MCH 29.7 pg (25.7-33.7); MCHC 34.2 g/dl (32.0-36.0); MEAN CELL VOLUME 86.8 fl (80-96); MEAN PLT VOLUME 8.8 fl (7.5-11.1); PLATELET COUNT 259 K/MM3 (134-434); RDW 15.5 % (11.6-15.6); WHITE BLOOD COUNT 10.1 K/mm3 (4.0-10.0)
[2017-08-01] MEDS: ALBUTEROL SO4 0.083% IH SOL 2.5 MG/3 ML VIAL.NEB. NEB PRN ×3 (06:46→23:30)
[2017-08-01 07:04] LABS: ALBUMIN 2.8 g/dl (3.4-5.0); ANION GAP 8 (8-16); BLOOD UREA NITROGEN 7 mg/dL (7-18); CALCIUM 8.4 mg/dL (8.5-10.1); CHLORIDE 107 mmol/L (98-107); CO2 27 mmol/L (21-32); GLUCOSE,RANDOM 95 mg/dL (74-106); POTASSIUM 3.5 mmol/L (3.5-5.1); SODIUM 142 mmol/L (136-145)
[2017-08-01 07:07] LABS: ALK PHOS 101 U/L (45-117); BILIRUBIN,TOTAL 1.1 mg/dL (0.2-1.0); CREATININE 0.9 mg/dL (0.55-1.02); SGOT/AST 21 U/L (15-37); SGPT/ALT 21 U/L (12-78); TOT PROT 5.9 g/dl (6.4-8.2)
[2017-08-01] MEDS ORDERED: PT OWN MED DRAWER 7, Y5N ONE ×2 (08:59→20:59)
[2017-08-01] MEDS: BUDESONIDE/FORMETEROL FUMARATE 160/4.5 mcg INHALER IH SCH ×2 (09:14→21:03)
[2017-08-01] MEDS: POTASSIUM CHLORIDE ORAL LIQUID 20 MEQ/15 ML PO SCH (09:14)
--- NOTE | 2017-08-01 10:42 | PN ---
Progress Note, Physician Chief Complaint: HIDA SCAN TODAY AWAIT RESULTS IV ABX - Current Medication List Current Medications: Active Medications Albuterol Sulfate (Ventolin Hfa Inhaler -) 1 - 2 puff IH Q4H PRN PRN Reason: SHORT OF BREATH/WHEEZING Last Admin: 07/28/17 10:09 Dose: 2 puff Albuterol Sulfate (Ventolin 0.083% Nebulizer Soln -) 1 amp NEB Q6H PRN PRN Reason: SHORT OF BREATH/WHEEZING Last Admin: 08/01/17 06:46 Dose: 1 amp Budesonide/Formoterol Fumarate (Symbicort 160/4.5mcg -) 2 puff IH BID [facility] Last Admin: 08/01/17 09:14 Dose: 2 puff Heparin Sodium (Porcine) (Heparin -) 5,000 unit SQ TID VINNIE Last Admin: 08/01/17 05:07 Dose: 5,000 unit Piperacillin Sod/Tazobactam (Sod 4.5 gm/ Dextrose) 100 mls @ 200 mls/hr IVPB Q8H-IV VINNIE; Protocol Last Admin: 08/01/17 09:15 Dose: 200 mls/hr Ketorolac Tromethamine (Toradol Injection -) 15 mg IVPUSH Q6H PRN PRN Reason: PAIN LEVEL 7 - 10 Stop: 08/04/17 18:04 Last Admin: 07/30/17 19:43 Dose: 15 mg Montelukast Sodium (Singulair -) 10 mg PO HS [facility] Last Admin: 07/31/17 21:54 Dose: 10 mg Ondansetron HCl (Zofran Injection) 4 mg IVPUSH Q6H PRN PRN Reason: NAUSEA Last Admin: 07/31/17 22:33 Dose: 4 mg Potassium Chloride (Potassium Chloride Oral Liquid) 20 meq PO DAILY [facility] Last Admin: 08/01/17 09:14 Dose: 20 meq - Objective Vital Signs: Vital Signs Temperature 98.4 F 08/01/17 10:00 Pulse Rate 78 08/01/17 10:00 Respiratory Rate 20 08/01/17 10:00 Blood Pressure 125/73 08/01/17 10:00 O2 Sat by Pulse Oximetry (%) 95 08/01/17 09:00 Constitutional: Yes: Mild Distress Eyes: Yes: WNL HENT: Yes: WNL Neck: Yes: WNL Cardiovascular: Yes: WNL Respiratory: Yes: WNL Gastrointestinal: Yes: Tenderness Genitourinary: Yes: WNL Musculoskeletal: Yes: WNL Extremities: Yes: WNL Edema: No Peripheral Pulses WNL: Yes Integumentary: Yes: WNL Wound/Incision: Yes: Clean/Dry Neurological: Yes: WNL ...Motor Strength: WNL Psychiatric: Yes: WNL Labs: CBC, BMP 08/01/17 06:00 08/01/17 06:00 INR, PTT INR 1.10 (0.82-1.09) 07/27/17 19:30 Problem List - Problems (1) Abdominal pain Code(s): R10.9 - UNSPECIFIED ABDOMINAL PAIN (2) Cholelithiasis Code(s): K80.20 - CALCULUS OF GALLBLADDER W/O CHOLECYSTITIS W/O OBSTRUCTION (3) Benign essential hypertension Code(s): I10 - ESSENTIAL (PRIMARY) HYPERTENSION (4) S/P laparoscopic sleeve gastrectomy Code(s): Z98.84 - BARIATRIC SURGERY STATUS Assessment/Plan IV ABX CONTINUE HIDA SCAN TODAY SURGERY F/U
--- NOTE | 2017-08-01 13:10 | PN ---
Physical Exam: SUBJECTIVE: Patient seen and examined. Pt endorses persistent abdominal discomfort. Pt denies chest pain, sob, fever, chills. OBJECTIVE: Vital Signs Period Temp Pulse Resp BP Sys/Calloway Pulse Ox Last 24 Hr 98.4 F-99.3 F 78-86 20-20 125-139/51-89 95-95 GENERAL: Awake, alert, and fully oriented, in NAD. LUNGS: Breath sounds equal, clear to auscultation bilaterally. No wheezes, and no crackles. No accessory muscle use. HEART: Regular rate and rhythm, normal S1 and S2 without murmur, rub or gallop. ABDOMEN: RUQ tender to palpation, soft, not distended. LOWER EXTREMITIES: Warm, well-perfused. No calf tenderness. No peripheral edema. PSYCHIATRIC: Cooperative. Good eye contact. Appropriate mood and affect. Laboratory Results - last 24 hr 08/01/17 08/01/17 06:00 06:00 WBC 10.1 H RBC 4.00 Hgb 11.9 Hct 34.7 MCV 86.8 MCH 29.7 MCHC 34.2 RDW 15.5 Plt Count 259 MPV 8.8 Sodium 142 Potassium 3.5 Chloride 107 Carbon Dioxide 27 Anion Gap 8 BUN 7 Creatinine 0.9 Creat Clearance w eGFR > 60 Random Glucose 95 Calcium 8.4 L Total Bilirubin 1.1 H D AST 21 ALT 21 Alkaline Phosphatase 101 Total Protein 5.9 L Albumin 2.8 L Active Medications Generic Name Dose Route Start Last Admin Trade Name Freq PRN Reason Stop Dose Admin Albuterol Sulfate 1 - 2 puff 07/28/17 02:49 07/28/17 10:09 Ventolin Hfa Inhaler - IH 2 puff Q4H PRN Administration SHORT OF BREATH/WHEEZING Albuterol Sulfate 1 amp 07/28/17 15:40 08/01/17 06:46 Ventolin 0.083% Nebulizer Soln - NEB 1 amp Q6H PRN Administration SHORT OF BREATH/WHEEZING Budesonide/Formoterol Fumarate 2 puff 07/28/17 10:00 08/01/17 09:14 Symbicort 160/4.5mcg - IH 2 puff BID VINNIE Administration Heparin Sodium (Porcine) 5,000 unit 07/28/17 06:00 08/01/17 05:07 Heparin - SQ 5,000 unit TID VINNIE Administration Piperacillin Sod/Tazobactam 100 mls @ 200 mls/hr 07/28/17 15:45 08/01/17 09: 15 Sod 4.5 gm/ Dextrose IVPB 200 mls/hr Q8H-IV VINNIE Administration Protocol Ketorolac Tromethamine 15 mg 07/30/17 18:05 07/30/17 19:43 Toradol Injection - IVPUSH 08/04/17 18:04 15 mg Q6H PRN Administration PAIN LEVEL 7 - 10 Montelukast Sodium 10 mg 07/28/17 22:00 07/31/17 21:54 Singulair - PO 10 mg HS VINNIE Administration Ondansetron HCl 4 mg 07/31/17 22:20 07/31/17 22:33 Zofran Injection IVPUSH 4 mg Q6H PRN Administration NAUSEA Potassium Chloride 20 meq 07/31/17 11:45 08/01/17 09:14 Potassium Chloride Oral Liquid PO 20 meq DAILY VINNIE Administration ASSESSMENT/PLAN: 62F with PMH of asthma and morbid obesity (s/p gastric sleeve 05/2017), presented to hospital with atypical chest pain, found to have cholecystitis. # cholecystitis - continue IV Zosyn (Day 5) - pt remains afebrile - leukocytosis improved today - T. bili improving today - blood cultures (-) x 72 hrs - Surgery (Dr. Farrell) recs appreciated: f/u HIDA scan # asthma - continue home meds per primary team Plan discussed with Dr. Landon. Visit type - Emergency Visit Emergency Visit: Yes ED Registration Date: 07/28/17 Care time: The patient presented to the Emergency Department on the above date and was hospitalized for further evaluation of their emergent condition. - New Patient This patient is new to me today: No - Critical Care Critical Care patient: No
[2017-08-01] MEDS: MONTELUKAST NA 10 MG TABLET PO SCH (21:03)
[2017-08-02] MEDS ORDERED: DEXTROSE 5%-WATER 100 ML IVPB ONE ×3 (00:10→17:51)
[2017-08-02] MEDS ORDERED: PIPERACILLIN/TAZOBACTAM 4.5 GM VIAL IVPB ONE ×3 (00:10→17:51)
[2017-08-02] MEDS: PIPERACILLIN/TAZOB 4.5 GM 4.5 GM in DEXTROSE 5%-WATER 100 ML IVPB SCH ×3 (02:18→18:42)
[2017-08-02] MEDS: HEPARIN NA (PORCINE) 5,000 UNITS/ML 1ML VIAL SQ SCH ×3 (05:40→21:51)
[2017-08-02] MEDS ORDERED: PT OWN MED DRAWER 7, Y5N ONE ×2 (09:06→09:37)
[2017-08-02] MEDS: POTASSIUM CHLORIDE ORAL LIQUID 20 MEQ/15 ML PO SCH (09:27)
[2017-08-02] MEDS: BUDESONIDE/FORMETEROL FUMARATE 160/4.5 mcg INHALER IH SCH ×2 (09:27→21:52)
[2017-08-02] MEDS ORDERED: traMADol HCL 50 MG TABLET PO PRN (12:36)
--- NOTE | 2017-08-02 12:39 | PN ---
Progress Note (short form) - Note Progress Note: Pt feels better No abd pain Tolerating bland diet No N/V BM yesterday, not today HIDA scan shows acute cholecystitis Rec- Cont bland diet Check labs 08/03/17 Encourage Ambulation Cont IV antibiotics
--- NOTE | 2017-08-02 13:54 | PN ---
Physical Exam: SUBJECTIVE: Patient seen and examined. She has no complaints and is tolerating diet. OBJECTIVE: Vital Signs Period Temp Pulse Resp BP Sys/Calloway Pulse Ox Last 24 Hr 97.9 F-99.5 F 69-80 18-20 127-145/73-81 94-95 GENERAL: The patient is awake, alert, and fully oriented, in no acute distress. LUNGS: Breath sounds equal, clear to auscultation bilaterally, no wheezes, no crackles, no accessory muscle use. HEART: Regular rate and rhythm, S1, S2 without murmur, rub or gallop. ABDOMEN: Obese, soft, (+) RUQ tenderness, nondistended, normoactive bowel sounds , no guarding, no rebound, no hepatosplenomegaly, no masses. EXTREMITIES: 2+ pulses, warm, well-perfused, no edema. Active Medications Generic Name Dose Route Start Last Admin Trade Name Freq PRN Reason Stop Dose Admin Albuterol Sulfate 1 - 2 puff 07/28/17 02:49 07/28/17 10:09 Ventolin Hfa Inhaler - IH 2 puff Q4H PRN Administration SHORT OF BREATH/WHEEZING Albuterol Sulfate 1 amp 07/28/17 15:40 08/01/17 23:30 Ventolin 0.083% Nebulizer Soln - NEB 1 amp Q6H PRN Administration SHORT OF BREATH/WHEEZING Budesonide/Formoterol Fumarate 2 puff 07/28/17 10:00 08/02/17 09:27 Symbicort 160/4.5mcg - IH 2 puff BID VINNIE Administration Heparin Sodium (Porcine) 5,000 unit 07/28/17 06:00 08/02/17 13:47 Heparin - SQ 5,000 unit TID VINNIE Administration Piperacillin Sod/Tazobactam 100 mls @ 200 mls/hr 07/28/17 15:45 08/02/17 09: 33 Sod 4.5 gm/ Dextrose IVPB 200 mls/hr Q8H-IV VINNIE Administration Protocol Ketorolac Tromethamine 15 mg 07/30/17 18:05 07/30/17 19:43 Toradol Injection - IVPUSH 08/04/17 18:04 15 mg Q6H PRN Administration PAIN LEVEL 7 - 10 Montelukast Sodium 10 mg 07/28/17 22:00 08/01/17 21:03 Singulair - PO 10 mg HS VINNIE Administration Ondansetron HCl 4 mg 07/31/17 22:20 07/31/17 22:33 Zofran Injection IVPUSH 4 mg Q6H PRN Administration NAUSEA Potassium Chloride 20 meq 07/31/17 11:45 08/02/17 09:27 Potassium Chloride Oral Liquid PO 20 meq DAILY VINNIE Administration Tramadol HCl 50 mg 08/02/17 12:36 Ultram - PO Q6H PRN PAIN LEVEL 1-5 ASSESSMENT/PLAN: 1. Acute cholecystitis - Continue Zosyn 2. HTN - On no medication 3. Morbid obesity, recent sleeve gastrectomy 4. Asthma - Stable - Continue Symbicort, Singulair 5. History of DVT 6. Hypokalemia - Improved Visit type - Emergency Visit Emergency Visit: Yes ED Registration Date: 07/28/17 Care time: The patient presented to the Emergency Department on the above date and was hospitalized for further evaluation of their emergent condition. - New Patient This patient is new to me today: Yes Date on this admission: 08/02/17 - Critical Care Critical Care patient: No - Discharge Referral Referred to [facility] Med P.C[facility] No
[2017-08-02] MEDS: MONTELUKAST NA 10 MG TABLET PO SCH (21:51)
[2017-08-03] MEDS ORDERED: PIPERACILLIN/TAZOBACTAM 4.5 GM VIAL IVPB ONE ×3 (00:39→16:44)
[2017-08-03] MEDS ORDERED: DEXTROSE 5%-WATER 100 ML IVPB ONE ×3 (00:40→16:44)
[2017-08-03] MEDS: PIPERACILLIN/TAZOB 4.5 GM 4.5 GM in DEXTROSE 5%-WATER 100 ML IVPB SCH ×3 (01:23→17:20)
[2017-08-03] MEDS: ALBUTEROL SO4 0.083% IH SOL 2.5 MG/3 ML VIAL.NEB. NEB PRN ×3 (03:16→14:57)
[2017-08-03] MEDS: HEPARIN NA (PORCINE) 5,000 UNITS/ML 1ML VIAL SQ SCH ×3 (06:24→21:27)
[2017-08-03 08:16] LABS: HEMATOCRIT 34.8 % (32.4-45.2); HEMOGLOBIN 11.8 GM/dL (10.7-15.3); MCH 29.2 pg (25.7-33.7); MCHC 33.9 g/dl (32.0-36.0); MEAN CELL VOLUME 86.2 fl (80-96); MEAN PLT VOLUME 8.6 fl (7.5-11.1); PLATELET COUNT 279 K/MM3 (134-434); RBC 4.03 M/mm3 (3.60-5.2); RDW 15.4 % (11.6-15.6); WHITE BLOOD COUNT 9.3 K/mm3 (4.0-10.0)
[2017-08-03] MEDS ORDERED: PT OWN MED DRAWER 7, Y5N ONE ×2 (08:52→21:20)
[2017-08-03 08:58] LABS: CHLORIDE 107 mmol/L (98-107); POTASSIUM 3.9 mmol/L (3.5-5.1); SODIUM 143 mmol/L (136-145)
[2017-08-03 09:12] LABS: ALBUMIN 2.9 g/dl (3.4-5.0); ALK PHOS 97 U/L (45-117); ANION GAP 6 (8-16); BILIRUBIN,TOTAL 0.6 mg/dL (0.2-1.0); BLOOD UREA NITROGEN 7 mg/dL (7-18); CALCIUM 8.6 mg/dL (8.5-10.1); CO2 30 mmol/L (21-32); GLUCOSE,RANDOM 100 mg/dL (74-106); SGOT/AST 35 U/L (15-37); SGPT/ALT 28 U/L (12-78); TOT PROT 6.1 g/dl (6.4-8.2)
[2017-08-03] MEDS: POTASSIUM CHLORIDE ORAL LIQUID 20 MEQ/15 ML PO SCH (10:42)
[2017-08-03] MEDS: BUDESONIDE/FORMETEROL FUMARATE 160/4.5 mcg INHALER IH SCH ×2 (10:43→21:45)
--- NOTE | 2017-08-03 12:44 | PN ---
Progress Note (short form) - Note Progress Note: Pt doing better No pain Tolerating PO bland diet WBC-9.3 (decreased) Rec- Discussed at length pt diet Can be D/C home on PO antibiotics, bland diet F/U with me in 7-10 days
--- NOTE | 2017-08-03 16:32 | PN ---
Physical Exam: SUBJECTIVE: Patient seen and examined. She has no complaints. OBJECTIVE: Vital Signs Period Temp Pulse Resp BP Sys/Calloway Pulse Ox Last 24 Hr 98.1 F-98.7 F 73-86 18-20 128-137/73-83 95-97 GENERAL: The patient is awake, alert, and fully oriented, in no acute distress. LUNGS: Breath sounds equal, clear to auscultation bilaterally, no wheezes, no crackles, no accessory muscle use. HEART: Regular rate and rhythm, S1, S2 without murmur, rub or gallop. ABDOMEN: Obese, soft, (+) RUQ tenderness, nondistended, normoactive bowel sounds , no guarding, no rebound, no masses. EXTREMITIES: 2+ pulses, warm, well-perfused, no edema. Laboratory Results - last 24 hr 08/03/17 08/03/17 07:56 07:56 WBC 9.3 RBC 4.03 Hgb 11.8 Hct 34.8 MCV 86.2 MCH 29.2 MCHC 33.9 RDW 15.4 Plt Count 279 MPV 8.6 Sodium 143 Potassium 3.9 Chloride 107 Carbon Dioxide 30 Anion Gap 6 L BUN 7 Creatinine 1.0 Creat Clearance w eGFR 56.37 Random Glucose 100 Calcium 8.6 Total Bilirubin 0.6 D AST 35 ALT 28 Alkaline Phosphatase 97 Total Protein 6.1 L Albumin 2.9 L Active Medications Generic Name Dose Route Start Last Admin Trade Name Freq PRN Reason Stop Dose Admin Albuterol Sulfate 1 - 2 puff 07/28/17 02:49 07/28/17 10:09 Ventolin Hfa Inhaler - IH 2 puff Q4H PRN Administration SHORT OF BREATH/WHEEZING Albuterol Sulfate 1 amp 08/02/17 18:30 08/03/17 14:57 Ventolin 0.083% Nebulizer Soln - NEB 1 amp Q6H PRN Administration SHORT OF BREATH/WHEEZING Budesonide/Formoterol Fumarate 2 puff 07/28/17 10:00 08/03/17 10:43 Symbicort 160/4.5mcg - IH Not Given BID VINNIE Heparin Sodium (Porcine) 5,000 unit 07/28/17 06:00 08/03/17 15:32 Heparin - SQ 5,000 unit TID VINNIE Administration Piperacillin Sod/Tazobactam 100 mls @ 200 mls/hr 07/28/17 15:45 08/03/17 10: 42 Sod 4.5 gm/ Dextrose IVPB 200 mls/hr Q8H-IV VINNIE Administration Protocol Ketorolac Tromethamine 15 mg 07/30/17 18:05 07/30/17 19:43 Toradol Injection - IVPUSH 08/04/17 18:04 15 mg Q6H PRN Administration PAIN LEVEL 7 - 10 Montelukast Sodium 10 mg 07/28/17 22:00 08/02/17 21:51 Singulair - PO 10 mg HS VINNIE Administration Ondansetron HCl 4 mg 07/31/17 22:20 07/31/17 22:33 Zofran Injection IVPUSH 4 mg Q6H PRN Administration NAUSEA Potassium Chloride 20 meq 07/31/17 11:45 08/03/17 10:42 Potassium Chloride Oral Liquid PO 20 meq DAILY VINNIE Administration Tramadol HCl 50 mg 08/02/17 12:36 Ultram - PO Q6H PRN PAIN LEVEL 1-5 ASSESSMENT/PLAN: 1. Acute cholecystitis - Afebrile, WBC and total bili have normalized - Still with significant tenderness on exam - Discussed with ID - will continue Zosyn and reevaluate in am 2. HTN - On no medication 3. Morbid obesity, recent sleeve gastrectomy 4. Asthma - Stable - Continue Symbicort, Singulair 5. History of DVT 6. Hypokalemia - Improved Visit type - Emergency Visit Emergency Visit: Yes ED Registration Date: 07/28/17 Care time: The patient presented to the Emergency Department on the above date and was hospitalized for further evaluation of their emergent condition. - New Patient This patient is new to me today: No - Critical Care Critical Care patient: No - Discharge Referral Referred to [facility] Med [facility] No
[2017-08-03] MEDS: MONTELUKAST NA 10 MG TABLET PO SCH (21:27)
[2017-08-04] MEDS ORDERED: PIPERACILLIN/TAZOBACTAM 4.5 GM VIAL IVPB ONE ×2 (01:50→09:13)
[2017-08-04] MEDS ORDERED: DEXTROSE 5%-WATER 100 ML IVPB ONE ×2 (01:51→09:13)
[2017-08-04] MEDS: PIPERACILLIN/TAZOB 4.5 GM 4.5 GM in DEXTROSE 5%-WATER 100 ML IVPB SCH ×2 (01:54→09:38)
[2017-08-04] MEDS: HEPARIN NA (PORCINE) 5,000 UNITS/ML 1ML VIAL SQ SCH (06:11)
--- NOTE | 2017-08-04 08:51 | DS ---
Physical Examination Vital Signs: Vital Signs Temperature 98.0 F 08/04/17 06:00 Pulse Rate 74 08/04/17 06:00 Respiratory Rate 20 08/04/17 06:00 Blood Pressure 111/54 08/04/17 06:00 O2 Sat by Pulse Oximetry (%) 95 08/03/17 21:00 Findings/Remarks: AWAKE ALERT EATING BREAKFAST NO PAIN, DENIES N/V I SPENT 20 MINS REVIEWING LOW FAT DIET Constitutional: Yes: No Distress Eyes: Yes: WNL HENT: Yes: WNL Neck: Yes: WNL Cardiovascular: Yes: WNL Respiratory: Yes: WNL Gastrointestinal: Yes: WNL Renal/: Yes: WNL Musculoskeletal: Yes: WNL Extremities: Yes: WNL Edema: Yes Edema: LLE: 1+, RLE: 1+ Peripheral Pulses WNL: Yes Integumentary: Yes: WNL Wound/Incision: Yes: Clean/Dry Neurological: Yes: WNL ...Motor Strength: WNL Psychiatric: Yes: WNL Labs: CBC, BMP 08/03/17 07:56 08/03/17 07:56 Discharge Summary Reason For Visit: CHEST PAIN SHORT STAY Current Active Problems Abdominal pain (Acute) Chest pain (Acute) Cholecystitis (Acute) Cholelithiasis (Acute) Procedures: Principal: NUCLEAR HIDA OF GALLBLADDER Hospital Course: ADMITTED FOR ACUTE CHOLCYSTITIS TREATED WITH IV ABX, SURGICAL WORKUP NO NEED FOR CHALCYSTECTOMY AT THIS TIME. LOW FAT DIET, ABX PO AND OUTPATIENT FOLLOW UP. Condition: Stable - Instructions Diet, Activity, Other Instructions: LOW FAT DIET DISCUSSED WITH PATIENT F/U WITH DR MARTIN 10 DAYS Referrals: Edith Durant [Primary Care Provider] - Disposition: HOME - Home Medications Comprehensive Discharge Medication List: Ambulatory Orders Montelukast Na [Singulair -] 10 mg PO HS #0 tablet 01/03/13 Albuterol 0.083% Nebulizer Lorna [Ventolin 0.083% Nebulizer Soln -] 1 neb NEB Q4H PRN 06/11/17 Albuterol Sulfate Inhaler - [Ventolin HFA Inhaler -] 1 - 2 inh PO Q4H PRN Advair 500/50 1 puff IH BID 07/03/17 Oxycodone HCl/Acetaminophen [Percocet 5-325 mg Tablet] 1 tab PO Q6H PRN #20 tablet MDD 4 08/03/17 Ursodiol [Actigall] 300 mg PO BID #60 capsule MDD 2 08/03/17
[2017-08-04] MEDS: POTASSIUM CHLORIDE ORAL LIQUID 20 MEQ/15 ML PO SCH (09:38)
[2017-08-04] MEDS: BUDESONIDE/FORMETEROL FUMARATE 160/4.5 mcg INHALER IH SCH (09:38)
--- NOTE | 2017-08-04 09:40 | PN ---
Progress Note (short form) - Note Progress Note: DISCUSSED WITH DR MARTIN FROM SURGERY , PATIENT HAD A DIFFICULT RECOVERY FROM HER SLEEVE GASTRECTOMY LESS THAN [address] MARTIN IS PLANNING TO PERFORM LAPCHOL WITH IN THE NEXT 4-6 WEEKS ONCE PATIENT IS STRONGER AND BETTER NOURISHED BEFORE TAKING HER BACK TO THE OPERATING ROOM. WE WILL SEND HER HOME ON STRICT BLAND DIET, PO CEFTIN/FLAGYULL FOR 10 DAYS. WEEKLY VISITS WITH HER PMD DR MARTINEZ, I HAVE LEFT MESSAGE WITH DR MARTINEZ TO CHECK LABS WEEKLY ON PATIENT SQUIRE. Problem List - Problems (1) Abdominal pain Code(s): R10.9 - UNSPECIFIED ABDOMINAL PAIN (2) Cholelithiasis Code(s): K80.20 - CALCULUS OF GALLBLADDER W/O CHOLECYSTITIS W/O OBSTRUCTION (3) Benign essential hypertension Code(s): I10 - ESSENTIAL (PRIMARY) HYPERTENSION (4) S/P laparoscopic sleeve gastrectomy Code(s): Z98.84 - BARIATRIC SURGERY STATUS
[2017-08-04 12:16] VITALS: BP 128/79; PULSE 83; TEMP 98.4
== END 2017-08-04 12:07 | disposition home or self-care (01) | DRG 445 ==
LOC: JER 17:17 → JERBED 23:05 → OBSVTOIN 07-28 09:34 → J4S 07-28 14:00
PROVIDERS: ADMIT Internal Medicine; ATTEND Family Medicine
DX: K80.42 Calculus of bile duct with acute cholecystitis without obstruction (principal); Z68.41 Body mass index [BMI] 40.0-44.9, adult; E66.01 Morbid (severe) obesity due to excess calories; J45.909 Unspecified asthma, uncomplicated; I10 Essential (primary) hypertension; Z98.84 Bariatric surgery status; Z87.891 Personal history of nicotine dependence; Z86.718 Personal history of other venous thrombosis and embolism; E87.6 Hypokalemia; I44.0 Atrioventricular block, first degree
CPT/HCPCS: 36415; 71046-TC-FY; 71275-TC; 76705-TC; 78226-TC; 80048; 80053; 82248; 82550; 83036; 83735; 83880; 84100; 84484; 85025; 85027; 85379; 85610; 85730; 86850; 86900; 86901; 87040; 93005; 93010; 93306-TC; 94640; 97116-GP; 97161-GP; 99283-25; A9537; G0378; J0131; J1644

== ENCOUNTER 2017-11-19 09:51 | Day surgery (SDC) | payer BC, OTHER ==
[2017-11-19] MEDS ORDERED: PROPOFOL 20 ML ONE ×2 (10:03)
[2017-11-19] MEDS ORDERED: LIDOCAINE HCL/PF 2% SDV 5ML VIAL ONE (10:04)
[2017-11-19 10:40] VITALS: BMI 35.5
[2017-11-19 11:40] VITALS: TEMP 97.6
[2017-11-19 14:16] VITALS: BP 139/74; PULSE 74
--- NOTE | 2017-11-20 17:01 | PATH ---
Surgical Pathology Report Patient Name: ASHISH NGO [facility]. Rec. #: [id number] /Age/Gender: 1955 (Age: 62) / F Account: [id number] Location: U-ENDOSCOPY Taken: 11/19/2017 Received: 11/19/2017 Reported: 11/20/2017 Physicians: Mami Krishna M.D. Specimen(s) Received A: BX DUODENUM B: BX ANTRUM C: BX GE JUNCTION Clinical History GI bleed Postoperative diagnosis: Rule out celiac disease, gastritis, rule out Cohn's Final Diagnosis A. DUODENUM, BIOPSY: SMALL BOWEL MUCOSA WITHOUT SIGNIFICANT PATHOLOGIC FINDINGS. B. STOMACH, ANTRUM, BIOPSY: GASTRIC ANTRAL MUCOSA WITH MILD CHRONIC GASTRITIS. IMMUNOHISTOCHEMICAL STAIN FOR H. PYLORI IS NEGATIVE. C. GE JUNCTION, BIOPSY: SQUAMOUS MUCOSA WITH VASCULAR CONGESTION, BASAL CELL HYPERPLASIA, AND CHANGES CONSISTENT WITH MODERATE REFLUX ESOPHAGITIS. NO COLUMNAR MUCOSA, INTESTINAL METAPLASIA OR DYSPLASIA IDENTIFIED. Electronically Signed Mami Carter M.D. Gross Description A. Received in formalin, labeled "duodenum" are 2 graf, irregular portions of soft tissue measuring 0.2 and 0.3 cm. in greatest dimension. The specimens are submitted in toto in one cassette. B. Received in formalin, labeled "antrum" are 2 graf, irregular portions of soft tissue measuring 0.3 and 0.4 cm. in greatest dimension. The specimens are submitted in toto in one cassette. C. Received in formalin, labeled "GE junction" is a graf, irregular portion of soft tissue measuring 0.7 cm. in greatest dimension. The specimen is submitted in toto in one cassette. /11/19/2017 saudi11/19/2017
== END 2017-11-19 12:20 | disposition home or self-care (01) ==
LOC: FASU-ENDO 09:51
PROVIDERS: ATTEND Internal Medicine Gastroenterology
PROC: 0DB58ZX Excision of Esophagus, Via Natural or Artificial Opening Endoscopic, Diagnostic (ICD-10-PCS; principal; 2017-11-19 11:07)
PROC: 0DB68ZX Excision of Stomach, Via Natural or Artificial Opening Endoscopic, Diagnostic (ICD-10-PCS; 2017-11-19 11:07)
DX: D64.9 Anemia, unspecified (principal); K29.50 Unspecified chronic gastritis without bleeding; K21.0 Gastro-esophageal reflux disease with esophagitis; Z98.84 Bariatric surgery status
CPT/HCPCS: 88305-TC; 88342-TC

== ENCOUNTER 2017-12-25 10:24 | Inpatient (IN) | payer BC ==
[2017-12-24 12:28] VITALS: BMI 35.4
[~2017-12-25 10:24] MED LIST: BUPIVACAINE HCL/PF 0.25% (2.5MG/ML) 10 ML VIAL IJ ONE
[2017-12-25] MEDS ORDERED: LIDOCAINE HCL/PF 2% SDV 5ML VIAL ONE (11:08)
[2017-12-25] MEDS ORDERED: MIDAZOLAM HCL 2 MG/2 ML SINGLE DOSE VIAL ONE (11:08)
[2017-12-25] MEDS ORDERED: PROPOFOL 20 ML ONE ×2 (11:08→12:47)
[2017-12-25] MEDS ORDERED: ROCURONIUM BROMIDE 50 MG/5 ML VIAL ONE (11:08)
[2017-12-25] MEDS ORDERED: SUCCINYLCHOLINE CHLORIDE 200 MG/10 ML VIAL ONE (11:08)
[2017-12-25] MEDS ORDERED: DESFLURANE GAS 240 ML BOTTLE IH ONE (11:21)
[2017-12-25] MEDS ORDERED: BUPIVACAINE HCL/PF 0.25% (2.5MG/ML) 10 ML VIAL ONE (11:56)
[2017-12-25] MEDS ORDERED: ceFAZolin 2 GRAM PREMIX BAG IVPB ONE (12:08)
[2017-12-25] MEDS ORDERED: ceFAZolin SODIUM 1 GM VIAL ONE (12:24)
[2017-12-25] MEDS ORDERED: HYDROCORTISONE SOD SUCCINATE 2 ML ONE (12:34)
[2017-12-25] MEDS ORDERED: GLYCOPYRROLATE 0.2 MG/1 ML VIAL ONE (13:46)
[2017-12-25] MEDS ORDERED: NEOSTIGMINE METHYLSULFATE 0.5 MG/ML - 10 ML MDV ONE (13:46)
[2017-12-25] MEDS ORDERED: KETOROLAC TROMETHAMINE 30 MG/1 ML VIAL ONE (16:08)
[2017-12-25] MEDS ORDERED: ONDANSETRON 4 MG/2 ML VIAL IVPUSH PRN (16:30)
[2017-12-25] MEDS ORDERED: SODIUM CHLORIDE 1,000 ML IV SCH (16:30)
--- NOTE | 2017-12-25 16:37 | OP ---
Operative Note - Note: Operative Date: 12/25/17 Pre-Operative Diagnosis: Cholelithiasis with chronic cholecystitis. Asthma Operation: Laparoscopic Cholecystectomy. Diagnostic Laparoscopy Findings: Enlarged gallbladder with impacted gallstone Post-Operative Diagnosis: Same as Pre-op Surgeon: Salas Farrell Insurance Claims Adjuster: Ranjan Sandhu Anesthesia: General Specimens Removed: Gallbladder Estimated Blood Loss (mls): 30 Operative Report Dictated: Yes
[2017-12-25] MEDS ORDERED: ALBUTEROL SO4 8 GM HFA INHALER IH PRN (16:57)
[2017-12-25] MEDS ORDERED: oxyCODONE HCL 5 MG TABLET PO PRN (17:19)
--- NOTE | 2017-12-25 18:10 | OP ---
DATE OF OPERATION: 12/25/2017 PREOPERATIVE DIAGNOSIS: 1. Cholelithiasis with chronic cholecystitis. 2. Asthma. POSTOPERATIVE DIAGNOSIS: 1. Cholelithiasis with chronic cholecystitis. 2. Asthma. PROCEDURE PERFORMED: 1. Laparoscopic cholecystectomy. 2. Diagnostic laparoscopy. OPERATING SURGEON: Salas Farrell M.D. WIRE BENDER HAND: Ranjan Sandhu M.D. ANESTHESIA: General. DESCRIPTION OF PROCEDURE: Patient was brought to the operating room, laced on the OR table in a supine position. All precautions were taken initially including padding for the back and the feet, and Venodyne boots were placed on both lower extremities. At that point, the abdomen was prepped and draped in the usual manner. A Veress needle was placed in the left upper quadrant, and pneumoperitoneum was established. A number 5 bladeless trocar was then placed in the left upper quadrant and through that trocar laparoscopic camera was placed. Under direct vision, a number 11 bladeless trocar was placed in the midline just above the umbilicus and this was followed by a number 11 bladeless trocar in the midline just to the right of the falciform below the xiphoid. This was then followed by two 5 bladeless trocars in the right upper quadrant. At that point the patient was placed in partial reverse Trendelenburg and rotated the patient to the left side. The communications assistant surgeon was able to retract the gallbladder over the liver, and the operating surgeon then directed dissection to the inferior portion of the gallbladder. The gallbladder wall was noted, and the tissue just in the triangle of Calot was dissected, and this was done until good skeletonization was noted. The gallbladder was then turned to the other side by the communications assistant, and the operating surgeon then continued the dissection on that time, with attempts of isolating the cystic duct and the cystic artery. The gallbladder and cystic duct junction were then visualized, and dissection continued in order to avoid injury to other structures. The cystic artery was noted, and this was then dissected from all surrounding tissue, and 2 clips were placed distally and 1 proximally, and the cystic artery was transected. This allowed further dissection to continue along the gallbladder wall until the gallbladder in the inferior portion was lifted up off the liver bed and essentially only some tissue surrounding the cystic duct, gallbladder junction remained. Dissection continued behind the cystic duct until it was made just at the cystic duct gallbladder junction. This was noted to be a safe distance away from the cystic duct common duct junction. Two clips were now placed distally, and one clip was placed proximally at the edge of the cystic duct and gallbladder. The cystic duct was then transected, and at that point the gallbladder was dissected off the liver bed with electrocautery. This was done until the entire gallbladder was removed, and the gallbladder then was removed through the EndoCatch and brought out of the supraumbilical port site. At that point the liver was lifted up and irrigated. There was 1 or 2 very minor points of bleeding which were easily controlled with electrocautery, and then irrigation and suction was done in the right upper quadrant until the entire right upper quadrant was cleaned. Under direct vision, all trocars were removed, and pneumoperitoneum was released. The number 15, number 11 trocar sites were then closed with number 1 Vicryl to close the fascia completely, and in this same site the subcutaneous tissue was closed with 3-0 Vicryl . All trocars then received 0.25% Marcaine and closed with 4-0 Biosyn in subcuticular fashion. Dressings were applied. The patient was awakened from anesthesia and transferred out of the operating room into the recovery room in stable condition. Anesthesia for this case was general. Surgeon Dr. Farrell. Parent Aide Dr. Ranjan Sandhu. Expected blood loss was 30 mL. Patient transferred to recovery room in stable condition. Victoria [id number]
[2017-12-25 18:46] LABS: HEMATOCRIT 39.9 % (32.4-45.2); MCH 29.7 pg (25.7-33.7); MCHC 32.5 g/dl (32.0-36.0); MEAN CELL VOLUME 91.3 fl (80-96); MEAN PLT VOLUME 9.8 fl (7.5-11.1); PLATELET COUNT 225 K/MM3 (134-434); RBC 4.37 M/mm3 (3.60-5.2); RDW 14.6 % (11.6-15.6); WHITE BLOOD COUNT 17.1 K/mm3 (4.0-10.0)
[2017-12-25 19:03] LABS: ALBUMIN 3.3 g/dl (3.4-5.0); ALK PHOS 88 U/L (45-117); ANION GAP 9 MMOL/L (8-16); BILIRUBIN,TOTAL 0.4 mg/dL (0.2-1); BLOOD UREA NITROGEN 27 mg/dL (7-18); CHLORIDE 108 mmol/L (98-107); CO2 26 mmol/L (21-32); CREATININE 1.4 mg/dL (0.55-1.3); GLUCOSE,RANDOM 131 mg/dL (74-106); POTASSIUM 4.7 mmol/L (3.5-5.1); SGOT/AST 40 U/L (15-37); SGPT/ALT 33 U/L (13-61); SODIUM 143 mmol/L (136-145); TOT PROT 6.2 g/dl (6.4-8.2)
[2017-12-25] MEDS: ENOXAPARIN NA (PORCINE) 40 MG/0.4 ML DISP.SYRIN SQ SCH (22:08)
[2017-12-25] MEDS: FAMOTIDINE 20 MG/50 ML IVPB 20 MG/50 ML MG IVPB SCH (22:08)
[2017-12-26] MEDS: oxyCODONE HCL 5 MG TABLET PO PRN ×3 (02:05→19:54)
--- NOTE | 2017-12-26 07:59 | PN ---
Progress Note (short form) - Note Progress Note: Pt seen and examined. States she is doing "okay" this morning, has some pain at the incision sites, relieved by PO meds. No issues overnight. Tolerated water without n/v. Has been oob to the bathroom, +TOV. Denies cp/sob, n/v/d, calf pain /edema. Vital Signs Temp 98.6 F 12/26/17 06:00 Pulse 62 12/26/17 06:00 Resp 20 12/26/17 06:00 BP 113/57 L 12/26/17 06:00 Pulse Ox 100 12/25/17 19:30 Intake & Output 12/25/17 12/25/17 12/26/17 11:59 23:59 11:59 Intake Total 0 450 1775 Output Total 450 Balance 0 450 1325 Weight 240 lb 248 lb 3.2 oz 252 lb 6 oz Intake: IV 0 450 1725 Normal Saline - 1,000 ml 1725 @ 150 mls/hr IV ASDIR VINNIE Rx#:[id number] IVPB 50 Output: Urine 450 Void 450 Other: Weight Measurement Method [facility]: awake, alert, nad Resp: CTA b/l CV: rrr, s1s2 Abdo: soft, nt/nd, bandaids in place x 5, no surrounding ecchymosis or palpable hematomas appreciated Ext: b/l les without edema or calf tenderness. 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 Afebrile, vss, doing well this AM, pain controlled, tolerating PO, has been oob. labs pending Advance diet Pain control as ordered DVT prophylaxis with Lovenox 40mg bid, b/l SCDS, b/l TEDS GI prophylaxis as ordered Monitor VS Monitor I&Os OOB ad alisia Incentive spirometry Likely d/c later today pending attending eval and pain control
[2017-12-26 08:05] LABS: HEMATOCRIT 35.4 % (32.4-45.2); HEMOGLOBIN 11.7 GM/dL (10.7-15.3); MCH 30.2 pg (25.7-33.7); MCHC 33.2 g/dl (32.0-36.0); MEAN CELL VOLUME 91.1 fl (80-96); MEAN PLT VOLUME 9.3 fl (7.5-11.1); PLATELET COUNT 189 K/MM3 (134-434); RBC 3.88 M/mm3 (3.60-5.2); RDW 14.4 % (11.6-15.6); WHITE BLOOD COUNT 10.6 K/mm3 (4.0-10.0)
[2017-12-26 09:10] LABS: ALBUMIN 2.7 g/dl (3.4-5.0); ALK PHOS 92 U/L (45-117); ANION GAP 7 MMOL/L (8-16); BILIRUBIN,TOTAL 0.7 mg/dL (0.2-1); BLOOD UREA NITROGEN 22 mg/dL (7-18); CALCIUM 8.2 mg/dL (8.5-10.1); CHLORIDE 111 mmol/L (98-107); CO2 27 mmol/L (21-32); CREATININE 1.1 mg/dL (0.55-1.3); GLUCOSE,RANDOM 83 mg/dL (74-106); POTASSIUM 4.1 mmol/L (3.5-5.1); SGOT/AST 83 U/L (15-37); SGPT/ALT 44 U/L (13-61); SODIUM 145 mmol/L (136-145); TOT PROT 5.2 g/dl (6.4-8.2)
[2017-12-26] MEDS: ENOXAPARIN NA (PORCINE) 40 MG/0.4 ML DISP.SYRIN SQ SCH ×2 (09:17→21:41)
[2017-12-26] MEDS: FAMOTIDINE 20 MG/50 ML IVPB 20 MG/50 ML MG IVPB SCH ×2 (09:17→21:41)
[2017-12-26] MEDS: ACETAMINOPHEN 325 MG TABLET (FP) PO PRN ×2 (09:17→19:53)
--- NOTE | 2017-12-26 11:37 | PROC ---
Procedure Note Procedure: POD#1 Afebrile;VSS Pt doing well C/O occasionally incisional pain No N/V P/E- Abd- all trocar sites clean, dry no swelling noted WBC-10.6 H/H-11.7/35.4 LFT-all WNL except AST slightle elevated P- Encourage ambulation, deep breathing, incentive Cont DVT prophylaxis Re-start IV and continue with IV fluids plus PO (pt with history of dehydration after surgery)
[2017-12-26] MEDS: SODIUM CHLORIDE 1,000 ML IV SCH ×2 (15:56→19:55)
[2017-12-26] MEDS ORDERED: MONTELUKAST NA 10 MG TABLET PO SCH (22:00)
[2017-12-26] MEDS: METHYL SALICYLATE/MENTHOL OINT 30 GM TUBE TP SCH (22:48)
[2017-12-27] MEDS: METHYL SALICYLATE/MENTHOL OINT 30 GM TUBE TP SCH ×2 (05:52→13:16)
[2017-12-27] MEDS: ACETAMINOPHEN 325 MG TABLET (FP) PO PRN ×2 (05:56→11:42)
[2017-12-27 08:36] VITALS: BP 129/72; PULSE 60; TEMP 98.6
[2017-12-27] MEDS: ENOXAPARIN NA (PORCINE) 40 MG/0.4 ML DISP.SYRIN SQ SCH (08:59)
[2017-12-27] MEDS: FAMOTIDINE 20 MG/50 ML IVPB 20 MG/50 ML MG IVPB SCH (08:59)
[2017-12-27] MEDS ORDERED: PT OWN MED DRAWER 7, Y5N ONE (13:06)
--- NOTE | 2017-12-27 13:14 | PN ---
Progress Note (short form) - Note Progress Note: POD#2 Afebrile; VSS Pt doing well No N/V Tolerating soft diet well P/E- all trocar sites clean, dry P- D/C pt home May advance to PO regular diet-4-6 oz per meal All instructions given to pt F/U in 12 days
--- NOTE | 2017-12-27 13:47 | DS ---
DATE OF ADMISSION: 12/25/2017 DATE OF DISCHARGE: 12/27/2017 HISTORY OF PRESENT ILLNESS AND HOSPITAL COURSE: The patient is a 62-year-old woman who presented to [facility] with a history of right upper quadrant pain and diagnosis of cholelithiasis. She was admitted to [facility] on December 25, 2017, for elective laparoscopic cholecystectomy surgery. The details of the procedure are described in the operative note of that day. Postoperatively, the patient was sent to the recovery room, where she was stabilized and then sent to [address] [place] [address]. On the [address] [place] [address] floor, the patient did well, with normal vital signs and her lab values were normal both after surgery and also the following morning, on the . On the , the patient was tolerating a soft diet, but she was having difficulty ambulating with her history of lower extremity problems and walking with a walker. She improved throughout the day, as did her appetite and her strength. The patient was also watched carefully for her history of asthma, which was severe, requiring steroids prior to surgery. In the hospital, she received her inhalers and Singulair, and she did well. On the morning of December 27, 2017, with the patient ambulating better, tolerating a 4 to 6-ounce meal throughout the day and on her asthma medications as normal, she was given instructions to be discharged home and also instructed to follow up with the bariatric service in 12 days. ANGIE MARTIN M.D. [id number]
--- NOTE | 2017-12-29 16:52 | PATH ---
Surgical Pathology Report Patient Name: ASHISH NGO [facility]. Rec. #: [id number] /Age/Gender: 1955 (Age: 62) / F Account: [id number] Location: [address] [place] [address]/[facility] Taken: 12/25/2017 Received: 12/26/2017 Reported: 12/29/2017 Physicians: Salas Farrell M.D. Specimen(s) Received GALLBLADDER AND CONTENTS Clinical History Cholelithiasis Final Diagnosis GALLBLADDER, LAPAROSCOPIC CHOLECYSTECTOMY: ACUTE AND CHRONIC CHOLECYSTITIS WITH CHOLELITHIASIS. Electronically Signed Mami Carter M.D. Gross Description Received in formalin, labeled "gallbladder and contents," is a 9.5 x 3.0 x 2.5 cm. gallbladder with a 0.2 cm. in length portion of cystic duct attached. The outer surface is graf-terrazas and varies from smooth to shaggy. The lumen contains graf, mucinous bile as well as a 3.0 cm in greatest dimension brown, ovoid cholelith. The mucosa is graf and entirely eroded. There are submucosal cystic spaces containing smaller choleliths present. The wall of the gallbladder ranges from 0.1-0.4 cm. in thickness. Mri Tech sections are submitted in one cassette. 12/26/2017 [facility]12/26/2017
== END 2017-12-27 15:04 | disposition home or self-care (01) | DRG 419 ==
LOC: JASU-SURG 10:24 → JSAMEDAYSX 16:30 → J6S 20:24 → JERBED 21:23 → J6S 21:24
PROVIDERS: ADMIT Surgery; ATTEND Surgery
PROC: 0FT44ZZ Resection of Gallbladder, Percutaneous Endoscopic Approach (ICD-10-PCS; principal; 2017-12-25 11:30)
DX: K80.10 Calculus of gallbladder with chronic cholecystitis without obstruction (principal); J45.909 Unspecified asthma, uncomplicated; E66.01 Morbid (severe) obesity due to excess calories; Z68.35 Body mass index [BMI] 35.0-35.9, adult
CPT/HCPCS: 36415; 74018-TC-FY; 80053; 85027; 88304-TC; 94760; J7030

== ENCOUNTER 2018-06-10 09:15 | Day surgery (SDC) | payer OTHER, BC ==
[2018-06-10] MEDS ORDERED: LIDOCAINE HCL/PF 2% SDV 5ML VIAL ONE (09:45)
[2018-06-10] MEDS ORDERED: PROPOFOL 20 ML ONE ×3 (09:45→10:38)
[2018-06-10 09:59] VITALS: BMI 33.3
[2018-06-10 11:03] VITALS: TEMP 98.2
[2018-06-10 11:40] VITALS: BP 114/52; PULSE 72
--- NOTE | 2018-06-12 17:18 | PATH ---
Surgical Pathology Report Patient Name: ASHISH NGO [facility]. Rec. #: [id number] /Age/Gender: 1955 (Age: 63) / F Account: [id number] Location: [facility] Taken: 06/10/2018 Received: 06/10/2018 Reported: 06/12/2018 Physicians: Mami Krishna M.D. Specimen(s) Received CECUM Clinical History Anemia Postoperative diagnosis: Colon polyp, diverticulosis, hemorrhoids, redundant colon Final Diagnosis CECAL POLYP, BIOPSY: COLONIC MUCOSA WITH FOCAL SURFACE HYPERPLASTIC CHANGE. Electronically Signed Jaquan Li M.D. Gross Description Received in formalin, labeled "biopsy polyp cecum" is a graf, irregular portion of soft tissue measuring 0.4 cm. in greatest dimension. The specimen is submitted in toto in one cassette. 06/11/2018 [facility]06/11/2018
== END 2018-06-10 11:43 | disposition home or self-care (01) ==
LOC: FASU-ENDO 09:15
PROVIDERS: ATTEND Internal Medicine Gastroenterology
PROC: 0DBH8ZX Excision of Cecum, Via Natural or Artificial Opening Endoscopic, Diagnostic (ICD-10-PCS; principal; 2018-06-10 10:21)
DX: D64.9 Anemia, unspecified (principal); D12.0 Benign neoplasm of cecum; K64.8 Other hemorrhoids; Q43.8 Other specified congenital malformations of intestine
CPT/HCPCS: 88305-TC

== ENCOUNTER 2018-09-26 18:19 | Emergency (ER) | payer OTHER, BC ==
[2018-09-26 18:27] VITALS: BP 123/78; PULSE 69; TEMP 98.1; BMI 34.0
--- NOTE | 2018-09-26 18:45 | PDOC ---
History of Present Illness - General Chief Complaint: Pain Stated Complaint: RT KNEE INJURY Time Seen by Provider: 09/26/18 18:26 History Source: Patient Exam Limitations: No Limitations (R knee pain s/p twisted knee 5 days ago) Past History - Travel Traveled outside of the country in the last 30 days: No - Past Medical History Allergies/Adverse Reactions: Allergies Allergy/AdvReac Type Severity Reaction Status Date / Time erythromycin base Allergy Intermediate Hives Verified 09/26/18 18:24 [Erythromycin Base] Home Medications: Ambulatory Orders Albuterol Sulfate Inhaler - [Ventolin HFA Inhaler -] 1 - 2 inh PO PRN PRN Ascorbic Acid/Vitamin E/Biotin [Hair Skin Nails-Biotin Gummies] 1 each PO DAILY 12/25/17 Budesonide/Formeterol Fumarate [SYMBICORT 160/4.5mcg -] 1 inh PO BID 12/25/17 Montelukast Sodium [Singulair] 10 mg PO HS 12/25/17 Acetaminophen [Tylenol -] 1,000 mg PO Q6H PRN 06/05/18 Calcium Carbonate/Vitamin D3 [Calcium 500 mg Chewable Tablet] 1 tab PO DAILY Cholecalciferol (Vitamin D3) [Vitamin D3] 1,000 unit PO DAILY 06/05/18 Cyclobenzaprine HCl [Flexeril 10 mg] 10 mg PO PRN PRN 06/05/18 Diclofenac Epolamine [Flector] 1 each TD PRN PRN 06/05/18 Multivitamins [Tab-A-Vit -] 1 tab PO DAILY 06/05/18 Tramadol HCl 50 mg PO PRN PRN 06/05/18 Turmeric 400 mg PO DAILY 06/05/18 Diclofenac Sodium [Pennsaid] 112 gm TP DAILY 06/08/18 Hyaluronate Sodium [Orthovisc] 30 mg IU WEEKLY 06/08/18 Anemia: No Asthma: Yes (DX ADULT- ENVIROMENTAL) Cancer: No Cardiac Disorders: No ("STATES HARD HEART" PER HER HYDROTECHNICAL SPECIALIST DUE TO YEARS OF ELEVATED BP) CVA: No COPD: Yes CHF: No DVT: Yes Dementia: No Diabetes: No GI Disorders: No Disorders: No HTN: Yes (HX - NO MEDS SINCE WT LOSS) Hypercholesterolemia: No Liver Disease: No Seizures: No Thyroid Disease: No (and 07/25) - Surgical History Abdominal Surgery: Yes (GASTRIC SLEEVE 06/02/17-STATES "9O POUNDS" REGARDING WEIGHT LOSS) Appendectomy: No Cardiac Surgery: No Cholecystectomy: Yes (GENA DUFF-2017) Lung Surgery: No Neurologic Surgery: No Orthopedic Surgery: No - Immunization History Immunization Up to Date: Yes - Suicide/Smoking/Psychosocial Hx Smoking Status: No Smoking History: Never smoked Have you smoked in the past 12 months: No Number of Cigarettes Smoked Daily: 20 If you are a former smoker, when did you quit?: 30 years ago Cigars Per Day: 0 'Breaking Loose' booklet given: 07/28/17 Hx Alcohol Use: No Drug/Substance Use Hx: No Substance Use Type: None Hx Substance Use Treatment: No Review of Systems - Review of Systems Constitutional: No: Chills, Fever Musculoskeletal: Yes: Joint Pain (Knee pain--R ), Joint Swelling. No: Muscle Weakness *Physical Exam - Vital Signs Last Vital Signs Temp Pulse Resp BP Pulse Ox 98.1 F 69 18 123/78 99 09/26/18 18:20 09/26/18 18:20 09/26/18 18:20 09/26/18 18:20 09/26/18 18:20 - Physical Exam General Appearance: Yes: Nourished Extremity: positive: Normal Capillary Refill, Tender (R knee: tenderness in anterior knee, FROM but painful, distal pulses intact), Other (pt ambulating with a 4 wheel walker--she usually ambulates with it) Neurologic: positive: livestock [employer] II-XII NML intact, Fully Oriented, Alert, Normal Mood/ Affect, Normal Response, Motor Strength / ED Treatment Course - RADIOLOGY Radiology Studies Ordered: Category Date Time Status KNEE 3 POS-RIGHT [RAD] Stat Radiology 09/26/18 18:37 Ordered Medical Decision Making - Medical Decision Making 63y/o F with R knee pain after twisting leg while breaking a fall 5 days ago she denies LOC or head trauma + tenderness in R knee pt cannot have nsaids due to recent gastric sleeve bypass xray ordered prelim xray neg knee immobilizer given ortho f/u 09/26/18 19:19 *DC/Admit/Observation/Transfer Diagnosis at time of Disposition: Knee pain, right Qualifiers: Chronicity: acute Qualified Code(s): M25.561 - Pain in right knee - Discharge Dispostion Disposition: HOME Condition at time of disposition: Stable - Referrals Referrals: Edith Durant [Primary Care Provider] - Ranjan Heath MD [Staff Physician] - - Patient Instructions Printed Discharge Instructions: DI for Knee Pain Additional Instructions: Your preliminary xray was negative for acute fracture or dislocation If the official reports reads otherwise you will be contacted There is some arthritic changes noted Please follow up with orthopedic for further evaluation take Tylenol for pain Return to the ER if worsening symptoms occurs - Post Discharge Activity
== END 2018-09-26 19:09 | disposition home or self-care (01) ==
LOC: JERFT 18:19
DX: M25.561 Pain in right knee (principal); Z72.0 Tobacco use; Z98.84 Bariatric surgery status; I10 Essential (primary) hypertension; E07.9 Disorder of thyroid, unspecified
CPT/HCPCS: 73562-TC-RT-FY; 99281-25

== ENCOUNTER 2022-04-10 10:35 | Inpatient (IN) | payer OTHER, BC ==
[2022-04-10] MEDS ORDERED: morphine CARPU-JECT 4 MG/1 ML DISP.SYRIN IVPUSH ONE ×2 (11:54→18:25)
[2022-04-10] MEDS ORDERED: ONDANSETRON 4 MG/2 ML VIAL IVPUSH ONE (12:19)
[2022-04-10] MEDS ORDERED: morphine SULFATE 4 MG/ML VIAL ONE ×2 (12:25→18:43)
[2022-04-10] MEDS ORDERED: ONDANSETRON 4 MG/2 ML VIAL ONE ×2 (12:26→18:46)
[2022-04-10 12:59] LABS: BASO % 0.6 % (0-2.0); EOS % 3.3 % (0-4.5); HEMATOCRIT 41.7 % (32.4-45.2); HEMOGLOBIN 14.1 GM/dL (10.7-15.3); LYMPH % 23.4 % (8-40); MCH 30.2 pg (25.7-33.7); MCHC 33.8 g/dl (32.0-36.0); MEAN CELL VOLUME 89.4 fl (80-96); MEAN PLT VOLUME 8.9 fl (7.5-11.1); MONO % 5.7 % (3.8-10.2); PLATELET COUNT 287 10^3/uL (134-434); RBC 4.66 M/mm3 (3.60-5.2); RDW 14.3 % (11.6-15.6); WHITE BLOOD COUNT 11.1 K/mm3 (4.0-10.0)
[2022-04-10 13:03] LABS: EPI CELLS 33 /uL (0-25.1); HYALINE CASTS 2 /uL (0-3.1); URINE APPEARANCE CLEAR; URINE BACTERIA 528 /uL (0-1359); URINE BILIRUBIN NEGATIVE (NEGATIVE); URINE COLOR YELLOW; URINE GLUCOSE (UA) NEGATIVE (NEGATIVE); URINE KETONE TRACE (NEGATIVE); URINE LEUK ESTERASE 2+ (NEGATIVE); URINE NITRITE NEGATIVE (NEGATIVE); URINE PROTEIN NEGATIVE (NEGATIVE); URINE RBC 39 /uL (0-23.9); URINE UROBILINOGEN 0.2 mg/dL (0.2-1.0); URINE WBC 96 /uL (0-25.8)
[2022-04-10 13:17] LABS: CALCIUM 9.6 mg/dL (8.5-10.1)
[2022-04-10 13:18] LABS: ALBUMIN 4.1 g/dl (3.4-5.0); BLOOD UREA NITROGEN 29.8 mg/dL (7-18)
[2022-04-10 13:20] LABS: CREATININE 1.2 mg/dL (0.55-1.3)
[2022-04-10 13:22] LABS: BILIRUBIN,TOTAL 0.5 mg/dL (0.2-1); TOT PROT 6.9 g/dl (6.4-8.2)
[2022-04-10 13:34] LABS: ERYTHROCYTE SEDIMENTATION RATE 12 mm/hr (0-30)
[2022-04-10] MEDS ORDERED: MAG HYDROX/AL HYDROX/SIMETH -MYLANTA- ORAL SUSPENSION PO ONE (14:28)
[2022-04-10] MEDS ORDERED: MAG HYDROX/AL HYDROX/SIMETH 30 ML UNIT-DOSE CUP ONE (14:44)
[2022-04-10] MEDS ORDERED: CEFTRIAXONE 1 GM in DEXTROSE 5%-WATER - 100 ML IVPB ONE (18:26)
[2022-04-10] MEDS ORDERED: CEFTRIAXONE 1 GM/50 ML BAG ONE (18:43)
[2022-04-10] MEDS ORDERED: ACETAMINOPHEN INJECTION 100 ML IVPB ONE (20:45)
[2022-04-10] MEDS ORDERED: KETOROLAC TROMETHAMINE 15 MG/ML VIAL IVPB ONE (23:04)
[2022-04-10] MEDS: MONTELUKAST NA 10 MG TABLET PO SCH (23:44)
[2022-04-11] MEDS: LIDOCAINE PATCH REMOVAL MC SCH ×2 (00:20→21:36)
[2022-04-11] MEDS: traMADol HCL 50 MG TABLET PO PRN ×2 (02:58→14:51)
[2022-04-11] MEDS: VALSARTAN 160 MG TABLET PO SCH (09:30)
[2022-04-11] MEDS: HYDROCHLOROTHIAZIDE 25 MG TABLET (FP) PO SCH (09:30)
[2022-04-11] MEDS: MULTIVITAMINS (DAILY MVI) TABLET (FP) PO SCH (09:30)
[2022-04-11] MEDS: LIDOCAINE 5% TOPICAL PATCH TP SCH (09:30)
[2022-04-11] MEDS: CEFTRIAXONE 1 GM in DEXTROSE 5%-WATER - 50 ML IVPB SCH (09:31)
[2022-04-11] MEDS ORDERED: morphine SULFATE 4 MG/ML VIAL ONE (09:47)
[2022-04-11] MEDS: HEPARIN NA (PORCINE) 5,000 UNITS/ML 1ML VIAL SQ SCH ×2 (09:50→21:04)
[2022-04-11] MEDS ORDERED: morphine SULFATE 4 MG/ML VIAL IVPUSH ONE (10:00)
[2022-04-11 10:35] LABS: BASO % 0.7 % (0-2.0); EOS % 3.7 % (0-4.5); HEMATOCRIT 40.4 % (32.4-45.2); HEMOGLOBIN 13.6 GM/dL (10.7-15.3); LYMPH % 27.1 % (8-40); MCH 30.1 pg (25.7-33.7); MCHC 33.7 g/dl (32.0-36.0); MEAN CELL VOLUME 89.4 fl (80-96); MEAN PLT VOLUME 8.8 fl (7.5-11.1); MONO % 6.5 % (3.8-10.2); PLATELET COUNT 270 10^3/uL (134-434); RBC 4.52 M/mm3 (3.60-5.2); RDW 14.3 % (11.6-15.6)
[2022-04-11 10:47] LABS: CALCIUM 9.4 mg/dL (8.5-10.1)
[2022-04-11 10:49] LABS: CREATININE 1.3 mg/dL (0.55-1.3)
[2022-04-11] MEDS: KETOROLAC TROMETHAMINE 15 MG/ML VIAL IVPUSH PRN ×2 (11:21→18:03)
[2022-04-11] MEDS: PANTOPRAZOLE 40 MG TABLET PO SCH (11:22)
[2022-04-11] MEDS: BUDESONIDE/FORMETEROL FUMARATE 160/4.5 mcg INHALER IH SCH ×2 (12:51→21:36)
[2022-04-11] MEDS: GABAPENTIN 100 MG CAPSULE PO SCH ×2 (13:01→21:04)
[2022-04-11] MEDS ORDERED: DEXAMETHASONE SOD PHOSPHATE 4 MG/1 ML VIAL IVPUSH ONE (14:21)
[2022-04-11 16:49] VITALS: BMI 37.5
[2022-04-11] MEDS: DEXAMETHASONE SOD PHOSPHATE 4 MG/1 ML VIAL IVPUSH SCH (18:03)
[2022-04-11] MEDS: MONTELUKAST NA 10 MG TABLET PO SCH (21:05)
[2022-04-12] MEDS: DEXAMETHASONE SOD PHOSPHATE 4 MG/1 ML VIAL IVPUSH SCH ×2 (01:00→09:32)
[2022-04-12] MEDS: KETOROLAC TROMETHAMINE 15 MG/ML VIAL IVPUSH PRN (01:00)
[2022-04-12] MEDS: GABAPENTIN 100 MG CAPSULE PO SCH ×2 (05:02→13:53)
[2022-04-12] MEDS: CEFTRIAXONE 1 GM in DEXTROSE 5%-WATER - 50 ML IVPB SCH (09:31)
[2022-04-12] MEDS: PANTOPRAZOLE 40 MG TABLET PO SCH (09:32)
[2022-04-12] MEDS: HYDROCHLOROTHIAZIDE 25 MG TABLET (FP) PO SCH (09:32)
[2022-04-12] MEDS: VALSARTAN 160 MG TABLET PO SCH (09:32)
[2022-04-12] MEDS: BUDESONIDE/FORMETEROL FUMARATE 160/4.5 mcg INHALER IH SCH (09:32)
[2022-04-12] MEDS: MULTIVITAMINS (DAILY MVI) TABLET (FP) PO SCH (09:32)
[2022-04-12] MEDS: HEPARIN NA (PORCINE) 5,000 UNITS/ML 1ML VIAL SQ SCH (09:32)
[2022-04-12] MEDS: LIDOCAINE 5% TOPICAL PATCH TP SCH ×2 (09:32→14:09)
[2022-04-12] MEDS ORDERED: LIDOCAINE 5% TOPICAL PATCH TP ONE (14:25)
[2022-04-12 15:25] VITALS: BP 135/84; PULSE 90; RESP 20; TEMP 98.3
[2022-04-12] MEDS ORDERED: LIDOCAINE PATCH REMOVAL MC SCH (22:00)
== END 2022-04-12 15:30 | disposition home or self-care (01) | DRG 552 ==
LOC: JER 10:35 → JERBED 19:51 → J5S 21:44 → OBSVTOIN 04-12 14:00
PROVIDERS: ADMIT Internal Medicine; ATTEND Family Medicine
DX: M51.36 Other intervertebral disc degeneration, lumbar region (principal); N39.0 Urinary tract infection, site not specified; J44.9 Chronic obstructive pulmonary disease, unspecified; M43.16 Spondylolisthesis, lumbar region; I10 Essential (primary) hypertension; G89.29 Other chronic pain; M48.061 Spinal stenosis, lumbar region without neurogenic claudication; M48.04 Spinal stenosis, thoracic region; E66.9 Obesity, unspecified; Z68.37 Body mass index [BMI] 37.0-37.9, adult; Z86.718 Personal history of other venous thrombosis and embolism
CPT/HCPCS: 0241U-QW; 36415; 72132-TC; 74177-TC; 80048; 80053; 81003; 82962; 83036; 83605; 83690; 84484; 85025; 85651; 93005; 93010; 99285-25; G0378; J1644; Q9967

== ENCOUNTER → 2022-05-28 | Day surgery (SDC) | payer OTHER, BC ==
[2022-05-23 13:39] VITALS: BMI 37.5
[~2022-05-28] MED LIST changes: -BUPIVACAINE HCL/PF 0.25% (2.5MG/ML) 10 ML VIAL IJ ONE; +TRIAMCINOLONE ACET 40MG/1ML VIAL ONE
== END | disposition home or self-care (01) ==
LOC: JASU-SURG 05:18
PROVIDERS: ATTEND Pain Medicine Pain Medicine
DX: Z53.8 Procedure and treatment not carried out for other reasons (principal)

== ENCOUNTER 2023-01-09 18:07 | Emergency (ER) | payer OTHER, BC ==
[2023-01-09 18:16] VITALS: BP 115/75; PULSE 85; RESP 18; TEMP 98.1; BMI 34.4
[2023-01-09] MEDS ORDERED: ACETAMINOPHEN 500 MG TABLET (FP) PO ONE (18:44)
[2023-01-09] MEDS ORDERED: ACETAMINOPHEN 500 MG TABLET (FP) ONE (18:46)
== END 2023-01-09 19:18 | disposition home or self-care (01) ==
LOC: JERFT 18:07
PROC: 0QSRXZZ Reposition Left Toe Phalanx, External Approach (ICD-10-PCS; principal; 2023-01-09)
DX: S92.355A Nondisplaced fracture of fifth metatarsal bone, left foot, initial encounter for closed fracture (principal); R22.42 Localized swelling, mass and lump, left lower limb; W22.8XXA Striking against or struck by other objects, initial encounter
CPT/HCPCS: 73660-TC-LT-FY; 99283-25

== ENCOUNTER 2023-10-03 13:24 | Emergency (ER) | payer OTHER, BC ==
[2023-10-03 13:32] VITALS: BMI 37.3
[2023-10-03] MEDS ORDERED: METHOCARBAMOL 500 MG TABLET ONE (15:53)
[2023-10-03] MEDS ORDERED: LIDOCAINE 4% PATCH TP ONE (15:53)
[2023-10-03] MEDS: LIDOCAINE 5% TOPICAL PATCH TP ONE (16:17)
[2023-10-03] MEDS: METHOCARBAMOL 500 MG TABLET PO ONE (16:17)
[2023-10-03 17:04] VITALS: BP 137/71; PULSE 59; RESP 17; TEMP 98.1
[2023-10-03] MEDS ORDERED: LIDOCAINE PATCH REMOVAL MC SCH (22:00)
== END 2023-10-03 17:17 | disposition home or self-care (01) ==
LOC: JER 13:24
DX: M79.652 Pain in left thigh (principal); M25.552 Pain in left hip
CPT/HCPCS: 72170-TC-FY; 73502-TC-LT-FY; 93971-TC; 99284-25

== ENCOUNTER 2024-01-03 22:56 | Emergency (ER) | payer OTHER, BC ==
[2024-01-03 23:00] VITALS: BP 137/72; PULSE 74; RESP 16; TEMP 98.6; BMI 36.4
[2024-01-04] MEDS ORDERED: ACETAMINOPHEN 325 MG TABLET (FP) ONE (00:05)
[2024-01-04] MEDS: ACETAMINOPHEN 500 MG TABLET (FP) PO ONE (00:07)
== END 2024-01-04 02:18 | disposition home or self-care (01) ==
LOC: JER 22:56
DX: S40.012A Contusion of left shoulder, initial encounter (principal); W22.8XXA Striking against or struck by other objects, initial encounter
CPT/HCPCS: 73030-TC-LT-FY; 99283-25

== ENCOUNTER 2024-06-05 00:34 | Inpatient (IN) | payer OTHER, BC ==
[2024-06-05] MEDS: ALBUTEROL SO4 2.5/IPRATROPIUM 0.5 INH SOL 3 ML VIAL.NEB. NEB SCH ×2 (01:02→02:12)
[2024-06-05 01:15] LABS: ABSOLUTE IMMATURE GRANULOCYTES 0.16 x10^3/uL (0.0-0.031); BASOPHILS # 0.06 x10^3/uL (0.01-0.08); EOSINOPHIL % 1.4 % (0.7-5.8); EOSINOPHILS # 0.21 x10^3/uL (0.04-0.36); HEMATOCRIT 38.8 % (34.1-44.9); HEMOGLOBIN 12.4 g/dL (11.2-15.7); MEAN CELL VOLUME 89.4 fl (79.4-94.8); MEAN PLT VOLUME 10.3 fl (9.4-12.3); MONOCYTE # 0.88 x10^3/uL (0.24-0.86); MONOCYTE % 5.9 % (4.7-12.5); PLATELET COUNT 237 x10^3/uL (182-369); RDW 15.1 % (12.4-16.4)
[2024-06-05] MEDS ORDERED: methylPREDNISolone NA SUCC 125 MG/2 ML VIAL ONE (01:17)
[2024-06-05 01:21] LABS: VENOUS PCO2 31.8 mmHg (38-52); VENOUS PH 7.441 (7.310-7.410)
[2024-06-05] MEDS: methylPREDNISolone NA SUCC 125 MG/2 ML VIAL IVPUSH ONE (01:22)
[2024-06-05 01:33] LABS: POTASSIUM 3.5 mmol/L (3.5-5.1)
[2024-06-05 01:35] LABS: ALBUMIN 3.5 g/dl (3.4-5.0); BLOOD UREA NITROGEN 27.8 mg/dL (7-18); CALCIUM 9.2 mg/dL (8.5-10.1)
[2024-06-05 01:39] LABS: CREATININE 1.7 mg/dL (0.55-1.3)
[2024-06-05 01:40] LABS: BILIRUBIN,TOTAL 0.5 mg/dL (0.2-1); TOT PROT 6.4 g/dl (6.4-8.2)
[2024-06-05] MEDS ORDERED: ALBUTEROL SO4 2.5/IPRATROPIUM 0.5 INH SOL 3 ML VIAL.NEB. NEB ONE ×2 (02:05→02:19)
[2024-06-05 02:13] LABS: MAGNESIUM 2.1 mg/dL (1.8-2.4)
[2024-06-05 02:19] LABS: INR 1.03 (0.83-1.09); PROTHROMBIN TIME (PATIENT) 11.3 SEC (9.7-13.0)
[2024-06-05 02:23] LABS: ACTIVATED PTT 28.4 SECONDS (25.2-36.5)
[2024-06-05] MEDS ORDERED: ENOXAPARIN NA (PORCINE) 100 MG/1 ML DISP.SYRIN SQ ONE (05:53)
[2024-06-05] MEDS: ENOXAPARIN NA (PORCINE) 40 MG/0.4 ML DISP.SYRIN SQ ONE (05:59)
[2024-06-05 06:42] LABS: URINE APPEARANCE CLEAR; URINE BILIRUBIN NEGATIVE (NEGATIVE); URINE COLOR DK YELLOW; URINE GLUCOSE (UA) NEGATIVE (NEGATIVE); URINE KETONE TRACE (NEGATIVE); URINE PROTEIN NEGATIVE (NEGATIVE)
[2024-06-05 06:43] LABS: EPI CELLS 31.6 /uL (0-25.1); HYALINE CASTS 2.19 /uL (0-3.1); URINE BACTERIA 312.7 /uL (0-1359); URINE LEUK ESTERASE 2+ (NEGATIVE); URINE NITRITE NEGATIVE (NEGATIVE); URINE RBC 26.1 /uL (0-23.9); URINE WBC 92.7 /uL (0-25.8)
[2024-06-05] MEDS ORDERED: CEFTRIAXONE 1 G/50 ML PREMIX 50 ML IVPB ONE (06:50)
[2024-06-05] MEDS: CEFTRIAXONE 1 GM in DEXTROSE 5%-WATER - 100 ML IVPB ONE (06:56)
[2024-06-05] MEDS ORDERED: LIDOCAINE 4% PATCH TP ONE (09:20)
[2024-06-05] MEDS ORDERED: ACETAMINOPHEN 500 MG TABLET (FP) ONE (09:22)
[2024-06-05] MEDS: LIDOCAINE 4% PATCH TP ONE (09:31)
[2024-06-05] MEDS: ACETAMINOPHEN 500 MG TABLET (FP) PO ONE (09:32)
[2024-06-05 12:34] VITALS: BMI 34.5
[2024-06-05] MEDS: SODIUM CHLORIDE 1,000 ML IV SCH (13:13)
[2024-06-05] MEDS: INSULIN ASPART SLIDING SCALE (NOVOLOG) 1 VIAL SQ SCH (17:20)
[2024-06-05] MEDS ORDERED: ENOXAPARIN NA (PORCINE) 120 MG/0.8 ML DISP.SYRIN SQ ONE (21:15)
[2024-06-05] MEDS: ENOXAPARIN NA (PORCINE) 120 MG/0.8 ML DISP.SYRIN SQ SCH (22:13)
[2024-06-06] MEDS: PRAMIPEXOLE DIHYDROCHLORIDE 0.25 MG TABLET PO ONE (03:29)
[2024-06-06] MEDS: FAMOTIDINE 20 MG/50 ML IVPB 20 MG/50 ML MG IVPB ONE (03:56)
[2024-06-06 08:16] LABS: BASOPHILS # 0.05 x10^3/uL (0.01-0.08); EOSINOPHILS # 0.13 x10^3/uL (0.04-0.36); HEMATOCRIT 34.8 % (34.1-44.9); HEMOGLOBIN 11.2 g/dL (11.2-15.7); MCHC 32.2 g/dl (32.2-35.5); MEAN CELL VOLUME 89.7 fl (79.4-94.8); MEAN PLT VOLUME 10.4 fl (9.4-12.3); MONOCYTE # 0.89 x10^3/uL (0.24-0.86); MONOCYTE % 6.6 % (4.7-12.5); PLATELET COUNT 206 x10^3/uL (182-369); RDW 15.2 % (12.4-16.4)
[2024-06-06] MEDS: ALBUTEROL SO4 HFA INHALER IH PRN (08:26)
[2024-06-06] MEDS: CEFTRIAXONE 1 G/50 ML PREMIX 50 ML IVPB SCH (08:27)
[2024-06-06 08:35] LABS: POTASSIUM 3.6 mmol/L (3.5-5.1)
[2024-06-06 08:54] LABS: BLOOD UREA NITROGEN 22.5 mg/dL (7-18); CALCIUM 8.8 mg/dL (8.5-10.1)
[2024-06-06 08:55] LABS: ALBUMIN 2.9 g/dl (3.4-5.0)
[2024-06-06 08:59] LABS: BILIRUBIN,TOTAL 0.5 mg/dL (0.2-1); TOT PROT 5.4 g/dl (6.4-8.2)
[2024-06-06] MEDS: ASPIRIN 81 MG CHEWABLE TABLETS PO SCH (09:35)
[2024-06-06] MEDS: GABAPENTIN 300 MG CAPSULE PO SCH (09:35)
[2024-06-06] MEDS ORDERED: METHOCARBAMOL 750 MG TABLET PO PRN (10:39)
[2024-06-06] MEDS: LIDOCAINE 4% PATCH TP SCH (11:06)
[2024-06-06] MEDS: SODIUM CHLORIDE 1,000 ML IV SCH (11:07)
[2024-06-06] MEDS: MONTELUKAST NA 10 MG TABLET PO SCH (18:09)
[2024-06-06] MEDS: PRAMIPEXOLE DIHYDROCHLORIDE 0.25 MG TABLET PO SCH (21:23)
[2024-06-06] MEDS: METHOCARBAMOL 500 MG TABLET PO PRN (21:29)
[2024-06-06] MEDS: LIDOCAINE PATCH REMOVAL MC SCH (22:01)
[2024-06-06] MEDS: BUDESONIDE/FORMETEROL FUMARATE 160/4.5 mcg INHALER IH SCH (22:27)
[2024-06-07 08:11] LABS: ABSOLUTE IMMATURE GRANULOCYTES 0.06 x10^3/uL (0.0-0.031); BASOPHILS # 0.07 x10^3/uL (0.01-0.08); EOSINOPHIL % 2.5 % (0.7-5.8); EOSINOPHILS # 0.25 x10^3/uL (0.04-0.36); HEMATOCRIT 37.1 % (34.1-44.9); HEMOGLOBIN 11.7 g/dL (11.2-15.7); MCHC 31.5 g/dl (32.2-35.5); MEAN CELL VOLUME 91.2 fl (79.4-94.8); MEAN PLT VOLUME 10.2 fl (9.4-12.3); MONOCYTE # 0.57 x10^3/uL (0.24-0.86); MONOCYTE % 5.8 % (4.7-12.5); PLATELET COUNT 212 x10^3/uL (182-369); RDW 15.5 % (12.4-16.4)
[2024-06-07 08:38] LABS: POTASSIUM 3.6 mmol/L (3.5-5.1)
[2024-06-07 08:44] LABS: BLOOD UREA NITROGEN 15.7 mg/dL (7-18); CALCIUM 8.6 mg/dL (8.5-10.1)
[2024-06-07 08:48] LABS: CREATININE 0.9 mg/dL (0.55-1.3)
[2024-06-07 08:49] LABS: BILIRUBIN,TOTAL 0.6 mg/dL (0.2-1); TOT PROT 5.6 g/dl (6.4-8.2)
[2024-06-08 16:38] LABS: POTASSIUM 3.8 mmol/L (3.5-5.1)
[2024-06-08 16:40] LABS: ALBUMIN 2.9 g/dl (3.4-5.0); BLOOD UREA NITROGEN 11.5 mg/dL (7-18); CALCIUM 8.5 mg/dL (8.5-10.1)
[2024-06-08 16:45] LABS: BILIRUBIN,TOTAL 0.2 mg/dL (0.2-1); TOT PROT 5.5 g/dl (6.4-8.2)
[2024-06-08] MEDS: ALBUTEROL SO4 0.083% IH SOL 2.5 MG/3 ML VIAL.NEB. NEB ONE (19:20)
[2024-06-08] MEDS: APIXABAN 5 MG TABLET PO SCH (21:15)
[2024-06-09] MEDS: ACETAMINOPHEN 500 MG TABLET (FP) PO ONE (03:29)
[2024-06-09 08:52] VITALS: RESP 16
[2024-06-09] MEDS: CEFUROXIME AXETIL 500 MG TABLET PO ONE (10:25)
[2024-06-09 16:40] VITALS: BP 138/66; PULSE 68; TEMP 98.9
== END 2024-06-09 18:39 | disposition home or self-care (01) | DRG 299 ==
LOC: JER 00:34 → JERBED 05:24 → J6S 11:44 → OBSVTOIN 13:27 → J6S 06-06 12:18
PROVIDERS: ADMIT Internal Medicine; ATTEND Internal Medicine
DX: I82.431 Acute embolism and thrombosis of right popliteal vein (principal); I26.99 Other pulmonary embolism without acute cor pulmonale; J44.1 Chronic obstructive pulmonary disease with (acute) exacerbation; J45.901 Unspecified asthma with (acute) exacerbation; N39.0 Urinary tract infection, site not specified; N17.9 Acute kidney failure, unspecified; I10 Essential (primary) hypertension
CPT/HCPCS: 0241U-QW; 36415; 71045-TC-FY; 71260-TC; 80053; 80061; 81003; 82803; 82962; 83036; 83735; 83880; 84439; 84443; 84484; 85025; 85379; 85610; 85730; 87086; 93005; 93010; 93306-TC; 93970-TC; 94640; 99285-25; G0378; Q9967

== ENCOUNTER 2024-10-24 07:18 | Inpatient (IN) | payer OTHER, BC ==
[2024-10-24] MEDS: VANCOMYCIN HCL 1,500 MG in DEXTROSE 5%-WATER - 500 ML IVPB ONE (08:26)
[2024-10-24 08:28] LABS: ABSOLUTE IMMATURE GRANULOCYTES 0.11 x10^3/uL (0.0-0.031); BASOPHILS # 0.04 x10^3/uL (0.01-0.08); EOSINOPHIL % 1.0 % (0.7-5.8); EOSINOPHILS # 0.12 x10^3/uL (0.04-0.36); MCHC 30.4 g/dl (32.2-35.5); MEAN CELL VOLUME 90.1 fl (79.4-94.8); MEAN PLT VOLUME 10.2 fl (9.4-12.3); MONOCYTE # 1.04 x10^3/uL (0.24-0.86); MONOCYTE % 8.2 % (4.7-12.5); RDW 20.2 % (12.4-16.4)
[2024-10-24 08:36] LABS: INR 1.41 (0.83-1.09); PROTHROMBIN TIME (PATIENT) 15.4 SEC (9.7-13.0)
[2024-10-24 08:39] LABS: ACTIVATED PTT 45.2 SECONDS (25.2-36.5)
[2024-10-24 08:41] LABS: BG HCT 29.0 % (32.4-45.2); VENOUS BASE EXCESS -0.9 mmol/L (-2-2); VENOUS O2 SATURATION 68.9 % (70-80); VENOUS PCO2 39.3 mmHg (38-52); VENOUS PH 7.4 (7.310-7.410)
[2024-10-24] MEDS: LACTATED RINGERS SOLUTION 1000 ML INFUS.BAG IV ONE (08:46)
[2024-10-24] MEDS: SODIUM CHLORIDE 0.9% 500 ML INFUS.BAG IV ONE ×2 (08:47→10:08)
[2024-10-24] MEDS ORDERED: PIPERACILLIN/TAZOB 4.5 GM 4.5 GM/100 ML BAG IVPB ONE (08:52)
[2024-10-24] MEDS: PIPERACILLIN/TAZOB 4.5 GM 4.5 GM in DEXTROSE 5%-WATER 100 ML IVPB ONE (08:58)
[2024-10-24 09:09] LABS: GLUCOSE,RANDOM 105.0 mg/dL (74-106)
[2024-10-24 09:10] LABS: TOT PROT 5.5 g/dl (6.4-8.2)
[2024-10-24 09:11] LABS: CO2 25.0 mmol/L (21-32)
[2024-10-24 09:12] LABS: ALK PHOS 273.0 U/L (40-150)
[2024-10-24 09:15] LABS: CREATININE 0.96 mg/dL (0.55-1.3); SGOT/AST 67.0 U/L (5-34); SGPT/ALT 77.0 U/L (0-55)
[2024-10-24] MEDS: VANCOMYCIN PREMIX 1.5 GM 1,500 MG/300 ML BAG IVPB ONE (09:29)
[2024-10-24 09:51] LABS: EPI CELLS 31 /uL (0-25.1); HYALINE CASTS 3 /uL (0-3.1); URINE APPEARANCE TURBID; URINE BILIRUBIN NEGATIVE (NEGATIVE); URINE COLOR YELLOW; URINE GLUCOSE (UA) NEGATIVE (NEGATIVE); URINE KETONE NEGATIVE (NEGATIVE); URINE LEUK ESTERASE 3+ (NEGATIVE); URINE NITRITE POSITIVE (NEGATIVE); URINE PROTEIN 1+ (NEGATIVE); URINE RBC 19 /uL (0-23.9); URINE UROBILINOGEN 0.2 mg/dL (0.2-1.0); URINE WBC 3235 /uL (0-25.8)
[2024-10-24] MEDS ORDERED: ACETAMINOPHEN INJECTION 100 ML ONE (10:08)
[2024-10-24] MEDS: ACETAMINOPHEN 1000 MG/100 ML BAG IVPB ONE ×2 (10:11→19:37)
[2024-10-24 11:45] LABS: URINE BACTERIA 881 /uL (0-1359)
[2024-10-24] MEDS ORDERED: ALBUTEROL SO4 HFA INHALER IH PRN (13:55)
[2024-10-24] MEDS ORDERED: LIDOCAINE 5% TOPICAL PATCH ONE (14:06)
[2024-10-24] MEDS: LIDOCAINE 5% TOPICAL PATCH TP ONE (14:39)
[2024-10-24] MEDS ORDERED: ENOXAPARIN NA (PORCINE) 100 MG/1 ML DISP.SYRIN SQ SCH (15:00)
[2024-10-24 15:02] LABS: IRON SERUM 10.0 ug/dL (50-175)
[2024-10-24] MEDS: ENOXAPARIN NA (PORCINE) 120 MG/0.8 ML DISP.SYRIN SQ SCH (17:17)
[2024-10-24] MEDS: ALBUTEROL SULFATE 0.021% (0.63 MG/3 ML) VIAL.NEB NEB SCH (18:10)
[2024-10-24] MEDS: ACETAMINOPHEN 325 MG TABLET (FP) PO PRN (18:17)
[2024-10-24] MEDS: SODIUM CHLORIDE 1,000 ML IV STA (19:35)
[2024-10-24] MEDS: PIPERACILLIN/TAZOB 3.375 GM 3.375 GM in DEXTROSE 5%-WATER - 50 ML IVPB SCH (19:52)
[2024-10-24] MEDS: SODIUM CHLORIDE 500 ML IV STA (20:04)
[2024-10-24] MEDS: ATORVASTATIN CA 10 MG TABLET (FP) PO SCH (21:05)
[2024-10-24] MEDS: PREGABALIN 75 MG CAPSULE PO SCH (21:05)
[2024-10-24] MEDS: MONTELUKAST NA 10 MG TABLET PO SCH (21:05)
[2024-10-24] MEDS: BUDESONIDE/FORMETEROL FUMARATE 160/4.5 mcg INHALER IH SCH (21:45)
[2024-10-24] MEDS: LIDOCAINE PATCH REMOVAL MC SCH (22:58)
[2024-10-25] MEDS: SODIUM CHLORIDE 500 ML IV STA ×2 (00:34→03:10)
[2024-10-25] MEDS: ACETAMINOPHEN 325 MG TABLET (FP) PO PRN (00:35)
[2024-10-25 06:33] LABS: MCHC 30.8 g/dl (32.2-35.5); MEAN CELL VOLUME 89.4 fl (79.4-94.8); MEAN PLT VOLUME 10.3 fl (9.4-12.3); RDW 19.7 % (12.4-16.4)
[2024-10-25 07:00] LABS: GLUCOSE,RANDOM 117.0 mg/dL (74-106); TOT PROT 4.8 g/dl (6.4-8.2)
[2024-10-25 07:01] LABS: CO2 22.0 mmol/L (21-32)
[2024-10-25 07:05] LABS: SGOT/AST 29.0 U/L (5-34); SGPT/ALT 37.0 U/L (0-55)
[2024-10-25 07:06] LABS: CREATININE 0.88 mg/dL (0.55-1.3)
[2024-10-25 07:12] LABS: ALK PHOS 208.0 U/L (40-150)
[2024-10-25] MEDS: PIPERACILLIN/TAZOB 2.25 GM 2.25 GM in DEXTROSE 5%-WATER - 50 ML IVPB SCH (07:36)
[2024-10-25] MEDS: SODIUM CHLORIDE 250 ML IV STA (08:02)
[2024-10-25] MEDS: SODIUM CHLORIDE 1,000 ML IV SCH (09:48)
[2024-10-25] MEDS: COLCHICINE 0.6 MG TAB PO SCH (09:50)
[2024-10-25] MEDS: MIDODRINE HCL 2.5 MG TABLET PO SCH (09:50)
[2024-10-25] MEDS: PANTOPRAZOLE 40 MG TABLET PO SCH (09:50)
[2024-10-25] MEDS: FUROSEMIDE 20 MG TABLET (FP) PO SCH (09:56)
[2024-10-25] MEDS ORDERED: COLCHICINE 0.6 MG CAPSULE PO SCH (10:00)
[2024-10-25] MEDS: ALBUTEROL SO4 HFA INHALER IH PRN (13:01)
[2024-10-25] MEDS: POTASSIUM CHLORIDE ORAL LIQUID 20 MEQ/15 ML PO ONE (14:07)
[2024-10-25] MEDS: ALBUTEROL SULFATE 0.021% (0.63 MG/3 ML) VIAL.NEB NEB SCH (15:10)
[2024-10-25] MEDS: PIPERACILLIN/TAZOB 3.375 GM 3.375 GM in DEXTROSE 5%-WATER - 50 ML IVPB SCH (17:11)
[2024-10-25] MEDS: IRON SUCROSE INJECTION 200 MG in SODIUM CHLORIDE 100 ML IVPB ONE (18:05)
[2024-10-25] MEDS: ATORVASTATIN CA 10 MG TABLET (FP) PO SCH (21:24)
[2024-10-25] MEDS: BUDESONIDE/FORMETEROL FUMARATE 160/4.5 mcg INHALER IH SCH (21:25)
[2024-10-25] MEDS: MONTELUKAST NA 10 MG TABLET PO SCH (21:25)
[2024-10-25] MEDS: ENOXAPARIN NA (PORCINE) 120 MG/0.8 ML DISP.SYRIN SQ SCH (21:25)
[2024-10-25] MEDS: PREGABALIN 75 MG CAPSULE PO SCH (21:25)
[2024-10-26 07:23] LABS: ABSOLUTE IMMATURE GRANULOCYTES 0.08 x10^3/uL (0.0-0.031); BASOPHILS # 0.02 x10^3/uL (0.01-0.08); EOSINOPHIL % 1.0 % (0.7-5.8); EOSINOPHILS # 0.10 x10^3/uL (0.04-0.36); MCHC 30.6 g/dl (32.2-35.5); MEAN CELL VOLUME 90.4 fl (79.4-94.8); MEAN PLT VOLUME 10.2 fl (9.4-12.3); MONOCYTE # 0.69 x10^3/uL (0.24-0.86); MONOCYTE % 7.0 % (4.7-12.5); RDW 19.7 % (12.4-16.4)
[2024-10-26] MEDS: PIPERACILLIN/TAZOB 3.375 GM 3.375 GM in DEXTROSE 5%-WATER - 50 ML IVPB SCH (07:32)
[2024-10-26 08:30] LABS: GLUCOSE,RANDOM 122.0 mg/dL (74-106)
[2024-10-26 08:31] LABS: CO2 19.0 mmol/L (21-32); TOT PROT 5.0 g/dl (6.4-8.2)
[2024-10-26 08:36] LABS: CREATININE 0.78 mg/dL (0.55-1.3); SGOT/AST 22.0 U/L (5-34); SGPT/ALT 27.0 U/L (0-55)
[2024-10-26 08:51] LABS: ALK PHOS 239.0 U/L (40-150)
[2024-10-26] MEDS: PANTOPRAZOLE 40 MG TABLET PO SCH (10:36)
[2024-10-26] MEDS: FUROSEMIDE 20 MG TABLET (FP) PO SCH (10:37)
[2024-10-26] MEDS: POTASSIUM CHLORIDE ORAL LIQUID 20 MEQ/15 ML PO ONE (18:19)
[2024-10-26] MEDS: FUROSEMIDE 40 MG/4 ML INJECTABLE VIAL IVPUSH SCH (18:20)
[2024-10-27 08:25] LABS: ABSOLUTE IMMATURE GRANULOCYTES 0.08 x10^3/uL (0.0-0.031); BASOPHILS # 0.03 x10^3/uL (0.01-0.08); EOSINOPHIL % 2.7 % (0.7-5.8); EOSINOPHILS # 0.26 x10^3/uL (0.04-0.36); MCHC 32.2 g/dl (32.2-35.5); MEAN CELL VOLUME 87.8 fl (79.4-94.8); MEAN PLT VOLUME 9.9 fl (9.4-12.3); MONOCYTE # 0.58 x10^3/uL (0.24-0.86); MONOCYTE % 6.0 % (4.7-12.5); RDW 18.1 % (12.4-16.4)
[2024-10-27 09:12] LABS: GLUCOSE,RANDOM 97.0 mg/dL (74-106)
[2024-10-27 09:13] LABS: CO2 24.0 mmol/L (21-32); TOT PROT 5.6 g/dl (6.4-8.2)
[2024-10-27 09:17] LABS: LDH 168.0 U/L (84-246)
[2024-10-27 09:18] LABS: CREATININE 0.79 mg/dL (0.55-1.3); SGOT/AST 19.0 U/L (5-34); SGPT/ALT 23.0 U/L (0-55)
[2024-10-27 09:30] LABS: ALK PHOS 264.0 U/L (40-150)
[2024-10-27] MEDS: CYANOCOBALAMIN (VITAMIN B-12) 1000 MCG/1 ML VIAL IM SCH (10:21)
[2024-10-27] MEDS: POLYETHYLENE GLYCOL (HEALTHYLAX) 3350 17 GM PACKET PO SCH (16:27)
[2024-10-27] MEDS: BISACODYL 5 MG TABLET.DR (FP) PO ONE (18:47)
[2024-10-27] MEDS: PEG 3350/NA SULF BICARB CL/KCL 4000 ML SOLN.RECON PO ONE (18:47)
[2024-10-28 08:41] LABS: ABSOLUTE IMMATURE GRANULOCYTES 0.10 x10^3/uL (0.0-0.031); BASOPHILS # 0.05 x10^3/uL (0.01-0.08); EOSINOPHIL % 2.9 % (0.7-5.8); EOSINOPHILS # 0.30 x10^3/uL (0.04-0.36); MCHC 31.2 g/dl (32.2-35.5); MEAN CELL VOLUME 89.5 fl (79.4-94.8); MEAN PLT VOLUME 10.3 fl (9.4-12.3); MONOCYTE # 0.59 x10^3/uL (0.24-0.86); MONOCYTE % 5.7 % (4.7-12.5); RDW 18.5 % (12.4-16.4)
[2024-10-28 08:47] LABS: INR 1.21 (0.83-1.09); PROTHROMBIN TIME (PATIENT) 13.2 SEC (9.7-13.0)
[2024-10-28] MEDS: ALBUTEROL SO4 2.5/IPRATROPIUM 0.5 INH SOL 3 ML VIAL.NEB. NEB SCH (12:00)
[2024-10-28] MEDS: PEG 3350/NA SULF BICARB CL/KCL 4000 ML SOLN.RECON PO ONE (16:24)
[2024-10-28] MEDS: BISACODYL 5 MG TABLET.DR (FP) PO ONE (16:27)
[2024-10-29 08:54] LABS: ABSOLUTE IMMATURE GRANULOCYTES 0.06 x10^3/uL (0.0-0.031); BASOPHILS # 0.04 x10^3/uL (0.01-0.08); EOSINOPHIL % 3.3 % (0.7-5.8); EOSINOPHILS # 0.29 x10^3/uL (0.04-0.36); MCHC 31.4 g/dl (32.2-35.5); MEAN CELL VOLUME 89.8 fl (79.4-94.8); MEAN PLT VOLUME 9.7 fl (9.4-12.3); MONOCYTE # 0.51 x10^3/uL (0.24-0.86); MONOCYTE % 5.8 % (4.7-12.5); RDW 18.7 % (12.4-16.4)
[2024-10-29 09:03] LABS: INR 1.19 (0.83-1.09); PROTHROMBIN TIME (PATIENT) 13.1 SEC (9.7-13.0)
[2024-10-29 09:40] LABS: GLUCOSE,RANDOM 83.0 mg/dL (74-106); TOT PROT 5.5 g/dl (6.4-8.2)
[2024-10-29 09:41] LABS: CO2 26.0 mmol/L (21-32)
[2024-10-29 09:45] LABS: SGOT/AST 14.0 U/L (5-34); SGPT/ALT 13.0 U/L (0-55)
[2024-10-29 09:46] LABS: CREATININE 0.74 mg/dL (0.55-1.3)
[2024-10-29 10:15] LABS: ALK PHOS 211.0 U/L (40-150)
[2024-10-29] MEDS ORDERED: MIDAZOLAM HCL 2 MG/2 ML SINGLE DOSE VIAL ONE (10:46)
[2024-10-29] MEDS: POTASSIUM CHLORIDE ORAL LIQUID 20 MEQ/15 ML PO ONE ×2 (15:21→16:49)
[2024-10-30] MEDS: IRON SUCROSE INJECTION 200 MG in SODIUM CHLORIDE 100 ML IVPB ONE (12:31)
[2024-10-30] MEDS: BANATROL PLUS POWDER PACKET PO SCH (21:40)
[2024-10-31 15:42] LABS: ABSOLUTE IMMATURE GRANULOCYTES 0.21 x10^3/uL (0.0-0.031); BASOPHILS # 0.04 x10^3/uL (0.01-0.08); EOSINOPHIL % 1.8 % (0.7-5.8); EOSINOPHILS # 0.21 x10^3/uL (0.04-0.36); MCHC 31.0 g/dl (32.2-35.5); MEAN CELL VOLUME 92.6 fl (79.4-94.8); MEAN PLT VOLUME 9.3 fl (9.4-12.3); MONOCYTE # 0.52 x10^3/uL (0.24-0.86); MONOCYTE % 4.6 % (4.7-12.5); RDW 18.8 % (12.4-16.4)
[2024-10-31 16:20] LABS: GLUCOSE,RANDOM 109.0 mg/dL (74-106); TOT PROT 6.1 g/dl (6.4-8.2)
[2024-10-31 16:21] LABS: CO2 24.0 mmol/L (21-32)
[2024-10-31 16:26] LABS: CREATININE 0.97 mg/dL (0.55-1.3); SGOT/AST 13.0 U/L (5-34); SGPT/ALT 9.0 U/L (0-55)
[2024-10-31 16:46] LABS: ALK PHOS 171.0 U/L (40-150)
[2024-10-31] MEDS: POTASSIUM CHLORIDE TABS 20 MEQ TABLET.ER (FP) PO ONE (23:02)
[2024-11-01 07:47] LABS: ABSOLUTE IMMATURE GRANULOCYTES 0.17 x10^3/uL (0.0-0.031); BASOPHILS # 0.04 x10^3/uL (0.01-0.08); EOSINOPHIL % 3.8 % (0.7-5.8); EOSINOPHILS # 0.38 x10^3/uL (0.04-0.36); MCHC 30.3 g/dl (32.2-35.5); MEAN CELL VOLUME 93.1 fl (79.4-94.8); MEAN PLT VOLUME 9.2 fl (9.4-12.3); MONOCYTE # 0.55 x10^3/uL (0.24-0.86); MONOCYTE % 5.5 % (4.7-12.5); RDW 19.0 % (12.4-16.4)
[2024-11-01 08:10] LABS: GLUCOSE,RANDOM 103.0 mg/dL (74-106); TOT PROT 6.0 g/dl (6.4-8.2)
[2024-11-01 08:12] LABS: CO2 25.0 mmol/L (21-32)
[2024-11-01 08:16] LABS: ALK PHOS 153.0 U/L (40-150); CREATININE 0.86 mg/dL (0.55-1.3); SGOT/AST 12.0 U/L (5-34); SGPT/ALT 11.0 U/L (0-55)
[2024-11-01 22:10] VITALS: BMI 34.2
[2024-11-01] MEDS: PREGABALIN 75 MG CAPSULE PO SCH (22:13)
[2024-11-02 07:18] VITALS: RESP 16
[2024-11-02 09:00] VITALS: BP 117/60; PULSE 87; TEMP 97.9
[2024-11-02] MEDS: ALBUTEROL SULFATE 0.021% (0.63 MG/3 ML) VIAL.NEB NEB PRN (12:15)
== END 2024-11-02 13:40 | DRG 812 ==
LOC: JER 07:18 → JERBED 11:35 → J7W 16:37 → J4S 10-25 11:01
PROVIDERS: ADMIT Family Medicine; ATTEND Family Medicine
PROC: 30233N1 Transfusion of Nonautologous Red Blood Cells into Peripheral Vein, Percutaneous Approach (ICD-10-PCS; 2024-10-26)
PROC: 0DB68ZX Excision of Stomach, Via Natural or Artificial Opening Endoscopic, Diagnostic (ICD-10-PCS; 2024-10-29)
PROC: 0DBM8ZX Excision of Descending Colon, Via Natural or Artificial Opening Endoscopic, Diagnostic (ICD-10-PCS; 2024-10-29)
PROC: 0DBL8ZX Excision of Transverse Colon, Via Natural or Artificial Opening Endoscopic, Diagnostic (ICD-10-PCS; 2024-10-29)
PROC: 0DB98ZX Excision of Duodenum, Via Natural or Artificial Opening Endoscopic, Diagnostic (ICD-10-PCS; principal; 2024-10-29 12:00)
DX: D50.9 Iron deficiency anemia, unspecified (principal); N39.0 Urinary tract infection, site not specified; I10 Essential (primary) hypertension; I48.91 Unspecified atrial fibrillation; J44.9 Chronic obstructive pulmonary disease, unspecified; E11.9 Type 2 diabetes mellitus without complications; K57.10 Diverticulosis of small intestine without perforation or abscess without bleeding; I95.89 Other hypotension; E87.6 Hypokalemia; K63.5 Polyp of colon; K64.8 Other hemorrhoids
CPT/HCPCS: 36415; 36430; 71045-TC-FY; 74177-TC; 80053; 81003; 82272; 82607; 82728; 82746; 82803; 82962; 83010; 83036; 83516; 83540; 83550; 83605; 83615; 83735; 84484; 85025; 85027; 85610; 85730; 86340; 86850; 86900; 86901; 86922; 87040; 87086; 87637-QW; 88305-TC; 88342-TC; 93005; 93010; 94640; 97116-GP; 97161-GP; 99291; J1756; P9058; Q9967